=== PATIENT | female | born 1940 | race Caucasian/White ===

== ENCOUNTER → 2019-08-24 11:00 | Outpatient (BNVA) | payer MEDICARE, OTHER, SELFPAY | PROVIDERS: Family Provider Nurse Practitioner Family; PCP Nurse Practitioner Family; Visit Provider Nurse Practitioner Family | DX: J22 Unspecified acute lower respiratory infection (principal); J06.9 Acute upper respiratory infection, unspecified; H66.003 Acute suppurative otitis media without spontaneous rupture of ear drum, bilateral; E11.69 Type 2 diabetes mellitus with other specified complication; E78.5 Hyperlipidemia, unspecified; E55.9 Vitamin D deficiency, unspecified; I10 Essential (primary) hypertension; E11.9 Type 2 diabetes mellitus without complications; E03.9 Hypothyroidism, unspecified; Z79.899 Other long term (current) drug therapy | CPT/HCPCS: 80053; 80061; 81001; 81003; 82306; 82652; 83036; 84443; 85007; 85027; 87077; 87086; 87184; 87186 ==

== ENCOUNTER 2019-12-22 10:50 | Outpatient (CLI) | payer MEDICARE, OTHER, SELFPAY ==
--- NOTE | 2019-12-22 10:57 | FL_ITS ---
WS: [id number] Modified barium swallow, 12/22/2019 Clinical Data: Other dysphagia Comparison: None. Fluoroscopy time: 1.8 minutes. Findings: The patient had difficulty initiating swallowing. Frequently the bolus would pool at the vallecula a nd a second bolus of liquid as necessary to propel it distally. There was no aspiration or penetratio n. FL/FL barium swallow modifd [id number] Impression: 1. Poor initiation of swallowing. 2. Pooling of the bolus at the vallecula. 3. Negative for aspiration or penetration.
== END 2019-12-22 10:51 | disposition home or self-care (01) ==
LOC: RAD 10:54
PROVIDERS: Family Provider Nurse Practitioner Family; PCP Nurse Practitioner Family; Visit Provider Otolaryngology
DX: R13.19 Other dysphagia (principal)
CPT/HCPCS: 74230; 92611

== ENCOUNTER 2020-01-12 06:00 | Outpatient (RCR) | payer MEDICARE, OTHER, SELFPAY | END 2020-02-11 23:59 | disposition home or self-care (01) | LOC: WST 06:00 | PROVIDERS: PCP Nurse Practitioner Family; Referring Provider Nurse Practitioner Family; Visit Provider Nurse Practitioner Family | DX: D49.6 Neoplasm of unspecified behavior of brain (principal); J38.00 Paralysis of vocal cords and larynx, unspecified; R13.10 Dysphagia, unspecified | CPT/HCPCS: 92524; 92526; 92610 ==

== ENCOUNTER 2020-02-07 09:55 | Outpatient (CLI) | payer MEDICARE, OTHER, SELFPAY ==
--- NOTE | 2020-02-07 10:20 | ECG_ITS ---
[facility] Test Date: 2020-02-07 Pat Name: Kaur Garland Department: Room: Gender: Female Test Carrier: : 1940 Requested By: Robin Washington Order Number: [id number] Feli MD: Emeli Huggins M.D. Measurements Intervals [place] Rate: 79 P: 4 NM: 153 QRS: -3 QRSD: 94 T: 16 QT: 344 QTc: 395 Interpretive Statements SINUS RHYTHM WITH OCCASIONAL SUPRAVENTRICULAR PREMATURE COMPLEXES Compared to ECG 10/13/2018 15:53:08 No significant changes Electronically Signed On 02-07-2020 21:39:10 CDT by Emeli Huggins M.D. [id number]
[2020-02-07 10:42] LABS: Basophils # 0.1 10^3/uL (0.0-0.1); Basophils % 0.8 %; Eosinophils # 0.1 10^3/uL (0.0-0.8); Eosinophils % 1.9 %; Hematocrit 44.5 % (37.0-47.0); Hemoglobin 14.6 g/dL (11.5-15.3); Lymphocytes # 1.3 10^3/uL (0.8-4.8); Lymphocytes % 21.1 %; Mean Corpuscular HGB Conc 32.8 g/dL (30.0-36.0); Mean Corpuscular Hemoglobin 29.4 pg (28.0-34.0); Mean Corpuscular Volume 89.7 fL (81-99); Mean Platelet Volume 10.9 fL (7.4-10.4); Monocytes # 0.5 10^3/uL (0.2-0.9); Monocytes % 8.6 %; Neutrophils % 66.6 %; Nucleated Red Blood Cells % 0 %; Platelet Count 226 10^3/cmm (130-400); Red Blood Count 4.96 10^6/uL (4.1-5.3); Red Cell Distribution Width 13.2 % (12.1-15.1); White Blood Count 6.2 10^3/uL (4.0-10.0)
[2020-02-07 10:51] LABS: Blood Urea Nitrogen 19 mg/dL (8-23); Calcium 8.7 mg/dL (8.5-10.5); Carbon Dioxide 25 mmol/L (22-29); Chloride 97 mmol/L (98-107); Glucose 156 mg/dL (65-115); Osmolality Calculated 282 mOsm/kg (285-295); Sodium 136 mmol/L (136-145)
[2020-02-07 10:57] LABS: Anion Gap 18.2 (5-19); Potassium 4.2 mmol/L (3.5-5.1)
== END 2020-02-07 09:56 | disposition home or self-care (01) ==
LOC: RT 09:59
PROVIDERS: PCP Nurse Practitioner Family; Visit Provider Specialist
DX: Z01.810 Encounter for preprocedural cardiovascular examination (principal); I47.1 Supraventricular tachycardia
CPT/HCPCS: 12345; 36415; 80048; 80053; 85007; 85025; 85027; 93005; 96375; G0378; J2405; J3490; J7799

== ENCOUNTER 2020-02-12 06:00 | Outpatient (RCR) | payer MEDICARE, OTHER, SELFPAY | END 2020-03-13 23:59 | disposition home or self-care (01) | LOC: WST 06:00 | PROVIDERS: PCP Nurse Practitioner Family; Referring Provider Nurse Practitioner Family; Visit Provider Nurse Practitioner Family | DX: D49.6 Neoplasm of unspecified behavior of brain (principal); J38.00 Paralysis of vocal cords and larynx, unspecified; R13.10 Dysphagia, unspecified | CPT/HCPCS: 92507; 92526 ==

== ENCOUNTER 2020-02-15 06:41 | Day surgery (SDC) | payer MEDICARE, OTHER, SELFPAY ==
[2020-02-15] VITALS (15 sets, daily range): BP systolic 138–201; BP diastolic 59–117; PULSE 87–99; RESP 16–23; TEMP 36.1–36.5; O2SAT 95–100
[2020-02-15 07:24] LABS: Glucose Point of Care 109 mg/dL (70-110)
[2020-02-15] MEDS: sodium chloride 0.9% 1,000 ML 30 ML IV (07:38)
[2020-02-15] MEDS: hyDRALAzine 20 mg/mL INJ 1 mL 5 MG IVP (07:39)
[2020-02-15] MEDS: hyDRALAzine 20 mg/mL INJ 1 mL ×2 (07:46→08:01)
--- NOTE | 2020-02-15 08:15 | ANES.PREANE2 ---
Pre-Anesthetic Assessment Pre-Anesthetic Assessment: Height/Weight: Height 1.65 m Weight 65.771 kg Temp Pulse Resp BP Pulse Ox 97.3 F L 99 16 157/72 97 02/15/20 06:58 02/15/20 06:58 02/15/20 06:58 02/15/20 08:13 02/15/20 06:58 Proposed Procedure: Operation Date: 02/15/20 08:15 Proposed Procedures p Direct MICRO DIRECT Laryngoscopy(Bilateral) - Robin Griffin MD s True Vocal Cord Injection(Bilateral) - Robin Griffin MD Familial anesthetic complications: PONV Last intake: Intake Last Liquid Date 02/14/20 Last Liquid Time 22:00 Last Solid Date 02/14/20 Last Solid Time 22:00 Social: Social History: No alcohol and No tobacco Exam: Pre-Anes Outpt Exam: alert, oriented x 3, clear to auscultation bilaterally and regular rate & rhythm Airway: Cervical ROM: WNL MP: 2 Dentition: False Pulmonary: Pulmonary: None reported CV/HEM: CV/HEM: HTN : : None reported Hepatic: Hepatic: None reported GI: GI: GERD Metabolic: Metabolic: DM, Hyperlipidemia and Thyroid Musc/skel: Musc/skel: None reported Neuropsych: Neuropsych: None reported Anesthetic Plan: ASA status: 2 Anesthesia: General Risk of > 500 ml blood loss (7ml/kg in children): No Meds/Allergies Current Medications: Current Medications Generic Name Dose Route Start Last Admin Trade Name Freq PRN Reason Stop Dose Admin Hydralazine HCl 5 mg 02/15/20 07:27 02/15/20 07:39 Apresoline IVP 5 mg ONCE PRN Administration HTN Sodium Chloride 1,000 mls @ 30 ml s/hr 02/15/20 07:00 02/15/20 07:38 Sodium Chloride 0.9% IV 02/16/20 06:59 30 mls/hr .Q24H LOVE Administration PFSH Anesthesia PFSH: Medical History Brain tumor Cricopharyngeal achalasia Diabetes mellitus, type II Diabetic polyneuropathy Essential hypertension, benign GERD (gastroesophageal reflux disease) Hyperlipidemia associated with type 2 diabetes mellitus Patient is diabetic, and history of hyperlipidemia. Hypertension Patient has been controlled with oral blood pressure medications. Hypothyroid Smell, impaired Taste absent Vitamin D deficiency Patient has history of Vitamin D deficiency. Surgical History H/O brain surgery Brain Tumor removed 2011 History of bladder surgery S/P appendectomy S/P arthroscopy of left shoulder S/P cataract surgery S/P cholecystectomy S/P gastric bypass S/P vaginal hysterectomy Status post corneal transplant Social History Smoking and tobacco status: former smoker Second hand smoke exposure: No Smoking risk assessment/counseling performed?: No Alcohol intake: never Desire information about alcohol rehabilitation?: No Counseling given: No Desire information about substance/drug rehabilitation?: No Counseling given: No Data Anesthesia Other Labs: Laboratory Results - last 48 hr 02/15/20 07:21 POC Glucose 109 Cardiac Studies: No Data to Display
--- NOTE | 2020-02-15 08:28 | W.PM.OPSUD ---
Surgery/Procedure H&P Update DATE OF PROCEDURE: February 15, 2020 DATE H&P PERFORMED: 02/07/20 H&P UPDATE INFORMATION: I have reviewed H&P completed within last 30 days, I have examined patient prior to procedure and No changes to prior documentation PREOP DIAGNOSIS: Left true vocal cord paralysis; Hoarseness PRIMARY INDICATION FOR PROCEDURE: Chronic Hoarseness Left true vocal cord paralysis PLANNED PROCEDURE: Operation Date: 02/15/20 08:15 Proposed Procedures p Direct MICRO DIRECT Laryngoscopy(Bilateral) - Robin Griffin MD s True Vocal Cord Injection(Bilateral) - Robin Griffin MD
[2020-02-15] MEDS: clindamycin 600 MG/50 ML PREMIX 100 MG IV (08:35)
[2020-02-15] MEDS: EPINEPHrine 1 mg/mL INJ XX (08:53)
[2020-02-15] MEDS: fluorescein 1 mg Strip XX (08:54)
--- NOTE | 2020-02-15 09:10 | PM.OP ---
Operative Report Date of procedure: February 15, 2020 Pre-op Diagnosis: Left true vocal cord paralysis; Hoarseness Post-op diagnosis: same Post-op Findings: Left true vocal cord atrophy Otherwise normal laryngeal exam Implants: Prolaryn Hydroxyapatite/Gel Implant Pathology: none sent Surgeon: Robin Griffin Business Manager College Or University: [employer] Anesthesia: General Estimated blood loss (mL): 1 IV fluids (mL): 400 Complications: None Condition: stable Disposition: PACU Brief History: 80 yo wf with a h/o left true vocal cord paralysis and significant hoarseness who desires surgical therapy. Procedure: The patient was identified in the preoperative holding area and was taken to the operating room where she was placed on the operating table in the supine position. Anesthesia was obtained with general endotracheal anesthesia and the table was then turned 90 degrees to the patient's left. The patient was then prepped and draped in the usual sterile fashion. A moist Ray-Hilary was placed on the patient's maxillary gingiva and a surgical laryngoscope was advanced on the right oral cavity gutter under direct vision until the larynx came into view. An inspection was then carried to the patient's larynx with findings noted above. At this point the patient was placed on suspension and the operating microscope with a 300 lens was brought into the field was used to reinspect the larynx. The ProLaryn hydroxyapatite/gel implant was then injected in the left true vocal cord lateral to the vocal process of the arytenoid cartilage thus medializing the left true vocal cord towards the midline. Once the appropriate amount of medialization of been accomplished, attention was turned to the right true vocal cord. 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 Once this was accomplished, the procedure was terminated and control of the patient was returned to anesthesia where she underwent an uneventful reversal of anesthesia and extubation and the patient was taken to the recovery room in stable condition. There were no operative or anesthetic complications.
--- NOTE | 2020-02-15 09:11 | SUR.PHASEI ---
0925 PATIENT TO PACU FROM OR AT THIS TIME. NO DISTRESS. RR EVEN AND UNLABORED. SPO2 100% ON SIMPLE MASK AT 8L.
--- NOTE | 2020-02-15 09:33 | SUR.PHASEI ---
0928 PATIENT TO OPS, INSTRUCTED NOT TO TALK. VOICE HOARSE. PATIENT DENIES PAIN.
== END 2020-02-15 10:05 | disposition home or self-care (01) ==
PROVIDERS: PCP Nurse Practitioner Family; Visit Provider Specialist
PROC: 0CJS8ZZ Inspection of Larynx, Via Natural or Artificial Opening Endoscopic (ICD-10-PCS; CPT 31571; principal; 2020-02-15 08:15)
PROC: 3E0F3GC Introduction of Other Therapeutic Substance into Respiratory Tract, Percutaneous Approach (ICD-10-PCS; CPT 31571; 2020-02-15 08:15)
DX: J38.01 Paralysis of vocal cords and larynx, unilateral (principal); R49.0 Dysphonia; I10 Essential (primary) hypertension; K21.9 Gastro-esophageal reflux disease without esophagitis; E78.5 Hyperlipidemia, unspecified; E11.42 Type 2 diabetes mellitus with diabetic polyneuropathy; E03.9 Hypothyroidism, unspecified; Z87.891 Personal history of nicotine dependence
CPT/HCPCS: 31571; 12345; 36416; 82962; 96374; 96375; J0171; J0330; J0360; J2704; J3010; J3490; J7030

== ENCOUNTER → 2020-05-23 15:00 | Outpatient (BNVA) | payer MEDICARE, OTHER, SELFPAY | PROVIDERS: PCP Nurse Practitioner Family; Visit Provider Nurse Practitioner Family | DX: N39.0 Urinary tract infection, site not specified (principal) | CPT/HCPCS: 80053; 81003; 87077; 87086; 87184 ==

== ENCOUNTER 2020-06-09 11:42 | Inpatient (IN) | payer MEDICARE, OTHER, SELFPAY ==
[2020-06-09] VITALS (13 sets, daily range): BP systolic 101–146; BP diastolic 49–74; PULSE 87–109; RESP 16–22; TEMP 36.9–37.2; O2SAT 92–98; BMI 22.2
--- NOTE | 2020-06-09 11:56 | ECG_ITS ---
[facility] Test Date: 2020-06-09 Pat Name: Kaur Garland Department: Room: Gender: Female Certified Shorthand Reporter: : 1940 Requested By: Terrell Farmer Order Number: [id number] Reading MD: GUANACO FERNANDEZ Measurements Intervals [place] Rate: 94 P: 7 VT: 138 QRS: 7 QRSD: 106 T: -15 QT: 327 QTc: 410 Interpretive Statements SINUS RHYTHM PROBABLE INFERIOR MYOCARDIAL INFARCTION , OF INDETERMINATE AGE [35 ms Q WAVE IN II/aVF] Compared to ECG 02/07/2020 10:15:17 Myocardial infarct finding now present Electronically Signed On 06-09-2020 19:58:38 AGRICULTURE ENGINEER by GUANACO FERNANDEZ [id number] f
[2020-06-09 12:09] LABS: Basophils # 0.2 10^3/uL (0.0-0.1); Basophils % 0.8 %; Eosinophils # 0.1 10^3/uL (0.0-0.8); Eosinophils % 0.6 %; Hematocrit 44.5 % (37.0-47.0); Hemoglobin 14.2 g/dL (11.5-15.3); Lymphocytes # 0.6 10^3/uL (0.8-4.8); Lymphocytes % 2.7 %; Mean Corpuscular HGB Conc 31.9 g/dL (30.0-36.0); Mean Corpuscular Hemoglobin 28.6 pg (28.0-34.0); Mean Corpuscular Volume 89.5 fL (81-99); Monocytes # 1.5 10^3/uL (0.2-0.9); Monocytes % 6.5 %; Neutrophils # 20.56 10^3/uL (1.8-7.7); Neutrophils % 88.8 %; Nucleated Red Blood Cells % 0 %; Platelet Count 282 10^3/cmm (130-400); Red Blood Count 4.97 10^6/uL (4.1-5.3); Red Cell Distribution Width 12.8 % (12.1-15.1); White Blood Count 23.1 10^3/uL (4.0-10.0)
--- NOTE | 2020-06-09 12:35 | CT_ITS ---
WS: [id number] CT ABDOMEN AND PELVIS WITH CONTRAST HISTORY: abd pain, weakness and diarrhea. TECHNIQUE: Imaging performed of the abdomen and pelvis with IV contrast. Single phase imaging of the abdomen. Coronal and sagittal reformats are submitted. All CT scans at [facility] use at least one of these dose optimization techniques: automated exposure control; mA and/or kV adjustment per patient size (includes targeted exams where dose is matched to clinical indication); or iterativ e reconstruction. IV CONTRAST: Visipaque 320; 95 mL IV. Oral contrast: No DLP: 461.49 mGy.cm COMPARISON: None available. Lower thorax: Lung bases are clear. Heart is normal size. No hiatal hernia. Liver/biliary system: Normal size liver. Marked intrahepatic duct dilatation. Common bile duct at the pancreatic head measures 11 mm. Gallbladder: Status post cholecystectomy. Pancreas: Atrophy of the pancreas. No duct dilatation. Spleen: Normal. Adrenal glands: Normal. Right kidney: Mild atrophy. No obstruction. Left kidney: Mild atrophy and cortical thinning with scarring. Small extrarenal pelvis. There is no o bstruction. Aorta: Mild atherosclerosis with no aneurysm. Lymphadenopathy: None. Free fluid: None. GI tract: Moderate circumferential mucosal thickening and edema involving the antrum and proximal duo denum. No obstruction is apparent. The remaining GI tract is negative. No obstruction. Abdominal wall: Unremarkable abdominal wall. No hernia. Pelvis: Normally distended urinary bladder. Prior hysterectomy. Bones: Mild anterior wedging of L1. CT/CT abdomen pelvis w con* [id number] IMPRESSION: 1. Mild diffuse circumferential thickening of the antrum and proximal duodenum is probably due to gastritis and duodenitis. No obstruction. 2. Prior cholecystectomy. 3. Marked intrahepatic and extrahepatic duct dilatation. Common bile duct verena ures up to 11 mm at the pancreatic head. Duct dilatation may all be physiologic and related to the prior cholecystectomy. 4. Bilateral renal atrophy.
--- NOTE | 2020-06-09 12:35 | XR_ITS ---
WS: [id number] PORTABLE CHEST HISTORY: dyspnea/cough COMPARISON: 04/02/2019, 10/13/2018 Linear scarring at the lung bases. No pneumonia. No pleural effusion or pneumothorax. Cardiac size: Normal. Mediastinum/Aorta: Mild atherosclerosis aorta. Prior rotator cuff repair on the RIGHT. XR/XR chest 1V portable [id number] IMPRESSION: Mild atherosclerosis aorta. No pneumonia.
--- NOTE | 2020-06-09 12:38 | ED_ITS ---
HPI - Weakness General: Chief complaint: Weakness Stated complaint: GENERALIZED WEAKNESS/ DIARRHEA Time Seen by Provider: 06/09/20 11:48 History of Present Illness: HPI Narrative: 80-year-old female presents emergency room complaining of generalized weakness and discomfort. She has some abdominal discomfort she had diarrhea for the last week and he began progressively weaker. She has been taking Pepto-Bismol very regularly and has noted black stool she is not on any bright red stools. She denies any vomiting of any coffee-ground emesis or bloody emesis. She denies cough denies shortness of breath subjectively she reports having had a fever denies dysuria urgency no chest pain. She has not really noticed anything that makes it better or worse. MD Complaint: generalized weakness Onset (ago): week(s) Duration: intermittent and progressively worsening Location: generalized Migration: none Severity: moderate Quality: dull Relieving factors: none Exacerbating factors: none Associated symptoms: Reports melena; Denies chest pain, chills, confusion, decreased appetite, diaphoresis, dysuria, easy bruising, fever(s), headache(s), myalgias, nausea, rash, short of breath, syncope or vomiting Review of Systems Const: Denies: fever(s), chills or diaphoresis ENMT: Denies: throat pain, ear or mastoid pain, nasal discharge or nasal congestion Card: Denies: chest pain or syncope Resp: Denies: dyspnea, productive cough or non-productive cough GI: Reports: melena; Denies: nausea or vomiting : Denies: dysuria Skin/Breast: Denies: rash or pruritus Neuro: Denies: headache(s) or confusion Dm/Lymph: Denies: easy bruising PFS ED PFSH: Medical History (Updated 06/12/20 @ 07:46 by Terrell Casanova DO) Brain tumor Cricopharyngeal achalasia Diabetes mellitus, type II Diabetic polyneuropathy Essential hypertension, benign GERD (gastroesophageal reflux disease) Hyperlipidemia associated with type 2 diabetes mellitus Patient is diabetic, and history of hyperlipidemia. Hypertension Patient has been controlled with oral blood pressure medications. Hypothyroid Smell, impaired Taste absent Vitamin D deficiency Patient has history of Vitamin D deficiency. Surgical History H/O brain surgery Brain Tumor removed 2012 History of bladder surgery S/P appendectomy S/P arthroscopy of left shoulder S/P cataract surgery S/P cholecystectomy S/P gastric bypass S/P vaginal hysterectomy Status post corneal transplant Social History Smoking and tobacco status: former smoker Second hand smoke exposure: No Smoking risk assessment/counseling performed?: No Alcohol intake: never Desire information about alcohol rehabilitation?: No Counseling given: No Desire information about substance/drug rehabilitation?: No Counseling given: No Physical Exam Const: COMMON NORMALS: no acute distress GENERAL APPEARANCE: cooperative and comfortable ORIENTATION/CONSCIOUSNESS: Yes awake, Yes oriented to person, Yes oriented to place and Yes oriented to time HENMT: COMMON NORMALS: normocephalic, atraumatic, hearing grossly normal bilaterally, external ears normal, moist oral mucous membranes and oropharynx normal HEAD & SCALP: normocephalic and atraumatic EXTERNAL EAR: Yes external ears normal Eye: COMMON NORMALS: Equal, round and reactive pupils present, EOMs intact bilaterally, conjunctivae normal and no scleral icterus CONJUNCTIVA: Yes conjunctivae normal PUPIL: Yes Equal, round and reactive pupils present Neck/C-Spine: COMMON NORMALS: no JVD Lymph: LYMPHATIC: no lymphadenopathy noted and no lymphedema noted Resp: COMMON NORMALS: normal respiratory effort, No retractions, No use of accessory muscles and clear to auscultation bilaterally AUSCULTATION: clear to auscultation bilaterally Cardio: COMMON NORMALS: no JVD, regular rate, regular rhythm and No murmurs present (Cardio) RATE: regular rate RHYTHM: regular rhythm GI: COMMON NORMALS: Soft to palpation and No hepatosplenomegaly present AUSCULTATION: Yes normoactive bowel sounds PALPATION: Yes Soft to palpation, No Tenderness to palpation present (GI), No Guarding due to palpation present (GI) and Yes No hepatosplenomegaly present Extremity: COMMON NORMALS: normal to inspection, capillary refill normal, no clubbing, cyanosis or edema, no calf tenderness and no pedal edema Neuro: SENSORIUM/ORIENTATION: Yes oriented to person, Yes oriented to place and Yes oriented to time Skin: COMMON NORMALS: no rashes or lesions noted GENERAL SKIN EXAM: no rashes or lesions noted Course Vital Signs: Vital signs: Vital Signs Temperature 99.0 F 06/11/20 00:29 Pulse Rate 96 06/11/20 00:29 Respiratory Rate 25 H 06/11/20 00:29 Blood Pressure 104/53 06/11/20 00:29 Pulse Oximetry 97 06/11/20 00:29 MDM - Weakness MDM Narrative: Medical decision making narrative: MRCP was less than ideal study discussed Dr. Elliott organ to go admitted we will repeat the MRCP start on antibiotics cultures have been done Dr. Elliott seeing her in the ER department. Lab Data: Labs: Lab Results 06/09/20 06/09/20 06/09/20 Range/Units 11:00 11:00 11:00 WBC 23.1 H (4.0-10.0) 10^3/ uL RBC 4.97 (4.1-5.3) 10^6/u L Hgb 14.2 (11.5-15.3) g/dL Hct 44.5 (37.0-47.0) % MCV 89.5 (81-99) fL MCH 28.6 (28.0-34.0) pg MCHC 31.9 (30.0-36.0) g/dL RDW 12.8 (12.1-15.1) % Plt Count 282 (130-400) 10^3/c mm MPV 12.0 H (7.4-10.4) fL Neut % (Auto) 88.8 % Lymph % (Auto) 2.7 % [place] % (Auto) 6.5 % Eos % (Auto) 0.6 % Baso % (Auto) 0.8 % Neut # (Auto) 20.56 H (1.8-7.7) 10^3/u L Lymph # (Auto) 0.6 L (0.8-4.8) 10^3/u L [place] # (Auto) 1.5 H (0.2-0.9) 10^3/u L Eos # (Auto) 0.1 (0.0-0.8) 10^3/u L Baso # (Auto) 0.2 H (0.0-0.1) 10^3/u L Nucleated RBC % (a uto) 0 % Nucleated RBCs # 0.0 /100WBC PT 13.10 (12.1-14.9) SECO NDS INR 0.96 (0.8-1.2) APTT 24.1 (23.9-36.7) SECO NDS Sodium 134 L (136-145) mmol/L Potassium 3.6 (3.5-5.1) mmol/L Chloride 93 L (98-107) mmol/L Carbon Dioxide 22 (22-29) mmol/L Anion Gap 22.6 H (5-19) BUN 33 H (8-23) mg/dL Creatinine 1.3 H (0.5-0.9) mg/dL GFR Calculation Not Reportable Glucose 232 H (65-115) mg/dL Calculated Osmolal ity 293 (285-295) mOsm/k g Calcium 8.8 (8.5-10.5) mg/dL Total Bilirubin 1.1 (0.15-1.2) mg/dL AST 104 H (0-32) U/L ALT 177 H (0-33) U/L Alkaline Phosphata se 512 H (35-105) IU/L Troponin T Baselin e (0-10) ng/L Troponin T 120 Min [place] (0-10) ng/L Delta Troponin T (0-10) ABS# Total Protein 5.6 L (6.6-8.7) g/dL Albumin 3.5 (3.5-5.2) g/dL Globulin 2.1 (1.3-4.6) g/dL Lipase (13-60) U/L Urine Color (Yellow) Urine Appearance (CLEAR) Urine pH (5-7) Ur Specific Gravit y (1.005-1.030) Urine Protein (Negative) Urine Glucose (UA) (Normal) Urine Ketones (Negative) Urine Blood (Negative) Urine Nitrate (Negative) Urine Bilirubin (Negative) Urine Urobilinogen (Negative) mg/dL Ur Leukocyte Aisha ase (Negative) Hepatitis A IgM Ab (Nonreactive) Hep Bs Antigen (Nonreactive) Hep B Core IgM Ab (Nonreactive) Hepatitis C Antibo dy (Nonreactive) SARS-CoV-2 Ag (Rap id) (Negative) 06/09/20 06/09/20 06/09/20 Range/Units 11:00 11:00 13:10 WBC (4.0-10.0) 10^3/ uL RBC (4.1-5.3) 10^6/u L Hgb (11.5-15.3) g/dL Hct (37.0-47.0) % MCV (81-99) fL MCH (28.0-34.0) pg MCHC (30.0-36.0) g/dL RDW (12.1-15.1) % Plt Count (130-400) 10^3/c mm MPV (7.4-10.4) fL Neut % (Auto) % Lymph % (Auto) % [place] % (Auto) % Eos % (Auto) % Baso % (Auto) % Neut # (Auto) (1.8-7.7) 10^3/u L Lymph # (Auto) (0.8-4.8) 10^3/u L [place] # (Auto) (0.2-0.9) 10^3/u L Eos # (Auto) (0.0-0.8) 10^3/u L Baso # (Auto) (0.0-0.1) 10^3/u L Nucleated RBC % (a uto) % Nucleated RBCs # /100WBC PT (12.1-14.9) SECO NDS INR (0.8-1.2) APTT (23.9-36.7) SECO NDS Sodium (136-145) mmol/L Potassium (3.5-5.1) mmol/L Chloride (98-107) mmol/L Carbon Dioxide (22-29) mmol/L Anion Gap (5-19) BUN (8-23) mg/dL Creatinine (0.5-0.9) mg/dL GFR Calculation Glucose (65-115) mg/dL Calculated Osmolal ity (285-295) mOsm/k g Calcium (8.5-10.5) mg/dL Total Bilirubin (0.15-1.2) mg/dL AST (0-32) U/L ALT (0-33) U/L Alkaline Phosphata se (35-105) IU/L Troponin T Baselin e (0-10) ng/L Troponin T 120 Min [place] (0-10) ng/L Delta Troponin T (0-10) ABS# Total Protein (6.6-8.7) g/dL Albumin (3.5-5.2) g/dL Globulin (1.3-4.6) g/dL Lipase 6 L (13-60) U/L Urine Color (Yellow) Urine Appearance (CLEAR) Urine pH (5-7) Ur Specific Gravit y (1.005-1.030) Urine Protein (Negative) Urine Glucose (UA) (Normal) Urine Ketones (Negative) Urine Blood (Negative) Urine Nitrate (Negative) Urine Bilirubin (Negative) Urine Urobilinogen (Negative) mg/dL Ur Leukocyte Aisha ase (Negative) Hepatitis A IgM Ab Non-reactive (Nonreactive) Hep Bs Antigen Non-reactive (Nonreactive) Hep B Core IgM Ab Non-reactive (Nonreactive) Hepatitis C Antibo dy Non-reactive (Nonreactive) SARS-CoV-2 Ag (Rap id) Negative (Negative) 06/09/20 06/09/20 06/09/20 Range/Units 13:16 15:17 17:05 WBC (4.0-10.0) 10^3/ uL RBC (4.1-5.3) 10^6/u L Hgb (11.5-15.3) g/dL Hct (37.0-47.0) % MCV (81-99) fL MCH (28.0-34.0) pg MCHC (30.0-36.0) g/dL RDW (12.1-15.1) % Plt Count (130-400) 10^3/c mm MPV (7.4-10.4) fL Neut % (Auto) % Lymph % (Auto) % [place] % (Auto) % Eos % (Auto) % Baso % (Auto) % Neut # (Auto) (1.8-7.7) 10^3/u L Lymph # (Auto) (0.8-4.8) 10^3/u L [place] # (Auto) (0.2-0.9) 10^3/u L Eos # (Auto) (0.0-0.8) 10^3/u L Baso # (Auto) (0.0-0.1) 10^3/u L Nucleated RBC % (a uto) % Nucleated RBCs # /100WBC PT (12.1-14.9) SECO NDS INR (0.8-1.2) APTT (23.9-36.7) SECO NDS Sodium (136-145) mmol/L Potassium (3.5-5.1) mmol/L Chloride (98-107) mmol/L Carbon Dioxide (22-29) mmol/L Anion Gap (5-19) BUN (8-23) mg/dL Creatinine (0.5-0.9) mg/dL GFR Calculation Glucose (65-115) mg/dL Calculated Osmolal ity (285-295) mOsm/k g Calcium (8.5-10.5) mg/dL Total Bilirubin (0.15-1.2) mg/dL AST (0-32) U/L ALT (0-33) U/L Alkaline Phosphata se (35-105) IU/L Troponin T Baselin e 25 H (0-10) ng/L Troponin T 120 Min [place] 23.50 H (0-10) ng/L Delta Troponin T -1.50 L (0-10) ABS# Total Protein (6.6-8.7) g/dL Albumin (3.5-5.2) g/dL Globulin (1.3-4.6) g/dL Lipase (13-60) U/L Urine Color Yellow (Yellow) Urine Appearance Clear (CLEAR) Urine pH 5.0 (5-7) Ur Specific Gravit y 1.020 (1.005-1.030) Urine Protein Neg (Negative) Urine Glucose (UA) Norm (Normal) Urine Ketones 1+ H (Negative) Urine Blood Neg (Negative) Urine Nitrate Negative (Negative) Urine Bilirubin 1+ H (Negative) Urine Urobilinogen 1 H (Negative) mg/dL Ur Leukocyte Aisha ase Negative (Negative) Hepatitis A IgM Ab (Nonreactive) Hep Bs Antigen (Nonreactive) Hep B Core IgM Ab (Nonreactive) Hepatitis C Antibo dy (Nonreactive) SARS-CoV-2 Ag (Rap id) (Negative) Discharge Plan Discharge Patient Disposition: Admitted As Inpatient Admit Provider: Miguel Elliott Clinical Impression: Abdominal pain, EVGENY (acute kidney injury), Hypertension, Diabetes mellitus, type II Coding Level of Care Code ED Community Services Officer for g Fwd Exam Comprehensive
[2020-06-09 12:39] LABS: INR 0.96 (0.8-1.2)
[2020-06-09 12:40] LABS: Partial Thromboplastin Time 24.1 SECONDS (23.9-36.7)
[2020-06-09 12:42] LABS: Alanine Aminotransferase 177 U/L (0-33); Albumin Level 3.5 g/dL (3.5-5.2); Alkaline Phosphatase 512 IU/L (35-105); Anion Gap 22.6 (5-19); Aspartate Amino Transferase 104 U/L (0-32); Blood Urea Nitrogen 33 mg/dL (8-23); Calcium 8.8 mg/dL (8.5-10.5); Carbon Dioxide 22 mmol/L (22-29); Chloride 93 mmol/L (98-107); Globulin 2.1 g/dL (1.3-4.6); Glucose 232 mg/dL (65-115); Osmolality Calculated 293 mOsm/kg (285-295); Potassium 3.6 mmol/L (3.5-5.1); Sodium 134 mmol/L (136-145); Total Bilirubin 1.1 mg/dL (0.15-1.2); Total Protein 5.6 g/dL (6.6-8.7)
[2020-06-09] MEDS: cefTRIAXone 1,000 MG in sodium chloride 0.9% (plus) 50 ML 100 MG IV (13:19)
[2020-06-09 13:21] LABS: Add Urine Microscopic? NO
[2020-06-09 13:26] LABS: Bilirubin Urine 1+ (Negative); Blood Urine Neg (Negative); Glucose Urine UA Norm (Normal); Ketones Urine 1+ (Negative); Leukocyte Esterase Urine Negative (Negative); Nitrate Urine Negative (Negative); Protein Urine Neg (Negative); Urine Appearance Clear (CLEAR); Urine Color Yellow (Yellow); Urobilinogen Urine 1 mg/dL (Negative)
[2020-06-09 13:44] LABS: SARS Covid-2 Antigen Negative (Negative)
[2020-06-09] MEDS: iodixanol 320 mg/mL 100mL Btl IV (13:55)
--- NOTE | 2020-06-09 14:03 | US_ITS ---
WS: [id number] Complete ABDOMINAL ULTRASOUND HISTORY: elevated LFTs COMPARISON: None available. Liver: 16.4 cm in length. Normal size liver with intrahepatic and extrahepatic duct dilatation. No ma ss identified. Prior cholecystectomy. Pancreas: Not well visualized. CBD: 1.1 cm. Right kidney: 10.7 cm x 5.2 cm x 5.2 cm. No mass, cortical thickening or hydronephrosis. Left kidney: 10.1 cm x 4.2 cm x 4.2 cm. No mass, cortical thickening or hydronephrosis. Spleen: Normal size and echogenicity. Abdominal aorta and IVC are within normal limits. No ascites. US/US abdomen complete* [id number] IMPRESSION: 1. Moderate intrahepatic and extrahepatic common bile duct dilatation. May be physiologic on the basis of cholecystectomy and aging. 2. Prior cholecystectomy. 3. Pancreas not well visualized.
[2020-06-09] MEDS: sodium chloride 0.9% 1,000 ML 999 ML IV (14:34)
[2020-06-09 14:42] LABS: Hepatitis B Core IgM Non-Reactive (Nonreactive); Hepatitis B Surface Antigen Non-Reactive (Nonreactive); Hepatitis C Virus Antibody Non-Reactive (Nonreactive)
--- NOTE | 2020-06-09 14:42 | MRR_ITS ---
PROCEDURE INFORMATION: Exam: MR Abdomen Without Contrast Exam date and time: 06/09/2020 2:44 PM Age: 80 years old Clinical indication: Patient HX: Diarrhea x 1 week , black stool, ; additional info: Dialated cbd with elevated lfts TECHNIQUE: Imaging protocol: MR of the abdomen without contrast. COMPARISON: CT abdomen pelvis w con* [id number] 06/09/2020 1:43 PM FINDINGS: Limitations: This is primarily an MRCP study with limited MRI noncontrast images. The main MRI series 4 fails to completely include the common bile duct. Liver: The liver is normal within the limits of noncontrast scan. Gallbladder and bile ducts: Status post cholecystectomy. There is moderate dilation of intrahepatic and extrahepatic bile ducts. MRCP demonstrates the common bile duct to measure up to 17 mm in diameter. No filling defect is identified to indicate choledochal calculus. No obstructive lesion is identified within the limits of a noncontrast scan. Pancreas: The pancreas is normal within the limits of a noncontrast scan. Pancreatic duct in the head of the pancreas is mildly dilated, 4 mm. It is normal in caliber throughout the remainder of the pancreas. Spleen: The spleen is normal within the limits of a noncontrast scan. Adrenals: The adrenals are normal. Kidneys and ureters: There is a partly visible left renal cyst. This is probably a simple cyst within the limits of incomplete visualization and a noncontrast scan. No hydronephrosis. Stomach and bowel: Visualized stomach and intestines are unremarkable. Intraperitoneal space: No free fluid. Arteries: No abdominal aortic aneurysm. Bones/joints: Unremarkable. Soft tissues: Unremarkable. MR/MR MRCP [id number] IMPRESSION: 1. Status post cholecystectomy with dilated intrahepatic and extrahepatic bile ducts. The common bile duct measures up to 17 mm in diameter. There is no evidence of obstructive calculus or lesion. 2. Limited scan: The main MRCP sequence fails to completely included the common bile duct. COMMENTS: Consistent with the [employer]'s Incidental Findings Committee white paper (J Am Shree Radiol 2018): Any incidental renal lesion less than 1 cm or classified as too small to characterize, or any incidental cystic renal lesion characterized as simple-appearing, is likely benign. No follow-up imaging is recommended for these lesions per consensus recommendations based on imaging criteria.
--- NOTE | 2020-06-09 14:48 | ECG_ITS ---
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
[2020-06-09] MEDS: ondansetron 2 mg/ML SDV 2 mL 4 MG IVP (14:52)
[2020-06-09 15:03] LABS: Lipase 6 U/L (13-60)
--- NOTE | 2020-06-09 15:07 | PC.NURSE ---
US was performed at bedside. Blood cultures were drawn, 1st set from IV prior to fluid start, and 2nd set as venipuncture on right forearm.
[2020-06-09 15:49] LABS: Troponin(5th) Baseline 25 ng/L (0-10)
[2020-06-09] MEDS: morphine 4 mg/mL SDV 1 mL 2 MG IVP (16:37)
--- NOTE | 2020-06-09 16:48 | ECG_ITS ---
[facility] Test Date: 2020-06-09 Pat Name: Kaur Garland Department: Room: Gender: Female Pharmacy Retail Support Specialist: : 1940 Requested By: Terrell Farmer Order Number: [id number] Reading MD: GUANACO FERNANDEZ Measurements Intervals [place] Rate: 90 P: 90 AL: 148 QRS: 12 QRSD: 89 T: -1 QT: 327 QTc: 401 Interpretive Statements SINUS RHYTHM WITH FREQUENT SUPRAVENTRICULAR PREMATURE COMPLEXES MINIMAL ST DEPRESSION [0.025+ mV ST DEPRESSION] ABNORMAL RHYTHM ECG Compared to ECG 06/09/2020 15:12:33 ST (T wave) deviation now present Electronically Signed On 06-09-2020 20:06:22 DRY COLOR MIXER by GUANACO FERNANDEZ [id number]
--- NOTE | 2020-06-09 18:05 | P.HP_ITS ---
Providers/Chief Complaint Primary Care Provider: AMY Cordova Chief Complaint: GENERALIZED WEAKNESS/ DIARRHEA History of Present Illness Kaur Garland is a 80 year old female with a past medical history of insulin- dependent type 2 diabetes mellitus, history of brain tumor status post surgical resection, cricopharyngeal achalasia, vocal cord paralysis, diabetic peripheral neuropathy, hypertension, GERD, hyperlipidemia, hypertension, hypothyroidism, status post appendectomy, status post cholecystectomy, status post gastric bypass who presents to [facility] due to complaints of diarrhea and diffuse abdominal pain. Patient tells me that she has had abdominal pain for roughly a month, nonspecific, generalized abdominal pain, occurs intermittently throughout the day, patient is usually able to tolerate the pain. But here in the last week, the pain has become much more severe, more persistent, associate with diarrhea. Patient tells me that for the last week she has had persistent diarrhea, multiple bowel movements a day, the diarrhea to her looks dark in color not black, nonbloody but dark as she has been using Pepto-Bismol [id number], last night she had profuse diarrhea throughout the night. Denies a history of food poisoning, she did recently use antibiotics in the last month for a urinary tract infection. No fevers, no chills, no nausea, no vomiting, no exposure to COVID-19. She does have a poor appetite, tells me that whenever she eats anything it runs right through her. Her last meal was over 24 hours ago. Does feel a bit lightheaded and dizzy more than usual. Denies chest pain. Denies shortness of breath. She does report roughly 8 pound weight loss recently. Review of Systems Const: Denies: fever(s), chills, fatigue or malaise Eyes: Denies: change in vision or blurry vision ENMT: Denies: nasal congestion Resp: Denies: dyspnea, productive cough, non-productive cough or wheezing GI: Reports: abdominal pain, nausea and diarrhea; Denies: vomiting, hematemesis, constipation, hematochezia or melena : Denies: flank pain, dysuria or urinary frequency Musc: Denies: neck pain or back pain Skin/Breast: Denies: rash Neuro: Denies: headache(s), dizziness or vertigo Psych: Denies: anxiety or depression Endo: Denies: polyuria or polydipsia Medications/Allergies Home Medications Medication Instructions Recorded Confirmed Last Taken Type insulin aspart U-100 100 unit/mL 6 unit SUBCUT BID 08/02/19 06/09/20 06/08/20 History (3 mL) subcutaneous pen potassium chloride 10 mEq 10 meq PO DAILY tab 08/02/19 06/09/20 06/08/20 Hist ory tablet,extended release(part/cryst) chlorthalidone 25 mg tablet 25 mg PO DAILY 90 Days #90 tab 11/17/19 06/09/20 06/08/20 Rx ergocalciferol (vitamin D2) 1,250 50,000 unit PO .weekly #12 cap 11/17/19 06/09/20 06/05/20 Rx mcg (50,000 unit) capsule lisinopril 40 mg tablet 40 mg PO DAILY 90 Days #90 tab 11/17/19 06/09/20 06/08/20 Rx meloxicam 15 mg tablet 15 mg PO DAILY #90 tab 11/17/19 06/09/20 06/08/20 Rx metoprolol tartrate 25 mg tablet 25 mg PO BID 90 Days #180 tab 11/17/19 06/09/20 06/08/20 Rx omeprazole 40 mg capsule,delayed 40 mg PO DAILY #90 cap 11/17/19 06/09/20 06/08/20 Rx release prednisolone acetate 1 % eye 1 drop OPHTHALMIC (EYE) BID #10 ml 11/17/19 06/09/20 06/08/20 Rx drops,suspension ondansetron 8 mg disintegrating 8 mg PO TID 90 Days #270 tab 02/10/20 06/09/20 06/08/20 Rx tablet albuterol sulfate 2 puff INHALATION PRN 02/14/20 06/09/20 06/08/20 History fluticasone propionate 50 1 spray INTRANASAL DAILY PRN #15.8 05/02/20 06/09/20 06/08/20 Rx mcg/actuation nasal ml spray,suspension ciprofloxacin HCl 250 mg tablet See Rx Instructions .ROUTE 06/07/20 06/09/20 06/08/20 Rx .COMPLEX #6 tab Synthroid 100 mcg PO DAILY 06/09/20 06/09/20 06/08/20 History insulin glargine [Basaglar KwikPen 10 unit SUBCUT DAILY 06/09/20 06/09/20 06/08/20 History U-100 Insulin] Allergies Allergy/AdvReac Type Severity Reaction Status Date / Time amoxicillin [From Augmentin] Allergy Mild ADR-Diarrhe Verified 02/15/20 07:02 a ampicillin Allergy Mild ADR-Diarrhe Verified 02/15/20 07:02 a clavulanic acid Allergy Mild ADR-Diarrhe Verified 02/15/20 07:02 [From Augmentin] a doxycycline Allergy Mild ADR-Diarrhe Verified 02/15/20 07:02 a hydrocodone Allergy Mild ADR-Diarrhe Verified 02/15/20 07:02 a magnesium Allergy Mild ADR-Diarrhe Verified 02/15/20 07:02 a metformin Allergy Mild ADR-Diarrhe Verified 02/15/20 07:02 a penicillin V Allergy Mild ADR-Diarrhe Verified 02/15/20 07:02 a acyclovir AdvReac Mild ADR-Diarrhe Verified 02/15/20 07:02 a codeine AdvReac Mild ADR-Faintin Verified 02/15/20 07:02 g sulfamethoxazole AdvReac Mild ADR-Diarrhe Verified 02/15/20 07:02 [From Bactrim] a trimethoprim [From Bactrim] AdvReac Mild ADR-Diarrhe Verified 02/15/20 07:02 a PFSH Acute PFSH: Medical History (Updated 06/09/20 @ 18:11 by Miguel Elliott MD) Brain tumor Cricopharyngeal achalasia Diabetes mellitus, type II Diabetic polyneuropathy Essential hypertension, benign GERD (gastroesophageal reflux disease) Hyperlipidemia associated with type 2 diabetes mellitus Patient is diabetic, and history of hyperlipidemia. Hypertension Patient has been controlled with oral blood pressure medications. Hypothyroid Smell, impaired Taste absent Vitamin D deficiency Patient has history of Vitamin D deficiency. Surgical History H/O brain surgery Brain Tumor removed 2011 History of bladder surgery S/P appendectomy S/P arthroscopy of left shoulder S/P cataract surgery S/P cholecystectomy S/P gastric bypass S/P vaginal hysterectomy Status post corneal transplant Social History Smoking and tobacco status: former smoker Second hand smoke exposure: No Smoking risk assessment/counseling performed?: No Alcohol intake: never Desire information about alcohol rehabilitation?: No Counseling given: No Desire information about substance/drug rehabilitation?: No Counseling given: No Vitals/I&O/Wt Last Vital Signs Temp 98.5 F 06/09/20 11:43 Pulse 92 06/09/20 16:55 Resp 18 06/09/20 16:55 BP 130/59 06/09/20 16:55 Pulse Ox 92 06/09/20 16:55 06/09/20 06/09/20 06/09/20 06:59 14:59 22:59 Intake Total 50 / 50 Balance 50 / 50 Weight last 48 hrs Weight 62.596 kg Physical Exam Const: COMMON NORMALS: no acute distress and patient oriented x3 GENERAL APPEARANCE: cooperative and comfortable HENMT: COMMON NORMALS: normocephalic HEAD & SCALP: normocephalic Eye: COMMON NORMALS: Equal, round and reactive pupils present and EOMs intact bilaterally GENERAL EYE: appearance normal, both eyes and all related structures PUPIL: Yes Equal, round and reactive pupils present Neck/C-Spine: COMMON NORMALS: full ROM, no lymphadenopathy, no JVD and Thyroid normal THYROID: Thyroid normal Lymph: LYMPHATIC: no lymphadenopathy noted Resp: COMMON NORMALS: normal respiratory effort, No retractions, No use of accessory muscles and clear to auscultation bilaterally AUSCULTATION: clear to auscultation bilaterally Cardio: COMMON NORMALS: no JVD, regular rate, regular rhythm, S1 normal heart sound present, S2 normal heart sound present, No gallops present (Cardio), No clicks present (Cardio) and No murmurs present (Cardio) RATE: regular rate RHYTHM: regular rhythm HEART SOUNDS: S1 normal heart sound present and S2 normal heart sound present GI: COMMON NORMALS: Normal to inspection, nondistended, normoactive bowel sounds present, Soft to palpation, non-tender and No hepatosplenomegaly present PALPATION: Yes Soft to palpation and Yes Tenderness to palpation present (GI) Details: LLQ, RLQ, LUQ and RUQ PERCUSSION: normal to percussion Extremity: COMMON NORMALS: normal to inspection, full ROM and no pedal edema Neuro: COMMON NORMALS: patient oriented x3, CN's II-XII intact bilaterally, moves all extremities and no focal motor deficits Psych: COMMON NORMALS: mental status grossly normal, Normal thought process present and cooperative THOUGHT PROCESS: Normal thought process present Data : 06/09/20 11:00 06/09/20 11:00 Micro: Microbiology 06/09/20 15:02 Blood Culture - Preliminary Blood SPECIMEN COLLECTED 06/09/20 14:53 Blood Culture - Preliminary Blood SPECIMEN COLLECTED A&P Assessment and plan (1) Abdominal pain: -Diffuse abdominal pain, with diarrhea -White blood cell count 23.1, neutrophilic 20.56 -Creatinine 1.3, BUN 33 -AST, 104, ALT 177, alk phos of 512, T bili 1.1, lipase 6 -Lactic acid ordered, pending -Ct scan of the abdomen and pelvis showed: Mild diffuse circumferential thickening of the antrum and proximal duodenum is probably due to gastritis and duodenitis. No obstruction. - Marked intrahepatic and extrahepatic duct dilatation. Common bile duct measures up to 11 mm at the pancreatic head. Duct dilatation may all be physiologic and related to the prior cholecystectomy. -us abdomen showed: Moderate intrahepatic and extrahepatic common bile duct dilatation. May be physiologic on the basis of cholecystectomy and aging. -MRCP showed: Limitations: This is primarily an MRCP study with limited MRI noncontrast images. The main MRI series 4 fails to completely include the common bile duct. Liver: The liver is normal within the limits of noncontrast scan. Gallbladder and bile ducts: Status post cholecystectomy. There is moderate dilation of intrahepatic and extrahepatic bile ducts. MRCP demonstrates the common bile duct to measure up to 17 mm in diameter. No filling defect is identified to indicate choledochal calculus. No obstructive lesion is identified within the limits of a noncontrast scan. Pancreas: The pancreas is normal within the limits of a noncontrast scan. Pancreatic duct in the head of the pancreas is mildly dilated, 4 mm. It is normal in caliber throughout the remainder of the pancreas. -Blood pressure 130/59, pulse 92, respiratory 18, temperature 98.5, 95% room air, patient's nontoxic-appearing, abdomen soft diffusely tender, no guarding, no rebound, rigidity PLAN: -Unfortunately MRCP did not completely include the common bile duct, given significant transaminitis, significant alk phos elevation, diffuse abdominal pain we need to completely evaluate common bile duct to evaluate for possible stones, strictures,as an etiology -She might possibly require an ERCP and transfer -I did briefly spoke to Dr. Arzate, general surgery, who recommends to repeat MRCP to completely include common bile duct, in addition given gastritis and duodenitis, intra pancreatic lesions such as malignancy can be associate with these findings, recommended CEA 19 -Await inflammatory markers, lactic acid -Will reorder MRCP, spoke to clock repair technician about including entire CBD, apparently there was issues of patient not holding the breath for 20 seconds, that might admitted a poor quality study, I spoke to the patient about this, she will try her best -LR at 100 cc an hour -Broad-spectrum antibiotics ciprofloxacin and Flagyl -Serial abdominal exams -Monitor for fevers -Keep patient n.p.o. -Stool studies, blood cultures, C. difficile -Full code -Lovenox for DVT prophylaxis Status: Acute (2) Hypothyroid: Status: Acute (3) Essential hypertension, benign: Continue metoprolol, hold lisinopril, hold chlorthalidone Status: Acute (4) Diabetes mellitus, type II: N.p.o., low-dose sliding scale Status: Acute (5) Vitamin D deficiency: Status: Acute (6) Hyperlipidemia associated with type 2 diabetes mellitus: Status: Acute (7) Hypertension: Status: Chronic Qualifiers: Hypertension type: essential hypertension Qualified Code(s): I10 - Essential (primary) hypertension (8) EVGENY (acute kidney injury): Creatinine 1.3, baseline 1-1.1, continue IV hydration with LR Status: Acute Attestations Medical Necessity Statement*: Patient requires hospitalization, inpatient, greater than 2 midnights, for abdominal pain concerning for biliary stricture or stone Coding Level of Care Code Acute Screwmaker Automatic for Chg Fwd Diagnoses Abdominal pain R10.9 Hypothyroid E03.9 Essential hypertension, benign I10 Diabetes mellitus, type II E11.9 Vitamin D deficiency E55.9 Hyperlipidemia associated with type 2 diabetes mellitus E11.69; E78.5 Hypertension I10 Hypertension type: essential hypertension EGVENY (acute kidney injury) N17.9
[2020-06-09] MEDS: HYDROmorphone 1 mg/mL INJ 1 mL IVP (18:07)
--- NOTE | 2020-06-09 18:07 | MRR_ITS ---
PROCEDURE INFORMATION: Exam: MR Abdomen Without Contrast, MRCP Exam date and time: 06/09/2020 6:07 PM Age: 80 years old Clinical indication: Other: Diarrhea; Additional info: Incompleted prior study, include all cbd TECHNIQUE: Imaging protocol: MR of the abdomen without contrast. Exam focused on the bile ducts and pancreatic ducts. 3D MRCP images were acquired and processed without radiologist supervision. COMPARISON: MR MRCP [id number] 06/09/2020 3:45 PM FINDINGS: Liver: No mass. Gallbladder and bile ducts: This MRCP study includes the entire distal common bile duct on the thin slice coronal images. The prior study did not include the entire common bile duct on these images. As previously stated the intrahepatic bile ducts are moderately dilated. The common bile duct is dilated measuring up to 17 mm. On series 5 images 52-55 there is a filling defect in the distal common bile duct measuring 6 mm. This is the series which did not completely include the common bile duct on the prior scan. This same filling defect is seen on series 10, image 10. This is consistent with a choledochal calculus in the most distal common bile duct. Is Status post cholecystectomy. Pancreas: Unremarkable. Mildly dilated, 4 mm, pancreatic duct in the head of the pancreas. The remainder of the duct is not dilated. Intraperitoneal space: No fluid collection. MR/MR MRCP [id number] IMPRESSION: Status post cholecystectomy. Dilated bile ducts with 6 mm filling defect in the most distal common bile duct consistent with a choledochal calculus. This portion of the duct was not included on the prior images.
--- NOTE | 2020-06-09 18:08 | PC.NURSE ---
Per Dr Elliott, pt is to go back to MRI prior to admit to the floor.
[2020-06-09 19:55] LABS: Hepatitis A Antibody IgM Non-Reactive (Nonreactive)
[2020-06-09 20:21] LABS: Glucose Point of Care 158 mg/dL (70-110)
[2020-06-09] MEDS: lactated ringers 1,000 ML 100 ML IV (22:07)
[2020-06-09] MEDS: ciprofloxacin 400 MG/200 ML PREMIX 200 MG IV (22:07)
[2020-06-09] MEDS: pantoprazole 40 mg SDV IVP (22:09)
[2020-06-09] MEDS: enoxaparin 40 mg/0.4 mL Syringe SUBCUT (22:12)
[2020-06-09] MEDS: metoprolol tartrate 25 mg Tablet PO (22:26)
[2020-06-09 22:29] LABS: Troponin 5 6HR 24.32 ng/L (0-10)
[2020-06-09 22:30] LABS: Troponin 5 6HR Delta -0.68 ng/L (0-12)
[2020-06-10] VITALS (14 sets, daily range): BP systolic 82–122; BP diastolic 36–78; PULSE 68–151; RESP 16–25; TEMP 35.9–37.5; O2SAT 92–98
[2020-06-10] MEDS: metroNIDAZOLE IV 500 MG/100 ML PREMIX 100 MG IV ×3 (00:13→16:37)
[2020-06-10 04:27] LABS: Basophils # 0.1 10^3/uL (0.0-0.1); Basophils % 0.7 %; Eosinophils % 0.1 %; Hematocrit 37.8 % (37.0-47.0); Hemoglobin 12.2 g/dL (11.5-15.3); Lymphocytes # 0.4 10^3/uL (0.8-4.8); Lymphocytes % 2.2 %; Mean Corpuscular HGB Conc 32.3 g/dL (30.0-36.0); Mean Corpuscular Hemoglobin 28.8 pg (28.0-34.0); Mean Corpuscular Volume 89.2 fL (81-99); Mean Platelet Volume 10.4 fL (7.4-10.4); Monocytes # 0.6 10^3/uL (0.2-0.9); Monocytes % 3.6 %; Neutrophils # 15.84 10^3/uL (1.8-7.7); Nucleated Red Blood Cells % 0 %; Platelet Count 224 10^3/cmm (130-400); Red Blood Count 4.24 10^6/uL (4.1-5.3); Red Cell Distribution Width 12.8 % (12.1-15.1)
[2020-06-10 04:41] LABS: INR 1.08 (0.8-1.2)
[2020-06-10 04:48] LABS: Lactic Sepsis W/Reflex 1.6 mmol/L (0.5-2.2)
[2020-06-10 04:57] LABS: Alanine Aminotransferase 98 U/L (0-33); Albumin Level 2.8 g/dL (3.5-5.2); Alkaline Phosphatase 339 IU/L (35-105); Amylase 8 U/L (28-100); Anion Gap 14.8 (5-19); Aspartate Amino Transferase 36 U/L (0-32); Blood Urea Nitrogen 36 mg/dL (8-23); C Reactive Protein 164.8 mg/L (0.0-4.9); Calcium 8.1 mg/dL (8.5-10.5); Carbon Dioxide 24 mmol/L (22-29); Chloride 101 mmol/L (98-107); Creatinine Clr Calc Pharmacy 39.0346; Globulin 1.7 g/dL (1.3-4.6); Glucose 159 mg/dL (65-115); Lipase 5 U/L (13-60); Magnesium 1.5 mg/dL (1.7-2.3); Osmolality Calculated 294 mOsm/kg (285-295); Phosphorus 3.9 mg/dL (2.5-4.5); Potassium 3.8 mmol/L (3.5-5.1); Sodium 136 mmol/L (136-145); Thyroid Stimulating Hormone 0.78 uIU/mL (0.27-4.20); Total Bilirubin 0.5 mg/dL (0.15-1.2); Total Protein 4.5 g/dL (6.6-8.7)
[2020-06-10 05:20] LABS: Procalcitonin 0.28 ng/mL (0-0.5)
[2020-06-10 05:30] LABS: Gamma Glutamyl Transferase 156 U/L (5-36)
[2020-06-10 06:28] LABS: Glucose Point of Care 117 mg/dL (70-110)
[2020-06-10] MEDS: ciprofloxacin 400 MG/200 ML PREMIX 200 MG IV ×2 (08:27→21:52)
[2020-06-10] MEDS: levothyroxine 100 mcg Tablet PO (08:28)
[2020-06-10] MEDS: pantoprazole 40 mg SDV IVP ×2 (08:28→21:52)
[2020-06-10] MEDS: lactated ringers 1,000 ML 100 ML IV ×3 (08:32→23:25)
[2020-06-10 09:17] LABS: Carcinoembryonic Antigen 2.3 ng/mL (0.0-4.7)
[2020-06-10 10:55] LABS: Glucose Point of Care 177 mg/dL (70-110)
--- NOTE | 2020-06-10 11:03 | ECG_ITS ---
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: : 1940 Requested By: Miguel Elliott Order Number: [id number] Reading MD: GUANACO FERNANDEZ Measurements Intervals [place] Rate: 115 P: [place]: QRS: -19 QRSD: 93 T: 2 QT: 302 QTc: 419 Interpretive Statements ATRIAL FIBRILLATION WITH RAPID VENTRICULAR RESPONSE INFERIOR MYOCARDIAL INFARCTION [40+ ms Q WAVE AND/OR ST/T ABNORMALITY IN II/aVF], PROBABLY OLD Compared to ECG 06/09/2020 16:31:14 Myocardial infarct finding now present Sinus rhythm no longer present ST (T wave) deviation no longer present Electronically Signed On 06-10-2020 18:02:40 SENIOR BEHAVIORAL SCIENTIST by GUANACO FERNANDEZ [id number]
[2020-06-10] MEDS: enoxaparin 60 mg/0.6 mL Syringe SUBCUT (12:15)
[2020-06-10] MEDS: dilTIAZem 60 mg Tablet PO ×3 (12:15→23:24)
--- NOTE | 2020-06-10 13:30 | PM.PN ---
Subjective Subjective: Interval history: This morning patient was examined, she had 3 episodes of watery bowel movements overnight, she tested positive for C. difficile, her abdominal pain has improved, she has a distal common bile duct choledochal colliculi, no fevers overnight, no nausea, vomiting, but she does have complaints of shortness of breath and chest palpitations this morning, she was found to be in A. fib with RVR, she was given 20 mg of IV push Cardizem, heart rate came down to the low 120s, given 60 mg of p.o. Cardizem, but continues to have heart rates in the sustained 140s to 150s, transfer down to cardiac stepdown unit for Cardizem drip Vitals/I&O/Wt Last Vital Signs Temp 99.5 F 06/10/20 13:06 Pulse 144 H 06/10/20 13:06 Resp 18 06/10/20 13:06 BP 96/50 06/10/20 13:06 Pulse Ox 92 06/10/20 13:06 06/09/20 06/10/20 06/10/20 22:59 06:59 14:59 Intake Total 300 / 350 1750 / 1750 Output Total 50 / 50 Balance 250 / 300 1750 / 1750 Weight last 48 hrs Weight 62.596 kg Physical Exam Const: COMMON NORMALS: no acute distress and patient oriented x3 HENMT: COMMON NORMALS: normocephalic HEAD & SCALP: normocephalic Neck/C-Spine: COMMON NORMALS: no JVD Resp: COMMON NORMALS: normal respiratory effort, No retractions, No use of accessory muscles and clear to auscultation bilaterally AUSCULTATION: clear to auscultation bilaterally Cardio: COMMON NORMALS: no JVD, S1 normal heart sound present and S2 normal heart sound present RATE: tachycardic RHYTHM: abnormal rhythm irregularly irregular HEART SOUNDS: S1 normal heart sound present and S2 normal heart sound present GI: COMMON NORMALS: Normal to inspection, nondistended, normoactive bowel sounds present, no masses and no bruits PALPATION: Yes Tenderness to palpation present (GI) Details: LLQ, RLQ, LUQ and RUQ Extremity: COMMON NORMALS: capillary refill normal, no clubbing, cyanosis or edema, no calf tenderness and no pedal edema Neuro: COMMON NORMALS: patient oriented x3 Psych: COMMON NORMALS: mental status grossly normal Data : 06/10/20 04:15 06/10/20 04:15 Micro: Microbiology 06/10/20 03:20 Stool Lactoferrin - Final Stool Enteric Pathogens (PCR) - Final Parasite Antigen Panel - Final Occult Blood (FIT) - Final 06/10/20 03:20 C.difficile Toxin B Gene (PCR) - Final Stool Routine Collection 06/09/20 15:02 Blood Culture - Preliminary Blood SPECIMEN COLLECTED 06/09/20 14:53 Blood Culture - Preliminary Blood SPECIMEN COLLECTED A&P Assessment and plan (1) Abdominal pain: -Diffuse abdominal pain, with diarrhea -Multifactorial likely secondary to C. difficile colitis ascending cholangitis -White blood cell count 17, neutrophilic 15.84 -Creatinine 1.1 -AST 36, ALT 98, GGT 156, alk phos 339, CRP 164, amylase 8, lipase 5, pro-Gentry 0.28 -CA 79.7 -Lactic acid 1.6 -Ct scan of the abdomen and pelvis showed: Mild diffuse circumferential thickening of the antrum and proximal duodenum is probably due to gastritis and duodenitis. No obstruction. - Marked intrahepatic and extrahepatic duct dilatation. Common bile duct measures up to 11 mm at the pancreatic head. Duct dilatation may all be physiologic and related to the prior cholecystectomy. -us abdomen showed: Moderate intrahepatic and extrahepatic common bile duct dilatation. May be physiologic on the basis of cholecystectomy and aging. -MRCP showed: Limitations: This is primarily an MRCP study with limited MRI noncontrast images. The main MRI series 4 fails to completely include the common bile duct. Liver: The liver is normal within the limits of noncontrast scan. Gallbladder and bile ducts: Status post cholecystectomy. There is moderate dilation of intrahepatic and extrahepatic bile ducts. MRCP demonstrates the common bile duct to measure up to 17 mm in diameter. No filling defect is identified to indicate choledochal calculus. No obstructive lesion is identified within the limits of a noncontrast scan. Pancreas: The pancreas is normal within the limits of a noncontrast scan. Pancreatic duct in the head of the pancreas is mildly dilated, 4 mm. It is normal in caliber throughout the remainder of the pancreas. -MRCP repeated showed:Status post cholecystectomy. Dilated bile ducts with 6 mm filling defect in the most distal common bile duct consistent with a choledochal calculus. This portion of the duct was not included on the prior images. -Patient's alk phos, AST ALT, inflammatory markers improving, she is clinically improving -At this point she might of passed the stone, as inflammatory markers are improving PLAN: -LR at 100 cc an hour -Broad-spectrum antibiotics ciprofloxacin and Flagyl -Serial abdominal exams -Monitor for fevers -Clear liquids for now -P.o. vancomycin for C. difficile colitis -I have called [facility] for transfer, awaiting for callback -Full code -Lovenox for DVT prophylaxis Status: Acute (2) Hypothyroid: Status: Acute (3) Essential hypertension, benign: Continue metoprolol, hold lisinopril, hold chlorthalidone Status: Acute (4) Diabetes mellitus, type II: N.p.o., low-dose sliding scale Status: Acute (5) Vitamin D deficiency: Status: Acute (6) Hyperlipidemia associated with type 2 diabetes mellitus: Status: Acute (7) Hypertension: Status: Chronic Qualifiers: Hypertension type: essential hypertension Qualified Code(s): I10 - Essential (primary) hypertension (8) EVGENY (acute kidney injury): Creatinine 1.3, baseline 1-1.1, continue IV hydration with LR Status: Acute (9) Atrial fibrillation with RVR: -Not improving with IV or p.o. Cardizem -Started on Cardizem drip -Therapeutic Lovenox -Cardiac echocardiogram ordered Status: Acute (10) C. difficile colitis: Status: Acute (11) Common bile duct stone: Status: Acute (12) Ascending cholangitis: Status: Acute Attestations Medical Necessity Statement*: Patient cards hospitalization for abdominal pain secondary to distal common bile duct colliculi, C. difficile colitis, A. fib Coding Level of Care Code Acute Poker In for Chg Fwd Diagnoses Abdominal pain R10.9 Hypothyroid E03.9 Essential hypertension, benign I10 Diabetes mellitus, type II E11.9 Vitamin D deficiency E55.9 Hyperlipidemia associated with type 2 diabetes mellitus E11.69; E78.5 Hypertension I10 Hypertension type: essential hypertension EVGENY (acute kidney injury) N17.9 Atrial fibrillation with RVR I48.91 C. difficile colitis A04.72 Common bile duct stone K80.50 Ascending cholangitis K83.09
[2020-06-10] MEDS: magnesium sulfate premix 2 GM/50 ML PIGGYBACK IV (14:18)
[2020-06-10] MEDS: sodium chloride 0.9% 1,000 ML 999 ML IV (14:35)
[2020-06-10] MEDS: potassium chloride oral liq 20 mEq/15 mL UDC 40 MEQ PO (15:24)
[2020-06-10 16:41] LABS: Lactate (Lactic Acid level) 3.1 mmol/L (0.5-2.2)
[2020-06-10 16:42] LABS: Alanine Aminotransferase 75 U/L (0-33); Albumin Level 2.7 g/dL (3.5-5.2); Alkaline Phosphatase 290 IU/L (35-105); Aspartate Amino Transferase 23 U/L (0-32); Blood Urea Nitrogen 40 mg/dL (8-23); Calcium 8.2 mg/dL (8.5-10.5); Carbon Dioxide 20 mmol/L (22-29); Chloride 99 mmol/L (98-107); Creatinine Clr Calc Pharmacy 39.0346; Globulin 1.7 g/dL (1.3-4.6); Glucose 220 mg/dL (65-115); Lipase 5 U/L (13-60); Osmolality Calculated 291 mOsm/kg (285-295); Sodium 132 mmol/L (136-145); Total Bilirubin 0.5 mg/dL (0.15-1.2); Total Protein 4.4 g/dL (6.6-8.7)
[2020-06-10 17:36] LABS: Glucose Point of Care 191 mg/dL (70-110)
--- NOTE | 2020-06-10 19:38 | PC.NURSE ---
MED/SURG TRANSFER Received pt from [facility] via wheelchair. Pt looked weak, pale. Pt is alert and oriented. Noted strong foul diarrhea. Noted bleeding and small skin tears and swelling bruise on her right toes. Pt stated her foot got bump in the door. 3 person assist transfer from wheelchair to bed. Sasha-cares provided for loose stools. Decrease BP noted in 86/52, hr-156. Trendelenburg position the bed. Instructed pt on vagal maneuvers-instructed pt to push down like having a hard BM. HR-decrease to 90s-110s, BP is still low in 87/59. Dr. Elliott called and discuss the condition. Received verbal orders to give 1 L NS bolus now, held the ordered Cardizem drip. Will keep monitoring.
--- NOTE | 2020-06-10 20:12 | PC.NURSE ---
Received report from JOSE Shore. Patient resting in bed. Discussed planned transfer to [facility]. Patient verbalized complete understanding. Patient c/o of really bad acid reflux. Informed patient will check med orders and will inform the doctor if nothing is ordered. Denies other needs. No other distress observed.
[2020-06-10 20:37] LABS: Glucose Point of Care 130 mg/dL (70-110)
[2020-06-10] MEDS: ondansetron 2 mg/ML SDV 2 mL 4 MG IVP (23:29)
--- NOTE | 2020-06-11 00:26 | PC.NURSE ---
Patient taken to [facility] via ground ambulance. Patient reports feeling some better after receiving dose of Zofran for upset stomach. Belongings sent with patient.
[2020-06-11 00:29] VITALS: BP 104/53; PULSE 96; RESP 25; TEMP 37.2; O2SAT 97
--- NOTE | 2020-06-11 14:22 | PM.TDS ---
Transfer Summary Providers Date of Admission: 06/09/20 17:27 Date of Discharge: 06/11/20 Attending Provider at Admission: Miguel Elliott MD Attending Provider at Transfer: Miguel Elliott MD Primary Care Provider: AMY Cordova Anticipated Date of Transfer: Anticipated date of transfer: 06/11/20 Receiving Facility & Provider: Receiving Provider: [] Receiving facility: [] Diagnoses at Discharge Discharge Diagnosis (1) Abdominal pain: Status: Acute (2) Hypothyroid: Status: Acute (3) Essential hypertension, benign: Status: Acute (4) Diabetes mellitus, type II: Status: Acute (5) Vitamin D deficiency: Status: Acute Permanent problem details: Patient has history of Vitamin D deficiency. (6) Hyperlipidemia associated with type 2 diabetes mellitus: Status: Acute Permanent problem details: Patient is diabetic, and history of hyperlipidemia. (7) Hypertension: Status: Chronic Permanent problem details: Patient has been controlled with oral blood pressure medications. Qualifiers: Hypertension type: essential hypertension Qualified Code(s): I10 - Essential (primary) hypertension (8) EVGENY (acute kidney injury): Status: Acute (9) Atrial fibrillation with RVR: Status: Acute (10) C. difficile colitis: Status: Acute (11) Common bile duct stone: Status: Acute (12) Ascending cholangitis: Status: Acute Reason for Visit Reason for Visit: GENERALIZED WEAKNESS/ DIARRHEA Hospital Course Hospital Course Kaur Garland is a 80 year old female with a past medical history of insulin-dependent type 2 diabetes mellitus, history of brain tumor status post surgical resection, cricopharyngeal achalasia, vocal cord paralysis, diabetic peripheral neuropathy, hypertension, GERD, hyperlipidemia, hypertension, hypothyroidism, status post appendectomy, status post cholecystectomy, status post gastric bypass who presents to [facility] due to complaints of diarrhea and diffuse abdominal pain. Patient was admitted to [facility] for diffuse abdominal pain and diarrhea multifactorial secondary to C. difficile colitis and concerns for acute ascending cholangitis For C. difficile colitis, C. difficile was positive, started on p.o. vancomycin For acute ascending cholangitis, had transaminitis, elevated alk phos, elevated inflammatory markers, white blood cell count was 24,000, MRCP showed 6 mm filling defect in the most distal common bile duct consistent with choledochal calculi. She received broad-spectrum antibiotic therapy, fluid therapy, pain control. Patient's leukocytosis, transaminitis and alk phos and inflammatory markers improved, but continued to have generalized abdominal pain, after discussion with physicians at [facility], patient was transferred to [facility] for ERCP procedure. Patient also developed episodes of A. fib with RVR during hospitalization, improved with Cardizem drip, transition to p.o. Cardizem and Lovenox therapy. Abdominal pain: -Diffuse abdominal pain, with diarrhea -Multifactorial likely secondary to C. difficile colitis ascending cholangitis -White blood cell count 17, neutrophilic 15.84 -Creatinine 1.1 -AST 36, ALT 98, GGT 156, alk phos 339, CRP 164, amylase 8, lipase 5, pro-Gentry 0.28 -CA 79.7 -Lactic acid 1.6 -Ct scan of the abdomen and pelvis showed: Mild diffuse circumferential thickening of the antrum and proximal duodenum is probably due to gastritis and duodenitis. No obstruction. - Marked intrahepatic and extrahepatic duct dilatation. Common bile duct measures up to 11 mm at the pancreatic head. Duct dilatation may all be physiologic and related to the prior cholecystectomy. -us abdomen showed: Moderate intrahepatic and extrahepatic common bile duct dilatation. May be physiologic on the basis of cholecystectomy and aging. -MRCP showed: Limitations: This is primarily an MRCP study with limited MRI noncontrast images. The main MRI series 4 fails to completely include the common bile duct. Liver: The liver is normal within the limits of noncontrast scan. Gallbladder and bile ducts: Status post cholecystectomy. There is moderate dilation of intrahepatic and extrahepatic bile ducts. MRCP demonstrates the common bile duct to measure up to 17 mm in diameter. No filling defect is identified to indicate choledochal calculus. No obstructive lesion is identified within the limits of a noncontrast scan. Pancreas: The pancreas is normal within the limits of a noncontrast scan. Pancreatic duct in the head of the pancreas is mildly dilated, 4 mm. It is normal in caliber throughout the remainder of the pancreas. -MRCP repeated showed:Status post cholecystectomy. Dilated bile ducts with 6 mm filling defect in the most distal common bile duct consistent with a choledochal calculus. This portion of the duct was not included on the prior images. -Patient's alk phos, AST ALT, inflammatory markers improving, she is clinically improving -At this point she might of passed the stone, as inflammatory markers are improving PLAN: -LR at 100 cc an hour -Broad-spectrum antibiotics ciprofloxacin and Flagyl -Serial abdominal exams -Monitor for fevers -Clear liquids for now -P.o. vancomycin for C. difficile colitis -I have called [facility] for transfer, awaiting for callback -Full code -Lovenox for DVT prophylaxis Status: Acute (2) Hypothyroid: Status: Acute (3) Essential hypertension, benign: Continue metoprolol, hold lisinopril, hold chlorthalidone Status: Acute (4) Diabetes mellitus, type II: N.p.o., low-dose sliding scale Status: Acute (5) Vitamin D deficiency: Status: Acute (6) Hyperlipidemia associated with type 2 diabetes mellitus: Status: Acute (7) Hypertension: Status: Chronic Qualifiers: Hypertension type: essential hypertension Qualified Code(s): I10 - Essential (primary) hypertension (8) EVGENY (acute kidney injury): Creatinine 1.3, baseline 1-1.1, continue IV hydration with LR Status: Acute (9) Atrial fibrillation with RVR: -Not improving with IV or p.o. Cardizem -Started on Cardizem drip -Therapeutic Lovenox -Cardiac echocardiogram ordered Status: Acute (10) C. difficile colitis: Status: Acute (11) Common bile duct stone: Status: Acute (12) Ascending cholangitis: Status: Acute Physical Exam Const: COMMON NORMALS: no acute distress and patient oriented x3 HENMT: COMMON NORMALS: normocephalic HEAD & SCALP: normocephalic Neck/C-Spine: COMMON NORMALS: no JVD Resp: COMMON NORMALS: normal respiratory effort, No retractions, No use of accessory muscles and clear to auscultation bilaterally AUSCULTATION: clear to auscultation bilaterally Cardio: COMMON NORMALS: no JVD, regular rate, S1 normal heart sound present and S2 normal heart sound present RATE: regular rate RHYTHM: abnormal rhythm HEART SOUNDS: S1 normal heart sound present and S2 normal heart sound present GI: COMMON NORMALS: Normal to inspection, nondistended, normoactive bowel sounds present, Soft to palpation, No hepatosplenomegaly present, no masses and no bruits PALPATION: Yes Soft to palpation, Yes Tenderness to palpation present (GI) Details: LLQ, RLQ, LUQ and RUQ and Yes No hepatosplenomegaly present Extremity: COMMON NORMALS: capillary refill normal, no clubbing, cyanosis or edema, no calf tenderness and no pedal edema Neuro: COMMON NORMALS: patient oriented x3 Psych: COMMON NORMALS: mental status grossly normal TS Data Data Completed and Pending: Completed Studies During Hospitalization Category Date Time Status CT abdomen pelvis w con* [id number] Stat Cat Scan 06/09/20 12:35 Completed XR chest 1V yenifer ble [id number] Stat Exams 06/09/20 12:35 Completed MR MRCP [id number] Sta t MRI 06/09/20 14:42 Completed MR MRCP [id number] Urg ent MRI 06/09/20 18:07 Completed US abdomen comple te* [id number] Stat Ultrasound 06/09/20 14:03 Completed Pending at discharge Category Date Time Status Blood Culture Sta t Lab 06/09/20 15:02 Results Labs from last 24 hours 06/10/20 06/10/20 06/10/20 20:23 17:23 16:02 Sodium Potassium Chloride Carbon Dioxide Anion Gap BUN Creatinine GFR Calculation Glucose POC Glucose 130 191 Calculated Osmolal ity Lactate 3.1 H Calcium Total Bilirubin Direct Bilirubin Indirect Bilirubin AST ALT Alkaline Phosphata se Total Protein Albumin Globulin Lipase 06/10/20 16:02 Sodium 132 L Potassium 4.0 Chloride 99 Carbon Dioxide 20 L Anion Gap 17.0 BUN 40 H Creatinine 1.1 H GFR Calculation Not Reportable Glucose 220 H POC Glucose Calculated Osmolal ity 291 Lactate Calcium 8.2 L Total Bilirubin 0.5 Direct Bilirubin 0.30 Indirect Bilirubin 0.20 AST 23 ALT 75 H Alkaline Phosphata se 290 H Total Protein 4.4 L Albumin 2.7 L Globulin 1.7 Lipase 5 L Vitals: Last Vital Signs Temp 99.0 F 06/11/20 00:29 Pulse 96 06/11/20 00:29 Resp 25 H 06/11/20 00:29 BP 104/53 06/11/20 00:29 Pulse Ox 97 06/11/20 00:29 TS Medications Medications Home Medications insulin aspart U-100 100 unit/mL (3 mL) subcutaneous pen 6 unit SUBCUT BID 08/02/19 [History Confirmed 06/09/20] potassium chloride 10 mEq tablet,extended release(part/cryst) 10 meq PO DAILY tab 08/02/19 [History Confirmed 06/09/20] chlorthalidone 25 mg tablet 25 mg PO DAILY 90 Days #90 tab 11/17/19 [Rx Confirmed 06/09/20] ergocalciferol (vitamin D2) 1,250 mcg (50,000 unit) capsule 50,000 unit PO .weekly #12 cap 11/17/19 [Rx Confirmed 06/09/20] lisinopril 40 mg tablet 40 mg PO DAILY 90 Days #90 tab 11/17/19 [Rx Confirmed 06/09/20] meloxicam 15 mg tablet 15 mg PO DAILY #90 tab 11/17/19 [Rx Confirmed 06/09/20] metoprolol tartrate 25 mg tablet 25 mg PO BID 90 Days #180 tab 11/17/19 [Rx Confirmed 06/09/20] omeprazole 40 mg capsule,delayed release 40 mg PO DAILY #90 cap 11/17/19 [Rx Confirmed 06/09/20] prednisolone acetate 1 % eye drops,suspension 1 drop OPHTHALMIC (EYE) BID #10 ml 11/17/19 [Rx Confirmed 06/09/20] ondansetron 8 mg disintegrating tablet 8 mg PO TID 90 Days #270 tab 02/10/20 [Rx Confirmed 06/09/20] albuterol sulfate 2 puff INHALATION PRN 02/14/20 [History Confirmed 06/09/20] fluticasone propionate 50 mcg/actuation nasal spray,suspension 1 spray INTRANASAL DAILY PRN #15.8 ml 05/02/20 [Rx Confirmed 06/09/20] ciprofloxacin HCl 250 mg tablet See Rx Instructions .ROUTE .COMPLEX #6 tab 06/07/20 [Rx Confirmed 06/09/20] Synthroid 100 mcg PO DAILY 06/09/20 [History Confirmed 06/09/20] insulin glargine [Basaglar KwikPen U-100 Insulin] 10 unit SUBCUT DAILY 06/09/20 [History Confirmed 06/09/20] Discharge Plan Discharge Patient Disposition: Xfer Short-Term Hosp Prescriptions: No Action potassium chloride 10 mEq tablet,ER particles/crystals 10 meq PO DAILY RF: 0 insulin aspart U-100 [Novolog Flexpen U-100 Insulin] 100 unit/mL (3 mL) insulin pen 6 unit SUBCUT BID RF: 0 chlorthalidone 25 mg tablet 25 mg PO DAILY 90 Days Qty: 90 RF: 3 ergocalciferol (vitamin D2) 1,250 mcg (50,000 unit) capsule 50,000 unit PO .weekly Qty: 12 RF: 1 lisinopril 40 mg tablet 40 mg PO DAILY 90 Days Qty: 90 RF: 1 meloxicam 15 mg tablet 15 mg PO DAILY Qty: 90 RF: 1 metoprolol tartrate 25 mg tablet 25 mg PO BID 90 Days Qty: 180 RF: 1 omeprazole 40 mg capsule,delayed release(DR/EC) 40 mg PO DAILY Qty: 90 RF: 1 prednisolone acetate 1 % drops,suspension 1 drop ophthalmic (eye) BID Qty: 10 RF: 1 ondansetron 8 mg tablet,disintegrating 8 mg PO TID 90 Days Qty: 270 RF: 0 fluticasone propionate 50 mcg/actuation spray,suspension 1 spray INTRANASAL DAILY PRN (Reason: Allergy Symptoms) Qty: 15.8 RF: 3 ciprofloxacin HCl 250 mg tablet See Rx Instructions .ROUTE .COMPLEX Qty: 6 RF: 0 albuterol sulfate 90 mcg/actuation HFA aerosol inhaler 2 puff INHALATION PRN RF: 0 Basaglar KwikPen U-100 Insulin 100 unit/mL (3 mL) insulin pen 10 unit SUBCUT DAILY RF: 0 Synthroid 100 mcg tablet 100 mcg PO DAILY RF: 0 Discharge Orders: Discharge Order (Routine); Ordered 06/11/20 Ordered By: Miguel Elliott Referrals: GERALDO Johnson, ELECTROMAGNET CRANE OPERATOR [Primary Care Provider] - Transfer Attestations Time Spent in Transfer Care*: greater than 30 min Quality Metrics Clinical Quality Measures: During this hospital stay, did patient experience: None Coding Level of Care Code Acute Park Maintainer for g Fwd Diagnoses Abdominal pain R10.9 Hypothyroid E03.9 Essential hypertension, benign I10 Diabetes mellitus, type II E11.9 Vitamin D deficiency E55.9 Hyperlipidemia associated with type 2 diabetes mellitus E11.69; E78.5 Hypertension I10 Hypertension type: essential hypertension EVGENY (acute kidney injury) N17.9 Atrial fibrillation with RVR I48.91 C. difficile colitis A04.72 Common bile duct stone K80.50 Ascending cholangitis K83.09
== END 2020-06-11 00:05 | disposition short-term general hospital (02) | DRG 445 ==
LOC: ER 12:20 → MEDSURG 18:24 → CSU 06-10 13:36
PROVIDERS: Admitting Provider Family Medicine; Emergency Provider Family Medicine; PCP Nurse Practitioner Family; Visit Provider Family Medicine
DX: K80.50 Calculus of bile duct without cholangitis or cholecystitis without obstruction (principal); A04.72 Enterocolitis due to Clostridium difficile, not specified as recurrent; K83.09 Other cholangitis; N17.9 Acute kidney failure, unspecified; I48.91 Unspecified atrial fibrillation; E03.9 Hypothyroidism, unspecified; E55.9 Vitamin D deficiency, unspecified; E78.5 Hyperlipidemia, unspecified; I10 Essential (primary) hypertension; K21.9 Gastro-esophageal reflux disease without esophagitis; E11.42 Type 2 diabetes mellitus with diabetic polyneuropathy; Z98.84 Bariatric surgery status; Z79.4 Long term (current) use of insulin; Z87.891 Personal history of nicotine dependence
CPT/HCPCS: 12345; 36415; 36416; 71045; 74177; 74181; 76700; 80053; 80074; 81003; 82150; 82247; 82248; 82274; 82378; 82962; 82977; 83605; 83630; 83690; 83735; 84100; 84145; 84443; 84484; 85025; 85610; 85730; 86140; 86301; 87040; 87426; 87493; 87506; 93005; 94664; 96372; 96375; 99282; C9113; J0696; J0744; J1170; J1650; J1815; J2270; J2405; J3370; J3475; J3490; J7030; Q9967; S0030

== ENCOUNTER 2020-07-03 08:34 | Inpatient (IN) | payer MEDICARE, OTHER, SELFPAY ==
[2020-07-03] VITALS (11 sets, daily range): BP systolic 103–171; BP diastolic 67–115; PULSE 82–119; RESP 16–20; TEMP 36.4–37; O2SAT 87–99
--- NOTE | 2020-07-03 09:09 | XR_ITS ---
WS: [id number] PORTABLE CHEST HISTORY: dyspnea/cough COMPARISON: 06/09/2020 Subsegmental atelectasis at the LEFT lung base. Minimal blunting of the costophrenic angles. No pulmo nary venous congestion. Cardiac size: Normal. Mediastinum/Aorta: Mild atherosclerosis aorta. Prior rotator cuff repair on the RIGHT. Numerous clips are noted bilaterally the upper abdomen. Prior gastric bypass history. XR/XR chest 1V portable [id number] IMPRESSION: 1. Very small bilateral pleural effusions versus pleural thickening. 2. LEFT basilar subsegmental atelectasis.
--- NOTE | 2020-07-03 09:09 | CT_ITS ---
WS: [id number] CT HEAD NONCONTRAST HISTORY: AMS/hx brain tumor TECHNIQUE: Contiguous axial imaging performed through the brain in 2.5 mm imaging. Bone and soft tiss ue windows. Sagittal and coronal reformats reviewed. All CT scans at [facility] use at le ast one of these dose optimization techniques: automated exposure control; mA and/or kV adjustment pe r patient size (includes targeted exams where dose is matched to clinical indication); or iterative r econstruction. DLP: 859.07 mGy.cm COMPARISON: 10/13/2018 No acute intracranial hemorrhage, midline shift or mass effect. Postoperative resection cavity involving the inferior LEFT temporoparietal region. Evidence for crani ectomy volume loss and grafting at the craniectomy site. Adjacent to the posterior resection site is a 13 x 17 mm nodule of increased density. This area is partially obscured by motion and artifact on t he prior study. Recurrent tumor is not excluded. Ventricles: Normal size with no hydrocephalus. Paranasal sinuses: As visualized are clear. Mastoid air cells: Resection of coalescence of the LEFT mastoid air cells. There are lytic changes ex tending into the skull base and foramen magnum. These findings were described on the prior study and thought to be related to the prior surgery. Calvarium and scalp: Lytic changes in the region of the LEFT mastoid air cells similar to the prior s tudy. May be related to the prior surgery. Very similar in appearance to the prior study from 9. CT/CT head wo con* [id number] IMPRESSION: 1. No acute intracranial hemorrhage or edema. 2. Large resection cavity in the LEFT temporoparietal region is again evident. 3. Prominent soft tissue at the resection site of increased density measures 1 3 x 17 mm. Cannot exclude recurrent tumor. May have been present on the prior s tudy but this area was not as well seen as today because of artifact from the s urgical site. Notified Terrell Casanova DO at 07/03/2020 9:39 AM.
--- NOTE | 2020-07-03 09:09 | ECG_ITS ---
[facility] Test Date: 2020-07-03 Pat Name: Kaur Garland Department: Room: Gender: Female Straddle Bug Operator: : 1940 Requested By: Terrell Farmer Order Number: [id number] Feli MD: Emeli Huggins M.D. Measurements Intervals [place] Rate: 106 P: 47 CO: 146 QRS: -42 QRSD: 89 T: 67 QT: 312 QTc: 416 Interpretive Statements SINUS TACHYCARDIA WITH OCCASIONAL SUPRAVENTRICULAR PREMATURE COMPLEXES LEFT AXIS DEVIATION [QRS AXIS < -30] Compared to ECG 06/10/2020 11:22:04 Left-axis deviation now present Atrial fibrillation no longer present Myocardial infarct finding no longer present Electronically Signed On 07-03-2020 20:28:27 COMPUTER SYSTEMS SECURITY ANALYST by Emeli Huggnis M.D. [id number]
--- NOTE | 2020-07-03 09:10 | W.ED.AMS ---
Documented by User: Terrell Casanova 07/03/20 13:05 HPI - Altered Mental Status History of Present Illness: HPI narrative: 80-year-old female presents emergency room with complaint of altered mental status not breathing well. Daughter is at the bedside states she was her normal self 4 days ago at the alf. She has a PEG tube and she not been swallowing well also she had only been feet being fed by the PEG tube they try to give her some p.o. at the alf evidently and she deteriorated the daughter is worried she has had a stroke she is mildly hypoxic requiring oxygen support she is no longer vocalizing. She had been 4 days ago when she seemed to be at her normal baseline according to the daughter. She has a history of brain CA which is previously resected and then followed up with radiation therapy. Recently the patient in the emergency room here there is concern about an obstructed common bile duct she was transferred to [facility] because of a previous bariatric surgery they did not do an ERCP in light of the stone to pass on its own which eventually did. They found that she was not eating and drinking well and were concerned about aspiration in the when the PEG tube was placed. Patient is a DNI which is confirmed with the family on arrival here in the emergency room. She is requiring a nonrebreather at 15 L/min to maintain sats in the low 90s. They confirm the do not want her intubated on a ventilator. She has been tested both in [place] and at the alf for Covid and was negative. MD complaint: altered mental status Onset (ago): day(s) (4) Timing confirmed by: spouse Severity: severe Consistency of symptoms: Getting Worse Context: other (History of brain tumor with previous resection, aspiration) Treatments prior to arrival: oxygen Review of Systems Const: Denies: fever(s), chills, body aches, change in appetite, fatigue or malaise ENMT: Denies: throat pain, ear or mastoid pain, nasal discharge or nasal congestion Card: Denies: chest pain, edema, dyspnea on exertion or orthopnea Resp: Denies: dyspnea, productive cough or non-productive cough GI: Denies: abdominal pain, nausea, vomiting, hematemesis, coffee ground emesis, diarrhea, constipation, bloating, hematochezia or melena : Denies: flank pain, difficulty voiding, dysuria, urinary frequency or urinary urgency Skin/Breast: Denies: rash or pruritus PFSH ED PFSH: Medical History (Updated 07/03/20 @ 22:12 by Ricco Young MD) Brain tumor Cricopharyngeal achalasia Diabetes mellitus, type II Diabetic polyneuropathy Essential hypertension, benign GERD (gastroesophageal reflux disease) Hyperlipidemia associated with type 2 diabetes mellitus Hypertension Patient has been controlled with oral blood pressure medications. Hypothyroid Smell, impaired Taste absent Vitamin D deficiency Patient has history of Vitamin D deficiency. Surgical History (Updated 07/03/20 @ 22:11 by Ricco Young MD) H/O brain surgery Brain Tumor removed 2011 History of bladder surgery S/P appendectomy S/P arthroscopy of left shoulder S/P cataract surgery S/P cholecystectomy S/P gastric bypass S/P vaginal hysterectomy Status post corneal transplant Social History Smoking and tobacco status: former smoker Second hand smoke exposure: No Smoking risk assessment/counseling performed?: No Alcohol intake: never Desire information about alcohol rehabilitation?: No Counseling given: No Desire information about substance/drug rehabilitation?: No Counseling given: No Physical Exam Const: COMMON NORMALS: no acute distress GENERAL APPEARANCE: cooperative and comfortable HENMT: COMMON NORMALS: normocephalic, atraumatic and hearing grossly normal bilaterally HEAD & SCALP: normocephalic and atraumatic Resp: AUSCULTATION: rales, rhonchi, wheezes and diminished lung sounds Cardio: COMMON NORMALS: regular rhythm and No murmurs present (Cardio) RATE: tachycardic RHYTHM: regular rhythm GI: COMMON NORMALS: Soft to palpation and No hepatosplenomegaly present AUSCULTATION: Yes normoactive bowel sounds PALPATION: Yes Soft to palpation, No Tenderness to palpation present (GI), No Guarding due to palpation present (GI) and Yes No hepatosplenomegaly present Extremity: COMMON NORMALS: normal to inspection, capillary refill normal, no clubbing, cyanosis or edema, no calf tenderness and no pedal edema Skin: COMMON NORMALS: no rashes or lesions noted GENERAL SKIN EXAM: no rashes or lesions noted Course Vital Signs: Vital signs: Vital Signs Temperature 98.3 F 07/09/20 19:29 Pulse Rate 97 07/09/20 19:29 Respiratory Rate 16 07/09/20 19:29 Blood Pressure 155/81 07/09/20 19:29 Pulse Oximetry 92 07/09/20 19:29 MDM - Altered Mental Status Lab Data: Attestation: I reviewed the patient's lab results. Labs: Lab Results 07/03/20 07/03/20 07/03/20 Range/Units 08:45 08:45 08:45 WBC 8.6 (4.0-10.0) 10^3/ uL RBC 4.63 (4.1-5.3) 10^6/u L Hgb 13.0 (11.5-15.3) g/dL Hct 42.4 (37.0-47.0) % MCV 91.6 (81-99) fL MCH 28.1 (28.0-34.0) pg MCHC 30.7 (30.0-36.0) g/dL RDW 14.6 (12.1-15.1) % Plt Count 273 (130-400) 10^3/c mm MPV 11.9 H (7.4-10.4) fL Neut % (Auto) 73.7 % Lymph % (Auto) 13.2 % [place] % (Auto) 9.1 % Eos % (Auto) 2.8 % Baso % (Auto) 0.6 % Neut # (Auto) 6.35 (1.8-7.7) 10^3/u L Lymph # (Auto) 1.1 (0.8-4.8) 10^3/u L [place] # (Auto) 0.8 (0.2-0.9) 10^3/u L Eos # (Auto) 0.2 (0.0-0.8) 10^3/u L Baso # (Auto) 0.1 (0.0-0.1) 10^3/u L Nucleated RBC % (a uto) 0 % Nucleated RBCs # 0.0 /100WBC Specimen Type Sample Site ABG pH (7.35-7.45) ABG pCO2 (35-45) mmHg ABG pO2 (80.0-100.0) mmH g ABG HCO3 (22-26) mmol/L ABG O2 Saturation ABG Base Excess (-2.0-2.0) mmol/ L Salvatore Test A-a O2 Gradient (5-10) mmHg Hematocrit (37-47) % Hgb O2 Saturation (95-100) % Carboxyhemoglobin (0.4-20.1) %THgb Methemoglobin (0.4-1.5) % Total Hemoglobin (12-16) g/dL Ionized Calcium (1.1-1.4) mmol/L O2 Delivery Device O2 Liters/Min % Director Pharmacovigilance ID Sodium 131 L (136-145) mmol/L Potassium 4.8 (3.5-5.1) mmol/L Chloride 91 L (98-107) mmol/L Carbon Dioxide 31 H (22-29) mmol/L Anion Gap 13.8 (5-19) BUN 34 H (8-23) mg/dL Creatinine 0.6 (0.5-0.9) mg/dL GFR Calculation Not Reportable Glucose 356 H (65-115) mg/dL Calculated Osmolal ity 294 (285-295) mOsm/k g Lactic Acid (0.5-2.2) mmol/L Calcium 8.7 (8.5-10.5) mg/dL Total Bilirubin 0.5 (0.15-1.2) mg/dL AST 16 (0-32) U/L ALT 10 (0-33) U/L Alkaline Phosphata se 109 H (35-105) IU/L Creatine Kinase 13 L (26-192) U/L Troponin T Baselin e 22 H (0-10) ng/L Troponin T 120 Min [place] (0-10) ng/L Delta Troponin T (0-10) ABS# Total Protein 5.7 L (6.6-8.7) g/dL Albumin 3.5 (3.5-5.2) g/dL Globulin 2.2 (1.3-4.6) g/dL Lipase 17 (13-60) U/L Procalcitonin (0-0.5) ng/mL Urine Color (Yellow) Urine Appearance (CLEAR) Urine pH (5-7) Ur Specific Gravit y (1.005-1.030) Urine Protein (Negative) Urine Glucose (UA) (Normal) Urine Ketones (Negative) Urine Blood (Negative) Urine Nitrate (Negative) Urine Bilirubin (Negative) Urine Urobilinogen (Negative) mg/dL Ur Leukocyte Aisha ase (Negative) Urine RBC (0-2) /hpf Urine WBC (0-5) /hpf Ur Squamous Epith Cells (0-5) /hpf Amorphous Sediment Urine Bacteria (NONE) /hpf 07/03/20 07/03/20 07/03/20 Range/Units 08:45 09:30 10:08 WBC (4.0-10.0) 10^3/ uL RBC (4.1-5.3) 10^6/u L Hgb (11.5-15.3) g/dL Hct (37.0-47.0) % MCV (81-99) fL MCH (28.0-34.0) pg MCHC (30.0-36.0) g/dL RDW (12.1-15.1) % Plt Count (130-400) 10^3/c mm MPV (7.4-10.4) fL Neut % (Auto) % Lymph % (Auto) % [place] % (Auto) % Eos % (Auto) % Baso % (Auto) % Neut # (Auto) (1.8-7.7) 10^3/u L Lymph # (Auto) (0.8-4.8) 10^3/u L [place] # (Auto) (0.2-0.9) 10^3/u L Eos # (Auto) (0.0-0.8) 10^3/u L Baso # (Auto) (0.0-0.1) 10^3/u L Nucleated RBC % (a uto) % Nucleated RBCs # /100WBC Specimen Type Arterial Sample Site Radial, left ABG pH 7.45 (7.35-7.45) ABG pCO2 46.7 H (35-45) mmHg ABG pO2 81.4 (80.0-100.0) mmH g ABG HCO3 32.4 H (22-26) mmol/L ABG O2 Saturation 97.3 ABG Base Excess 7.3 H (-2.0-2.0) mmol/ L Salvatore Test Pos A-a O2 Gradient 1.4 L (5-10) mmHg Hematocrit 40.1 (37-47) % Hgb O2 Saturation 95.6 (95-100) % Carboxyhemoglobin 1.0 (0.4-20.1) %THgb Methemoglobin 0.7 (0.4-1.5) % Total Hemoglobin 13.1 (12-16) g/dL Ionized Calcium 1.2 (1.1-1.4) mmol/L O2 Delivery Device Nrb O2 Liters/Min 15.0 % Director Pharmacovigilance ID glc Sodium 130.0 L (136-145) mmol/L Potassium 4.3 (3.5-5.1) mmol/L Chloride (98-107) mmol/L Carbon Dioxide (22-29) mmol/L Anion Gap (5-19) BUN (8-23) mg/dL Creatinine (0.5-0.9) mg/dL GFR Calculation Glucose 368.0 H (65-115) mg/dL Calculated Osmolal ity (285-295) mOsm/k g Lactic Acid (0.5-2.2) mmol/L Calcium (8.5-10.5) mg/dL Total Bilirubin (0.15-1.2) mg/dL AST (0-32) U/L ALT (0-33) U/L Alkaline Phosphata se (35-105) IU/L Creatine Kinase (26-192) U/L Troponin T Baselin e (0-10) ng/L Troponin T 120 Min [place] (0-10) ng/L Delta Troponin T (0-10) ABS# Total Protein (6.6-8.7) g/dL Albumin (3.5-5.2) g/dL Globulin (1.3-4.6) g/dL Lipase (13-60) U/L Procalcitonin 0.10 (0-0.5) ng/mL Urine Color Yellow (Yellow) Urine Appearance Hazy A (CLEAR) Urine pH 6 (5-7) Ur Specific Gravit y 1.015 (1.005-1.030) Urine Protein Trace (Negative) Urine Glucose (UA) 4+ H (Normal) Urine Ketones Negative (Negative) Urine Blood 2+ H (Negative) Urine Nitrate Positive H (Negative) Urine Bilirubin Neg (Negative) Urine Urobilinogen Norm (Negative) mg/dL Ur Leukocyte Aisha ase 2+ H (Negative) Urine RBC Rare (0-2) /hpf Urine WBC Too numerous to c nt H (0-5) /hpf Ur Squamous Epith Cells None (0-5) /hpf Amorphous Sediment Not Reportable Urine Bacteria 4+ H (NONE) /hpf 07/03/20 07/03/20 Range/Units 10:44 10:44 WBC (4.0-10.0) 10^3/ uL RBC (4.1-5.3) 10^6/u L Hgb (11.5-15.3) g/dL Hct (37.0-47.0) % MCV (81-99) fL MCH (28.0-34.0) pg MCHC (30.0-36.0) g/dL RDW (12.1-15.1) % Plt Count (130-400) 10^3/c mm MPV (7.4-10.4) fL Neut % (Auto) % Lymph % (Auto) % [place] % (Auto) % Eos % (Auto) % Baso % (Auto) % Neut # (Auto) (1.8-7.7) 10^3/u L Lymph # (Auto) (0.8-4.8) 10^3/u L [place] # (Auto) (0.2-0.9) 10^3/u L Eos # (Auto) (0.0-0.8) 10^3/u L Baso # (Auto) (0.0-0.1) 10^3/u L Nucleated RBC % (a uto) % Nucleated RBCs # /100WBC Specimen Type Sample Site ABG pH (7.35-7.45) ABG pCO2 (35-45) mmHg ABG pO2 (80.0-100.0) mmH g ABG HCO3 (22-26) mmol/L ABG O2 Saturation ABG Base Excess (-2.0-2.0) mmol/ L Salvatore Test A-a O2 Gradient (5-10) mmHg Hematocrit (37-47) % Hgb O2 Saturation (95-100) % Carboxyhemoglobin (0.4-20.1) %THgb Methemoglobin (0.4-1.5) % Total Hemoglobin (12-16) g/dL Ionized Calcium (1.1-1.4) mmol/L O2 Delivery Device O2 Liters/Min % Director Pharmacovigilance ID Sodium (136-145) mmol/L Potassium (3.5-5.1) mmol/L Chloride (98-107) mmol/L Carbon Dioxide (22-29) mmol/L Anion Gap (5-19) BUN (8-23) mg/dL Creatinine (0.5-0.9) mg/dL GFR Calculation Glucose (65-115) mg/dL Calculated Osmolal ity (285-295) mOsm/k g Lactic Acid 1.4 (0.5-2.2) mmol/L Calcium (8.5-10.5) mg/dL Total Bilirubin (0.15-1.2) mg/dL AST (0-32) U/L ALT (0-33) U/L Alkaline Phosphata se (35-105) IU/L Creatine Kinase (26-192) U/L Troponin T Baselin e (0-10) ng/L Troponin T 120 Min [place] 21.10 H (0-10) ng/L Delta Troponin T -0.90 L (0-10) ABS# Total Protein (6.6-8.7) g/dL Albumin (3.5-5.2) g/dL Globulin (1.3-4.6) g/dL Lipase (13-60) U/L Procalcitonin (0-0.5) ng/mL Urine Color (Yellow) Urine Appearance (CLEAR) Urine pH (5-7) Ur Specific Gravit y (1.005-1.030) Urine Protein (Negative) Urine Glucose (UA) (Normal) Urine Ketones (Negative) Urine Blood (Negative) Urine Nitrate (Negative) Urine Bilirubin (Negative) Urine Urobilinogen (Negative) mg/dL Ur Leukocyte Aisha ase (Negative) Urine RBC (0-2) /hpf Urine WBC (0-5) /hpf Ur Squamous Epith Cells (0-5) /hpf Amorphous Sediment Urine Bacteria (NONE) /hpf Discharge Plan Discharge Patient Disposition: Admitted As Inpatient Admit Provider: Ricco Young Clinical Impression: Aspiration pneumonia, EVGENY (acute kidney injury), Delirium due to general medical condition, Cystitis Condition: Stable Discharge Diet: Start new tube feeds as directed Discharge Activity: Increase activity as tolerated and Oxygen as instructed Coding Level of Care Code ED Slip Maker for g Fwd Exam Detailed Documented by User: Ricco Young MD 07/09/20 23:01 [facility] ED PFS: Medical History (Updated 07/03/20 @ 22:12 by Ricco Young MD) Brain tumor Cricopharyngeal achalasia Diabetes mellitus, type II Diabetic polyneuropathy Essential hypertension, benign GERD (gastroesophageal reflux disease) Hyperlipidemia associated with type 2 diabetes mellitus Hypertension Patient has been controlled with oral blood pressure medications. Hypothyroid Smell, impaired Taste absent Vitamin D deficiency Patient has history of Vitamin D deficiency. Surgical History (Updated 07/03/20 @ 22:11 by Ricco Young MD) H/O brain surgery Brain Tumor removed 2011 History of bladder surgery S/P appendectomy S/P arthroscopy of left shoulder S/P cataract surgery S/P cholecystectomy S/P gastric bypass S/P vaginal hysterectomy Status post corneal transplant Social History Smoking and tobacco status: former smoker Second hand smoke exposure: No Smoking risk assessment/counseling performed?: No Alcohol intake: never Desire information about alcohol rehabilitation?: No Counseling given: No Desire information about substance/drug rehabilitation?: No Counseling given: No Course Vital Signs: Vital signs: Vital Signs Temperature 98.3 F 07/09/20 19:29 Pulse Rate 97 07/09/20 19:29 Respiratory Rate 16 07/09/20 19:29 Blood Pressure 155/81 07/09/20 19:29 Pulse Oximetry 92 07/09/20 19:29 MDM - Altered Mental Status Lab Data: Labs: Lab Results 07/03/20 07/03/20 07/03/20 Range/Units 08:45 08:45 08:45 WBC 8.6 (4.0-10.0) 10^3/ uL RBC 4.63 (4.1-5.3) 10^6/u L Hgb 13.0 (11.5-15.3) g/dL Hct 42.4 (37.0-47.0) % MCV 91.6 (81-99) fL MCH 28.1 (28.0-34.0) pg MCHC 30.7 (30.0-36.0) g/dL RDW 14.6 (12.1-15.1) % Plt Count 273 (130-400) 10^3/c mm MPV 11.9 H (7.4-10.4) fL Neut % (Auto) 73.7 % Lymph % (Auto) 13.2 % [place] % (Auto) 9.1 % Eos % (Auto) 2.8 % Baso % (Auto) 0.6 % Neut # (Auto) 6.35 (1.8-7.7) 10^3/u L Lymph # (Auto) 1.1 (0.8-4.8) 10^3/u L [place] # (Auto) 0.8 (0.2-0.9) 10^3/u L Eos # (Auto) 0.2 (0.0-0.8) 10^3/u L Baso # (Auto) 0.1 (0.0-0.1) 10^3/u L Nucleated RBC % (a uto) 0 % Nucleated RBCs # 0.0 /100WBC Specimen Type Sample Site ABG pH (7.35-7.45) ABG pCO2 (35-45) mmHg ABG pO2 (80.0-100.0) mmH g ABG HCO3 (22-26) mmol/L ABG O2 Saturation ABG Base Excess (-2.0-2.0) mmol/ L Salvatore Test A-a O2 Gradient (5-10) mmHg Hematocrit (37-47) % Hgb O2 Saturation (95-100) % Carboxyhemoglobin (0.4-20.1) %THgb Methemoglobin (0.4-1.5) % Total Hemoglobin (12-16) g/dL Ionized Calcium (1.1-1.4) mmol/L O2 Delivery Device O2 Liters/Min % Director Pharmacovigilance ID Sodium 131 L (136-145) mmol/L Potassium 4.8 (3.5-5.1) mmol/L Chloride 91 L (98-107) mmol/L Carbon Dioxide 31 H (22-29) mmol/L Anion Gap 13.8 (5-19) BUN 34 H (8-23) mg/dL Creatinine 0.6 (0.5-0.9) mg/dL GFR Calculation Not Reportable Glucose 356 H (65-115) mg/dL Calculated Osmolal ity 294 (285-295) mOsm/k g Lactic Acid (0.5-2.2) mmol/L Calcium 8.7 (8.5-10.5) mg/dL Total Bilirubin 0.5 (0.15-1.2) mg/dL AST 16 (0-32) U/L ALT 10 (0-33) U/L Alkaline Phosphata se 109 H (35-105) IU/L Creatine Kinase 13 L (26-192) U/L Troponin T Baselin e 22 H (0-10) ng/L Troponin T 120 Min [place] (0-10) ng/L Delta Troponin T (0-10) ABS# Total Protein 5.7 L (6.6-8.7) g/dL Albumin 3.5 (3.5-5.2) g/dL Globulin 2.2 (1.3-4.6) g/dL Lipase 17 (13-60) U/L Procalcitonin (0-0.5) ng/mL Urine Color (Yellow) Urine Appearance (CLEAR) Urine pH (5-7) Ur Specific Gravit y (1.005-1.030) Urine Protein (Negative) Urine Glucose (UA) (Normal) Urine Ketones (Negative) Urine Blood (Negative) Urine Nitrate (Negative) Urine Bilirubin (Negative) Urine Urobilinogen (Negative) mg/dL Ur Leukocyte Aisha ase (Negative) Urine RBC (0-2) /hpf Urine WBC (0-5) /hpf Ur Squamous Epith Cells (0-5) /hpf Amorphous Sediment Urine Bacteria (NONE) /hpf 07/03/20 07/03/20 07/03/20 Range/Units 08:45 09:30 10:08 WBC (4.0-10.0) 10^3/ uL RBC (4.1-5.3) 10^6/u L Hgb (11.5-15.3) g/dL Hct (37.0-47.0) % MCV (81-99) fL MCH (28.0-34.0) pg MCHC (30.0-36.0) g/dL RDW (12.1-15.1) % Plt Count (130-400) 10^3/c mm MPV (7.4-10.4) fL Neut % (Auto) % Lymph % (Auto) % [place] % (Auto) % Eos % (Auto) % Baso % (Auto) % Neut # (Auto) (1.8-7.7) 10^3/u L Lymph # (Auto) (0.8-4.8) 10^3/u L [place] # (Auto) (0.2-0.9) 10^3/u L Eos # (Auto) (0.0-0.8) 10^3/u L Baso # (Auto) (0.0-0.1) 10^3/u L Nucleated RBC % (a uto) % Nucleated RBCs # /100WBC Specimen Type Arterial Sample Site Radial, left ABG pH 7.45 (7.35-7.45) ABG pCO2 46.7 H (35-45) mmHg ABG pO2 81.4 (80.0-100.0) mmH g ABG HCO3 32.4 H (22-26) mmol/L ABG O2 Saturation 97.3 ABG Base Excess 7.3 H (-2.0-2.0) mmol/ L Salvatore Test Pos A-a O2 Gradient 1.4 L (5-10) mmHg Hematocrit 40.1 (37-47) % Hgb O2 Saturation 95.6 (95-100) % Carboxyhemoglobin 1.0 (0.4-20.1) %THgb Methemoglobin 0.7 (0.4-1.5) % Total Hemoglobin 13.1 (12-16) g/dL Ionized Calcium 1.2 (1.1-1.4) mmol/L O2 Delivery Device Nrb O2 Liters/Min 15.0 % Director Pharmacovigilance ID glc Sodium 130.0 L (136-145) mmol/L Potassium 4.3 (3.5-5.1) mmol/L Chloride (98-107) mmol/L Carbon Dioxide (22-29) mmol/L Anion Gap (5-19) BUN (8-23) mg/dL Creatinine (0.5-0.9) mg/dL GFR Calculation Glucose 368.0 H (65-115) mg/dL Calculated Osmolal ity (285-295) mOsm/k g Lactic Acid (0.5-2.2) mmol/L Calcium (8.5-10.5) mg/dL Total Bilirubin (0.15-1.2) mg/dL AST (0-32) U/L ALT (0-33) U/L Alkaline Phosphata se (35-105) IU/L Creatine Kinase (26-192) U/L Troponin T Baselin e (0-10) ng/L Troponin T 120 Min [place] (0-10) ng/L Delta Troponin T (0-10) ABS# Total Protein (6.6-8.7) g/dL Albumin (3.5-5.2) g/dL Globulin (1.3-4.6) g/dL Lipase (13-60) U/L Procalcitonin 0.10 (0-0.5) ng/mL Urine Color Yellow (Yellow) Urine Appearance Hazy A (CLEAR) Urine pH 6 (5-7) Ur Specific Gravit y 1.015 (1.005-1.030) Urine Protein Trace (Negative) Urine Glucose (UA) 4+ H (Normal) Urine Ketones Negative (Negative) Urine Blood 2+ H (Negative) Urine Nitrate Positive H (Negative) Urine Bilirubin Neg (Negative) Urine Urobilinogen Norm (Negative) mg/dL Ur Leukocyte Aisha ase 2+ H (Negative) Urine RBC Rare (0-2) /hpf Urine WBC Too numerous to c nt H (0-5) /hpf Ur Squamous Epith Cells None (0-5) /hpf Amorphous Sediment Not Reportable Urine Bacteria 4+ H (NONE) /hpf 07/03/20 07/03/20 Range/Units 10:44 10:44 WBC (4.0-10.0) 10^3/ uL RBC (4.1-5.3) 10^6/u L Hgb (11.5-15.3) g/dL Hct (37.0-47.0) % MCV (81-99) fL MCH (28.0-34.0) pg MCHC (30.0-36.0) g/dL RDW (12.1-15.1) % Plt Count (130-400) 10^3/c mm MPV (7.4-10.4) fL Neut % (Auto) % Lymph % (Auto) % [place] % (Auto) % Eos % (Auto) % Baso % (Auto) % Neut # (Auto) (1.8-7.7) 10^3/u L Lymph # (Auto) (0.8-4.8) 10^3/u L [place] # (Auto) (0.2-0.9) 10^3/u L Eos # (Auto) (0.0-0.8) 10^3/u L Baso # (Auto) (0.0-0.1) 10^3/u L Nucleated RBC % (a uto) % Nucleated RBCs # /100WBC Specimen Type Sample Site ABG pH (7.35-7.45) ABG pCO2 (35-45) mmHg ABG pO2 (80.0-100.0) mmH g ABG HCO3 (22-26) mmol/L ABG O2 Saturation ABG Base Excess (-2.0-2.0) mmol/ L Salvatore Test A-a O2 Gradient (5-10) mmHg Hematocrit (37-47) % Hgb O2 Saturation (95-100) % Carboxyhemoglobin (0.4-20.1) %THgb Methemoglobin (0.4-1.5) % Total Hemoglobin (12-16) g/dL Ionized Calcium (1.1-1.4) mmol/L O2 Delivery Device O2 Liters/Min % Director Pharmacovigilance ID Sodium (136-145) mmol/L Potassium (3.5-5.1) mmol/L Chloride (98-107) mmol/L Carbon Dioxide (22-29) mmol/L Anion Gap (5-19) BUN (8-23) mg/dL Creatinine (0.5-0.9) mg/dL GFR Calculation Glucose (65-115) mg/dL Calculated Osmolal ity (285-295) mOsm/k g Lactic Acid 1.4 (0.5-2.2) mmol/L Calcium (8.5-10.5) mg/dL Total Bilirubin (0.15-1.2) mg/dL AST (0-32) U/L ALT (0-33) U/L Alkaline Phosphata se (35-105) IU/L Creatine Kinase (26-192) U/L Troponin T Baselin e (0-10) ng/L Troponin T 120 Min [place] 21.10 H (0-10) ng/L Delta Troponin T -0.90 L (0-10) ABS# Total Protein (6.6-8.7) g/dL Albumin (3.5-5.2) g/dL Globulin (1.3-4.6) g/dL Lipase (13-60) U/L Procalcitonin (0-0.5) ng/mL Urine Color (Yellow) Urine Appearance (CLEAR) Urine pH (5-7) Ur Specific Gravit y (1.005-1.030) Urine Protein (Negative) Urine Glucose (UA) (Normal) Urine Ketones (Negative) Urine Blood (Negative) Urine Nitrate (Negative) Urine Bilirubin (Negative) Urine Urobilinogen (Negative) mg/dL Ur Leukocyte Aisha ase (Negative) Urine RBC (0-2) /hpf Urine WBC (0-5) /hpf Ur Squamous Epith Cells (0-5) /hpf Amorphous Sediment Urine Bacteria (NONE) /hpf Discharge Plan Discharge Patient Disposition: Admitted As Inpatient Admit Provider: Ricco Young Clinical Impression: Aspiration pneumonia, EVGENY (acute kidney injury), Delirium due to general medical condition, Cystitis Condition: Stable Discharge Diet: Start new tube feeds as directed Discharge Activity: Increase activity as tolerated and Oxygen as instructed Coding Level of Care Code ED Slip Maker for Chg Fwd Exam Detailed
[2020-07-03 09:27] LABS: Basophils # 0.1 10^3/uL (0.0-0.1); Basophils % 0.6 %; Eosinophils # 0.2 10^3/uL (0.0-0.8); Eosinophils % 2.8 %; Hematocrit 42.4 % (37.0-47.0); Lymphocytes # 1.1 10^3/uL (0.8-4.8); Lymphocytes % 13.2 %; Mean Corpuscular HGB Conc 30.7 g/dL (30.0-36.0); Mean Corpuscular Hemoglobin 28.1 pg (28.0-34.0); Mean Corpuscular Volume 91.6 fL (81-99); Mean Platelet Volume 11.9 fL (7.4-10.4); Monocytes # 0.8 10^3/uL (0.2-0.9); Monocytes % 9.1 %; Neutrophils # 6.35 10^3/uL (1.8-7.7); Neutrophils % 73.7 %; Nucleated Red Blood Cells % 0 %; Platelet Count 273 10^3/cmm (130-400); Red Blood Count 4.63 10^6/uL (4.1-5.3); Red Cell Distribution Width 14.6 % (12.1-15.1); White Blood Count 8.6 10^3/uL (4.0-10.0)
[2020-07-03 09:41] LABS: ABG PCO2 46.7 mmHg (35-45); ABG PH Result 7.45 (7.35-7.45); Alveolar-Arterial Oxygen Gradi 1.4 mmHg (5-10); Arterial Blood Gas Hematocrit 40.1 % (37-47); Base Excess ABG 7.3 mmol/L (-2.0-2.0); Blood Gas Allen Test Pos; Blood Gas Operator Identificat glc; Blood Gas Sample Site Radial, left; Blood Gas Sample Type Arterial; HCO3 ABG 32.4 mmol/L (22-26); HGB O2 Sat 95.6 % (95-100); Ionized Calcium Level - ABG 1.2 mmol/L (1.1-1.4); Methemoglobin 0.7 % (0.4-1.5); Oxygen Device NRB; Oxygen Saturation ABG 97.3; PO2 ABG 81.4 mmHg (80.0-100.0); Potassium Level - ABG 4.3 mmol/L (3.5-5.0); Total Hemoglobin 13.1 g/dL (12-16)
[2020-07-03 09:42] LABS: Alanine Aminotransferase 10 U/L (0-33); Albumin Level 3.5 g/dL (3.5-5.2); Alkaline Phosphatase 109 IU/L (35-105); Anion Gap 13.8 (5-19); Aspartate Amino Transferase 16 U/L (0-32); Blood Urea Nitrogen 34 mg/dL (8-23); Calcium 8.7 mg/dL (8.5-10.5); Carbon Dioxide 31 mmol/L (22-29); Chloride 91 mmol/L (98-107); Creatine Phosphokinase 13 U/L (26-192); Globulin 2.2 g/dL (1.3-4.6); Glucose 356 mg/dL (65-115); Lipase 17 U/L (13-60); Osmolality Calculated 294 mOsm/kg (285-295); Potassium 4.8 mmol/L (3.5-5.1); Sodium 131 mmol/L (136-145); Total Bilirubin 0.5 mg/dL (0.15-1.2); Total Protein 5.7 g/dL (6.6-8.7)
[2020-07-03] MEDS: sodium chloride 0.9% 1,000 ML 999 ML IV (10:09)
--- NOTE | 2020-07-03 10:35 | ECG_ITS ---
[facility] Test Date: 2020-07-03 Pat Name: Kaur Garland Department: Room: Gender: Female Regenerator Operator: : [id number] Requested By: Terrell Farmer Order Number: [id number] Feli MD: Emeli Huggins M.D. Measurements Intervals [place] Rate: 109 P: 43 OK: 141 QRS: -45 QRSD: 96 T: 72 QT: 308 QTc: 415 Interpretive Statements SINUS TACHYCARDIA WITH OCCASIONAL SUPRAVENTRICULAR PREMATURE COMPLEXES LEFT ANTERIOR FASCICULAR BLOCK [QRS AXIS <= -45, QR IN I, RS IN II] Compared to ECG 07/03/2020 09:35:07 Left anterior fascicular block now present Left-axis deviation no longer present Electronically Signed On 07-03-2020 20:25:42 SUBSTANCE ABUSE SPECIALIST by Emeli Huggins M.[email or web address]
[2020-07-03 10:52] LABS: Glucose Urine UA 4+ (Normal); Ketones Urine Negative (Negative); Protein Urine Trace (Negative); Specific Gravity, Urine 1.015 (1.005-1.030); Urine Appearance Hazy (CLEAR); Urine Color Yellow (Yellow); pH Urine 6 (5-7)
[2020-07-03 10:52] LABS: Troponin(5th) Baseline 22 ng/L (0-10)
[2020-07-03 10:53] LABS: Add Urine Microscopic? YES; Bilirubin Urine Neg (Negative); Blood Urine 2+ (Negative); Leukocyte Esterase Urine 2+ (Negative); Nitrate Urine Positive (Negative); Urobilinogen Urine Norm (Negative)
[2020-07-03 10:54] LABS: RBC Urine RARE /hpf (0-2); WBC Urine TOO NUMEROUS TO CNT /hpf (0-5)
[2020-07-03 10:55] LABS: Add Urine Culture? Yes; Bacteria Urine 4+ /hpf
[2020-07-03 11:07] LABS: Lactic Sepsis W/Reflex 1.4 mmol/L (0.5-2.2)
--- NOTE | 2020-07-03 11:23 | P.HP_ITS ---
Providers/Chief Complaint Primary Care Provider: AMY Cordova Chief Complaint: AMS History of Present Illness 80-year-old female with a past medical history significant for reported vocal cord paralysis, insulin-dependent diabetes mellitus, diabetic neuropathy, hypertension, gastroesophageal reflux disease, dyslipidemia, hypothyroidism, gastric bypass, cholecystectomy and brain tumor which was initialy resected however noted to have recurrence s/p whole brain radiation x 1 ( 1 yr prior) who was brought to ER due to altered mental status. Patient was recently admitted to [facility] from 06/09 to 06/11 during which time she was suspected to have ascending cholengitis and transferred to [facility] for ERCP. Also during this hospitalization was noted to have new-onset atrial fibrillation and clostridium dificile colitis. Per daughter at [facility] she was tx with IV antibiotics. She is unclear if ERCP was done. Prior to discharge patient was noted to have dysphagia and high risk for aspiration during which time a PEG tube was placed. Patient was stable until during which time she was found to be confused with expressive aphasia. Over the next few days she was noted to be increasingly confused. Lab work up at [facility] had shown hypernatremia and UTI which was tx with antibiotics. Unclear if patient was noted to have respiratory distress however was placed on oxygen. She was noted to have a productive cough which started after patient was resumed on oral intake despite PEG tube/tube feedings. Arrived to ER today on 15L via NRB. Per daughter patient was comprehending questions and following commands however not able to respond. Laboratory work up on arrival to ER today showed a wbc of 8.6, Hb of 13.0, hct of 42.5 and a platelet count of 273. Sodium of 131, potassium of 4.8 , chloride of 91, bicarbonate of 31, BUN of 34 and a creatinine of 0.6. ABG of 7.45, pCO2 of 46.7, p02 of 81 and a bicarb of 32.4 on 15L via NRB. Lactic acid of 1.4 Troponin of 22 baseline and a repeat of 21.10 at 120 min. Delta T-T negative 0.90. UA showed nitrite positive, 2+ leukocyte esterace, numerous WBC adn 4+ bacteria. Chest x-ray showed very small b/l pleural effusions vs pleural thickening and left basilar sub-segmental atelectasis. Head CT was also performed which showed large resection cavity in the LEFT temporoparietal region is again evident and prominent soft tissue density at the resection site measuring 13 x 17 mm. Possible recurrence of brain tumor. In ER patient was given clindamycin 600mg IV x 1 for suspected aspiration pneumonia. At the time of my eval patient was noted to have right sided weakness which per daughter at bedside may have been new and could have started on with speech abnormality. Review of Systems General: Reports: ROS unobtainable due to mental status Medications/Allergies Home Medications Medication Instructions Recorded Confirmed Last Taken Type albuterol sulfate 2 puff INHALATION Q6H PRN 02/14/20 07/03/20 06/08/20 History ciprofloxacin HCl 250 mg tablet See Rx Instructions .ROUTE 06/07/20 07/03/20 07/02/20 Rx .COMPLEX #6 tab acetaminophen 500 mg PO Q6H PRN 07/03/20 07/03/20 Unknown History apixaban [Eliquis] 5 mg PO Q12H 07/03/20 07/03/20 07/02/20 History bisacodyl 10 mg MI DAILY PRN 07/03/20 07/03/20 Unknown History chlorthalidone 25 mg PO DAILY@07/03/20 07/03/20 07/02/20 History ergocalciferol (vitamin D2) 50,000 unit PO Q7D 07/03/20 07/03/20 07/02/20 Hi story fluticasone propionate 1 spray INTRANASAL DAILY@07/03/20 07/03/20 07/02/20 History lactose-reduced food with fibr See Rx Instructions .ROUTE .COMPLEX 07/03/20 07/03/20 07/02/20 History [Jevity 1.5 Gentry] levothyroxine 100 mcg PO DAILY@06 07/03/20 07/03/20 07/03/20 History lisinopril 40 mg PO DAILY@07/03/20 07/03/20 07/02/20 History magnesium hydroxide [Milk of 30 ml PO DAILY PRN 07/03/20 07/03/20 Unknown History Magnesia] metoprolol tartrate 25 mg PO Q12H 07/03/20 07/03/20 07/02/20 History nitrofurantoin monohyd/m-cryst 100 mg PO Q12H 07/03/20 07/03/20 07/02/20 History [Macrobid] omeprazole 40 mg PO DAILY@08 07/03/20 07/03/20 07/02/20 History ondansetron HCl [Zofran] 4 mg PO Q8H PRN 07/03/20 07/03/20 07/02/20 History polyethylene glycol 3350 [Miralax] 17 g PO DAILY PRN 07/03/20 07/03/20 Unknown History prednisolone acetate 1 drop OPHTHALMIC (EYE) QID 07/03/20 07/03/20 07/02/20 History sennosides-docusate sodium 1 tab-cap PO DAILY PRN 07/03/20 07/03/20 Unknown History [Senna-S] sodium phosphates [Enema] 118 ml MI DAILY PRN 07/03/20 07/03/20 Unknown History Allergies Allergy/AdvReac Type Severity Reaction Status Date / Time amoxicillin [From Augmentin] Allergy Mild ADR-Diarrhe Verified 02/15/20 07:02 a ampicillin Allergy Mild ADR-Diarrhe Verified 02/15/20 07:02 a clavulanic acid Allergy Mild ADR-Diarrhe Verified 02/15/20 07:02 [From Augmentin] a doxycycline Allergy Mild ADR-Diarrhe Verified 02/15/20 07:02 a hydrocodone Allergy Mild ADR-Diarrhe Verified 02/15/20 07:02 a magnesium Allergy Mild ADR-Diarrhe Verified 02/15/20 07:02 a metformin Allergy Mild ADR-Diarrhe Verified 02/15/20 07:02 a penicillin V Allergy Mild ADR-Diarrhe Verified 02/15/20 07:02 a acyclovir AdvReac Mild ADR-Diarrhe Verified 02/15/20 07:02 a codeine AdvReac Mild ADR-Faintin Verified 02/15/20 07:02 g sulfamethoxazole AdvReac Mild ADR-Diarrhe Verified 02/15/20 07:02 [From Bactrim] a trimethoprim [From Bactrim] AdvReac Mild ADR-Diarrhe Verified 02/15/20 07:02 a PFSH Acute PFSH: Medical History (Updated 07/03/20 @ 22:12 by Ricco Young MD) Brain tumor Cricopharyngeal achalasia Diabetes mellitus, type II Diabetic polyneuropathy Essential hypertension, benign GERD (gastroesophageal reflux disease) Hyperlipidemia associated with type 2 diabetes mellitus Hypertension Patient has been controlled with oral blood pressure medications. Hypothyroid Smell, impaired Taste absent Vitamin D deficiency Patient has history of Vitamin D deficiency. Surgical History (Updated 07/03/20 @ 22:11 by Ricco Young MD) H/O brain surgery Brain Tumor removed 2011 History of bladder surgery S/P appendectomy S/P arthroscopy of left shoulder S/P cataract surgery S/P cholecystectomy S/P gastric bypass S/P vaginal hysterectomy Status post corneal transplant Social History Smoking and tobacco status: former smoker Second hand smoke exposure: No Smoking risk assessment/counseling performed?: No Alcohol intake: never Desire information about alcohol rehabilitation?: No Counseling given: No Desire information about substance/drug rehabilitation?: No Counseling given: No Vitals/I&O/Wt Last Vital Signs Temp 97.5 F L 07/03/20 08:35 Pulse 115 H 07/03/20 08:35 Resp 20 H 07/03/20 08:35 BP 152/96 07/03/20 08:35 Pulse Ox 87 L 07/03/20 08:35 Physical Exam Narrative: EXAM NARRATIVE: General- chronically ill-appearing elderly HEENT- grossly unremarkable Chest- Non-labored respiration on via NC CVS :NSR ABD : S/p Peg EXT : no edema Neuro: Right UE/LE weakness Urinary Catheter Management^: Lance: Cath Placed During This Visit: no Data : 07/03/20 08:45 07/03/20 08:45 A&P Assessment and plan (1) Aspiration pneumonia: Status: Acute (2) Expressive aphasia: Status: Acute (3) Recurrent neoplasm of brain: Status: Acute (4) Dysphagia: Status: Acute (5) S/P percutaneous endoscopic gastrostomy (PEG) tube placement: Status: Acute (6) Acute hypoxemic respiratory failure: Status: Acute (7) Hyperlipidemia associated with type 2 diabetes mellitus: Status: Acute (8) Vitamin D deficiency: Status: Acute (9) Diabetes mellitus, type II: Status: Acute (10) Hypothyroid: Status: Acute Acute Encephalopathy with expressive aphasia and right sided weakness - Sx started 06/29 - Etiology likely multi-factorial - Brain tumor recurrence vs CVA vs infectious - Will perform neuro- work up - Neuro-checks/NIH as ordered - Monitor on tele - CT head w/o contrast - Mass measuring 13 x 17 mm, No recent imaging to compare to. No evidence of acute hemorrhage - Will obtain records from oncology office - MRI brain w/o contrast ordered or AM - Per daughter if recurrence - would not consider repeat radiation or surgical intervention - NPO - PT/ST/OT consult Acute Hypoxic Respiratory Failure suspected aspiration pneumonia - On 15L via NRB - Wean as tolerated - Sputum gram stain and culture - S/p Ciprofloxacin/Clindamycin in ER - Will start Rocephin 2g IV daily plus Flagyl 500mg IV q8hr - Blood culture x 2 in ER - High - risk for c-diff recurrence - Will start on pro-biotics - To remain NPO for now - Hold tube feeding - ok to administer meds via PEG tube - Repeat chest -xray if worsening Suspected Urinary tract infection - UA positive for nitrates, leuk esterace, WBC, 2+ bacteria - Follow up on urine culture - Abx as noted above Insulin Dependent Diabetes - Sliding scale insulin - BS checks Q6hr - A1c in AM Recent C-Diff Colitis - Tx with Vancomycin - No current diarrhea Dysphagia - Recent PEG tube placement - Holding tube feeding - No clear evidence of insertion site infection Paroxysmal Atrial Fibrillation - On Eliquis 5 mg PO Q12hr - Will continue for now Gasteroesophageal reflux disease - Pepcid 20 mg IV BID Prognosis : Guarded CODE STATUS: A.N.D Attestations Medical Necessity Statement*: Anticipate over 2 midnights stay in hospital for evaluation and treatment of aspiration pneumonia, respiratory distress, expressive aphasia, right-sided weakness. Time Spent in Patient Care: Greater than 35 minutes (>than 50% of time spent in counselling and/or direct pt care on unit) . Coding Level of Care Code Acute Catering Service Manager for g Fwd Diagnoses Aspiration pneumonia J69.0 Expressive aphasia R47.01 Recurrent neoplasm of brain D49.6 Dysphagia R13.10 S/P percutaneous endoscopic gastrostomy (PEG) tube placement Z93.1 Acute hypoxemic respiratory failure J96.01 Hyperlipidemia associated with type 2 diabetes mellitus E11.69; E78.5 Vitamin D deficiency E55.9 Diabetes mellitus, type II E11.9 Hypothyroid E03.9
[2020-07-03] MEDS: morphine 4 mg/mL SDV 1 mL 2 MG IVP (11:29)
[2020-07-03] MEDS: ciprofloxacin 400 MG/200 ML PREMIX 200 MG IV (11:34)
--- NOTE | 2020-07-03 12:35 | ECG_ITS ---
[facility] Test Date: 2020-07-03 Pat Name: Kaur Garland Department: Room: 276 Gender: Female Scarfer Operator: : 1940 Requested By: Terrell Farmer Order Number: [id number] Feli MD: Emeli Huggins M.D. Measurements Intervals [place] Rate: 125 P: 47 [place]: 152 QRS: -7 QRSD: 94 T: 40 QT: 277 QTc: 401 Interpretive Statements SINUS TACHYCARDIA ABNORMAL RHYTHM ECG Compared to ECG 07/03/2020 10:52:25 Left anterior fascicular block no longer present Electronically Signed On 07-03-2020 20:50:52 DISK SANDER by Emeli Huggins M.D. [id number]
[2020-07-03] MEDS: sodium chloride 0.9% 1,000 ML 100 ML IV (15:04)
[2020-07-03] MEDS: metroNIDAZOLE IV 500 MG/100 ML PREMIX 100 MG IV ×2 (15:11→23:48)
[2020-07-03 15:21] LABS: SARS Covid-2 Antigen Negative (Negative)
[2020-07-03 15:46] LABS: Glucose Point of Care 400 mg/dL (70-110)
[2020-07-03] MEDS: cefTRIAXone 2,000 MG in sodium chloride 0.9% (plus) 50 ML 100 MG IV (15:59)
[2020-07-03] MEDS: famotidine 20 mg/2 mL INJ IVP (16:02)
[2020-07-03 16:11] LABS: Troponin 5 6HR 20.69 ng/L (0-10)
[2020-07-03 16:22] LABS: Troponin 5 6HR Delta -1.31 ng/L (0-12)
[2020-07-03 16:57] LABS: Glucose Point of Care 387 mg/dL (70-110)
--- NOTE | 2020-07-03 17:09 | PC.SLP ---
Addendum entered by Robin Paulino 07/03/20 17:12: Being treated/assessed by someone else. Original Note: Pt unavailable for eval at this time.
[2020-07-03 21:12] LABS: Glucose Point of Care 79 mg/dL (70-110)
[2020-07-03 22:28] LABS: Glucose Point of Care 77 mg/dL (70-110)
[2020-07-04] VITALS (8 sets, daily range): BP systolic 114–146; BP diastolic 67–79; PULSE 76–105; RESP 16–24; TEMP 36.4–36.9; O2SAT 95–99
[2020-07-04 01:19] LABS: Glucose Point of Care 143 mg/dL (70-110)
[2020-07-04] MEDS: sodium chloride 0.9% 1,000 ML 100 ML IV ×3 (01:19→22:39)
[2020-07-04] MEDS: famotidine 20 mg/2 mL INJ IVP ×2 (04:45→16:22)
[2020-07-04] MEDS: levothyroxine 100 mcg Tablet PEG-TUBE (05:58)
[2020-07-04] MEDS: acetaminophen 500 mg Tablet FEED TUBE (05:58)
[2020-07-04] MEDS: metroNIDAZOLE IV 500 MG/100 ML PREMIX 100 MG IV ×3 (06:32→22:39)
[2020-07-04 06:42] LABS: Glucose Point of Care 140 mg/dL (70-110)
[2020-07-04 07:05] LABS: Basophils # 0.1 10^3/uL (0.0-0.1); Basophils % 0.6 %; Eosinophils # 0.1 10^3/uL (0.0-0.8); Eosinophils % 0.7 %; Hematocrit 34.9 % (37.0-47.0); Lymphocytes # 0.9 10^3/uL (0.8-4.8); Lymphocytes % 7.8 %; Mean Corpuscular HGB Conc 31.5 g/dL (30.0-36.0); Mean Corpuscular Hemoglobin 28.9 pg (28.0-34.0); Mean Corpuscular Volume 91.8 fL (81-99); Monocytes # 0.6 10^3/uL (0.2-0.9); Neutrophils # 9.87 10^3/uL (1.8-7.7); Neutrophils % 85.5 %; Nucleated Red Blood Cells % 0 %; Platelet Count 235 10^3/cmm (130-400); Red Cell Distribution Width 14.6 % (12.1-15.1); White Blood Count 11.6 10^3/uL (4.0-10.0)
[2020-07-04 07:28] LABS: Albumin Level 2.6 g/dL (3.5-5.2); Chloride 99 mmol/L (98-107); Sodium 135 mmol/L (136-145)
[2020-07-04 07:29] LABS: Chol HDL Ratio 1.98 mg/dL (0.0-4.40); Cholesterol 107 mg/dL (0-200); HDL Cholesterol 54 mg/dL (60-100); LDL Cholesterol Calculated 45 mg/dL (50-129); LDL HDL Ratio 0.83 RATIO (0.00-3.22); Triglycerides 42 mg/dL (0-150)
[2020-07-04 07:38] LABS: Estmated Average Glucose 140; Hemoglobin A1C 6.5 % (4.0-6.0)
[2020-07-04 07:44] LABS: Alanine Aminotransferase 7 U/L (0-33); Alkaline Phosphatase 76 IU/L (35-105); Aspartate Amino Transferase 11 U/L (0-32); Blood Urea Nitrogen 36 mg/dL (8-23); Calcium 8.4 mg/dL (8.5-10.5); Carbon Dioxide 27 mmol/L (22-29); Globulin 2.4 g/dL (1.3-4.6); Glucose 145 mg/dL (65-115); Osmolality Calculated 291 mOsm/kg (285-295); Total Bilirubin 0.5 mg/dL (0.15-1.2)
[2020-07-04] MEDS: lactobacillus 1 Tablet 1 TAB PEG-TUBE ×3 (08:44→20:57)
--- NOTE | 2020-07-04 10:15 | MR_ITS ---
WS: [id number] MRI BRAIN WITHOUT CONTRAST HISTORY: new right sided weakness, possible recurrent of brain tumor COMPARISON: CT head 07/03/2020. No prior MRIs. TECHNIQUE: Diffusion imaging, multiplanar T1, T2 and FLAIR imaging obtained. Very tiny area of increased signal on the diffusion-weighted images is a LEFT parieto-occipital junct ion. Due to its small size no definite ADC map abnormality appreciated. There is extensive T2 and FLAIR signal hyperintensities throughout the white matter from chronic isch emic disease and microvascular disease. On the FLAIR sequence there is increased soft tissue with danish y mild increased signal intensity involving the LEFT skull base and the area of the LEFT cerebellum e xtending into the location of the mastoid air cells and at the skull base. Encephalomalacia and volum e loss at the resection cavity at the LEFT temporoparietal lesion. Without IV contrast cannot evaluat e for areas of enhancement. There is no mass effect. Ventricles and extra-axial spaces are normal. No inferior displacement of cerebellar tonsils. The sella turcica and pituitary gland are unremarkabl e. Dural venous sinuses and [place] demonstrate no abnormality on this unenhanced studies. Paranasal sinuses: Clear. Mastoid air cells: Abnormal LEFT mastoid air cells. This may be postoperative change with packing mat erial. This is closely associated with the surgical resection site involving the inferior LEFT tempor oparietal region. Recurrent tumor with extension into the mastoid air cells, skull base and LEFT cere bellum should also be considered. Calvarium and scalp: Craniectomy site on the LEFT. MR/MR head wo con* [id number] IMPRESSION: 1. Tiny diffusion-weighted abnormality suspicious for small acute infarct invo lving the LEFT parieto-occipital junction. No associated hemorrhage. 2. Extensive volume loss with postsurgical tumor resection involving the infer ior LEFT temporal parietal region. There is abnormal soft tissue contiguous wit h the resection cavity extending to the skull base with mass effect upon the LE FT cerebellum and into the mastoid air cells. This all may be normal postoperat mary changes with packing material. No prior MRI examinations or postcontrast en hancement MRI for comparison. Strongly recommend follow-up with neurosurgery an d comparison with prior MRIs of the brain with contrast to evaluate for stabili ty. Recurrent tumor is not excluded but these all may be stable changes. 3. Advanced chronic microvascular ischemic disease.
--- NOTE | 2020-07-04 10:16 | PC.NURSE ---
pt off unit to MRI
--- NOTE | 2020-07-04 11:20 | PC.NURSE ---
pt back on floor from MRI
[2020-07-04 12:12] LABS: Glucose Point of Care 137 mg/dL (70-110)
--- NOTE | 2020-07-04 13:44 | PM.PN ---
Subjective Subjective: Interval history: 80-year-old female with a past medical history significant for reported vocal cord paralysis s/p laryngoscopy with b/l true vocal cord injection/Laryngoplasty on 02/2020, insulin-dependent diabetes mellitus, diabetic neuropathy, hypertension, gastroesophageal reflux disease, dyslipidemia, hypothyroidism, gastric bypass, cholecystectomy and brain tumor which was initialy resected however noted to have recurrence s/p whole brain radiation x 1 ( 1 yr prior) who was brought to ER due to altered mental status. Patient was recently admitted to [facility] from 06/09 to 06/11 during which time she was suspected to have ascending cholengitis and transferred to [facility] for ERCP. Also during this hospitalization was noted to have new-onset atrial fibrillation and clostridium dificile colitis. Per daughter at [facility] she was tx with IV antibiotics. She is unclear if ERCP was done. Prior to discharge patient was noted to have dysphagia and high risk for aspiration during which time a PEG tube was placed. Patient was stable until during which time she was found to be confused with dysarthria. Over the next few days she was noted to be increasingly confused. Lab work up at [facility] had shown hypernatremia and UTI which was tx with antibiotics. Unclear if patient was noted to have respiratory distress however was placed on oxygen. She was noted to have a productive cough which started after patient was resumed on oral intake despite PEG tube/tube feedings. Arrived to ER today on 15L via NRB. Per daughter patient was comprehending questions and following commands however not able to respond. Laboratory work up on arrival to ER today showed a wbc of 8.6, Hb of 13.0, hct of 42.5 and a platelet count of 273. Sodium of 131, potassium of 4.8 , chloride of 91, bicarbonate of 31, BUN of 34 and a creatinine of 0.6. ABG of 7.45, pCO2 of 46.7, p02 of 81 and a bicarb of 32.4 on 15L via NRB. Lactic acid of 1.4 Troponin of 22 baseline and a repeat of 21.10 at 120 min. Delta T-T negative 0.90. UA showed nitrite positive, 2+ leukocyte esterace, numerous WBC adn 4+ bacteria. Chest x-ray showed very small b/l pleural effusions vs pleural thickening and left basilar sub-segmental atelectasis. Head CT was also performed which showed large resection cavity in the LEFT temporoparietal region is again evident and prominent soft tissue density at the resection site measuring 13 x 17 mm. Possible recurrence of brain tumor. In ER patient was given clindamycin 600mg IV x 1 for suspected aspiration pneumonia. At the time of my eval patient was noted to have right sided weakness which per daughter at bedside may have been new and could have started on with speech abnormality. Antibiotics were changed to Rocephin 2g IV daily plus flagyl 500mg IV daily. Procalcitonin however was negative. Blood culture had not shown any growth. Urine culture however did grow gram negative rods. Leukocytosis increased to 11. Remained afebrile however. In addition to this patient was initiated on stroke protocol as well. Was continued on Eliquis 5mg Per peg BID, lipitor 40mg per peg was continued. MRI Brain was obtained which showed tiny diffusion- weighted abnormality suspicious for small acute infarct involving left parieto-occipital junction. No hemorragic changes were seen. In addition to this also noted to have extensive volume loss with postsurgical tumor resection involving the inferior LEFT temporal parietal region. There is abnormal soft tissue contiguous with the resection cavity extending to the skull base with mass effect upon the LEFT cerebellum and into the mastoid air cells. This all may be normal postoperative changes with packing material. No prior MRI examinations or postcontrast enhancement MRI for comparison. Further discussion with patient daughter reported she has had prior MRIs at [facility] in [place]. Records request was sent. MRI was reviewed with neurology. Findings on MRI were not consistent with physical deficits. Subjective Patient was working with speech therapy, following commands, noted to have continued dysarthria and right sided weakness. No fever, chills, nausea or vomiting. Respiratory status remained stable. No chest pain, abdominal pain or diarrhea. Medications: Reviewed: Yes Vitals/I&O/Wt Last Vital Signs Temp 97.6 F 07/04/20 11:32 Pulse 98 07/04/20 11:32 Resp 18 07/04/20 11:32 BP 135/76 07/04/20 11:32 Pulse Ox 98 07/04/20 11:32 07/03/20 07/04/20 07/04/20 22:59 06:59 14:59 Intake Total 311.667 / 311.667 100 / 692.220 4938 / 2150 Output Total 525 / 525 Balance 311.667 / 311.667 -425 / -027.972 0394 / 2150 Physical Exam Narrative: EXAM NARRATIVE: General- chronically ill-appearing elderly HEENT- grossly unremarkable Chest- Non-labored respiration on 02 via NC CVS :NSR ABD : S/p Peg EXT : no edema Neuro: Right UE/LE weakness Urinary Catheter Management^: Lance: Cath Placed During This Visit: yes Reason for Continuing Indwelling Catheter: Acute Urinary Retention or Obstruction Urinary Catheter Date of Insertion: 07/03/20 Data : 07/04/20 06:56 07/04/20 06:56 Micro: Microbiology 07/03/20 10:08 Urine Culture - Preliminary Urine,Clean Catch Gram Negative Rods 07/03/20 15:28 Blood Culture - Preliminary Blood SPECIMEN COLLECTED 07/03/20 15:24 Blood Culture - Preliminary Blood SPECIMEN COLLECTED A&P Assessment and plan (1) Aspiration pneumonia: Status: Acute (2) Expressive aphasia: Status: Acute (3) Recurrent neoplasm of brain: Status: Acute (4) Dysphagia: Status: Acute (5) S/P percutaneous endoscopic gastrostomy (PEG) tube placement: Status: Acute (6) Acute hypoxemic respiratory failure: Status: Acute (7) Hyperlipidemia associated with type 2 diabetes mellitus: Status: Acute (8) Vitamin D deficiency: Status: Acute (9) Diabetes mellitus, type II: Status: Acute (10) Hypothyroid: Status: Acute Acute Encephalopathy with speech abnormality(Dysarthria) and right sided weakness - Sx started 06/29 - Etiology likely multi-factorial - Brain tumor recurrence vs CVA vs infectious from uti/pneumonia - CT head w/o contrast - Mass measuring 13 x 17 mm, No recent imaging to compare to. No evidence of acute hemorrhage - MRI brain - suspected tiny area of diffusion restriction on left with abnormal soft tissue extending to skull base with mass effect on left cerebellum. - Records request for prior imaging sent to [facility] - Continue eliquis 5 mg PO BID - Lipitor 20 mg PO qhs added - Holding anti-hypertensive for now - Follow up on ECHO - Consider CTA head & neck in AM - Continue neuro-checks - Continue ST/PT/OT Acute Hypoxic Respiratory Failure suspected aspiration pneumonia - On 15L via NRB during admit - weaned to 2L of o2 via NC - Sputum gram stain and culture - if possible to obtain - S/p Ciprofloxacin/Clindamycin in ER - Continue Rocephin 2g IV daily plus Flagyl 500mg IV q8hr - Blood culture x 2 in ER - NGTD - High - risk for c-diff recurrence - continue pro-biotics - Repeat chest -xray in AM Gram negative Urinary tract infection - UA positive for nitrates, leuk esterace, WBC, 2+ bacteria - Ucx - > Gram negative rods - Follow up on final organism and susceptibilities - Continue Rocephin 2g IV q24hr - Abx as noted above Insulin Dependent Diabetes - Sliding scale insulin - BS checks Q6hr Recent C-Diff Colitis - Tx with Vancomycin - No current diarrhea Dysphagia / hx of Vocal cord dysfunction - Recent PEG tube placement - Abdominal x-ray in AM - Dietary consult - Tube feeding recommendation - Resume tube feedings in am - No clear evidence of insertion site infection - Recent laryngoplasty on 02/2020 by ENT Paroxysmal Atrial Fibrillation with NVR - On Eliquis 5 mg PO Q12hr - Holding rate control meds. Gasteroesophageal reflux disease - Pepcid 20 mg IV BID Prognosis : Fair Attestations Medical Necessity Statement*: Will require further hospitalization for management of an infection and completion of neurological workup. Time Spent in Patient Care: Greater than 35 minutes (>than 50% of time spent in counselling and/or direct pt care on unit). Coding Level of Care Code Acute Public Health Officer for [facility] Fwd Diagnoses Aspiration pneumonia J69.0 Expressive aphasia R47.01 Recurrent neoplasm of brain D49.6 Dysphagia R13.10 S/P percutaneous endoscopic gastrostomy (PEG) tube placement Z93.1 Acute hypoxemic respiratory failure J96.01 Hyperlipidemia associated with type 2 diabetes mellitus E11.69; E78.5 Vitamin D deficiency E55.9 Diabetes mellitus, type II E11.9 Hypothyroid E03.9
[2020-07-04] MEDS: cefTRIAXone 2,000 MG in sodium chloride 0.9% (plus) 50 ML 100 MG IV (16:22)
[2020-07-04 16:51] LABS: Glucose Point of Care 160 mg/dL (70-110)
[2020-07-04 20:47] LABS: Glucose Point of Care 140 mg/dL (70-110)
[2020-07-04] MEDS: atorvastatin 40 mg Tablet 20 MG PO (20:57)
[2020-07-04] MEDS: apixaban 5 mg Tablet PEG-TUBE (20:57)
[2020-07-05 03:33] VITALS: BP 145/78; PULSE 81; RESP 24; TEMP 36.9; O2SAT 95
[2020-07-05] MEDS: famotidine 20 mg/2 mL INJ IVP ×2 (04:38→16:11)
[2020-07-05] MEDS: levothyroxine 100 mcg Tablet PEG-TUBE (05:42)
[2020-07-05] MEDS: metroNIDAZOLE IV 500 MG/100 ML PREMIX 100 MG IV ×3 (06:41→23:44)
--- NOTE | 2020-07-05 07:00 | XR_ITS ---
WS: [id number] Abdomen series: PA CHEST AND 2 VIEWS OF THE ABDOMEN HISTORY: PEG tube eval, pneumonia COMPARISON: 06/09/2020 CT. Hyperexpanded lungs from emphysema. There is a small LEFT pleural effusion which has slightly increas ed since 07/03/2020. No free air beneath the diaphragm. There is a PEG tube positioned in the LEFT upper abdomen. Radiographically no change in position. [place] el gas pattern is appropriate. Prior cholecystectomy. XR/XR acute abdomen series [id number] IMPRESSION: 1. Small LEFT pleural effusion with slight increase in size since 07/03/2020. 2. No change in position of the PEG tube.
--- NOTE | 2020-07-05 07:10 | PC.NURSE ---
pt off floor to X-ray
[2020-07-05 07:26] LABS: Glucose Point of Care 125 mg/dL (70-110)
--- NOTE | 2020-07-05 07:30 | PC.NURSE ---
pt back on floor from X-ray
[2020-07-05 08:00] VITALS: BP 156/76; PULSE 89; RESP 17; TEMP 36.6; O2SAT 95
[2020-07-05] MEDS: sodium chloride 0.9% 1,000 ML 100 ML IV ×2 (08:28→22:00)
[2020-07-05] MEDS: lactobacillus 1 Tablet 1 TAB PEG-TUBE ×3 (08:30→21:21)
[2020-07-05] MEDS: apixaban 5 mg Tablet PEG-TUBE ×2 (08:30→21:21)
[2020-07-05 08:51] LABS: Basophils # 0.1 10^3/uL (0.0-0.1); Basophils % 0.6 %; Eosinophils # 0.4 10^3/uL (0.0-0.8); Eosinophils % 5.3 %; Hematocrit 39.6 % (37.0-47.0); Hemoglobin 12.3 g/dL (11.5-15.3); Lymphocytes % 11.9 %; Mean Corpuscular HGB Conc 31.1 g/dL (30.0-36.0); Mean Corpuscular Hemoglobin 28.9 pg (28.0-34.0); Mean Corpuscular Volume 93.2 fL (81-99); Mean Platelet Volume 11.4 fL (7.4-10.4); Monocytes # 0.5 10^3/uL (0.2-0.9); Monocytes % 6.5 %; Neutrophils # 6.21 10^3/uL (1.8-7.7); Neutrophils % 75.2 %; Nucleated Red Blood Cells % 0 %; Platelet Count 294 10^3/cmm (130-400); Red Blood Count 4.25 10^6/uL (4.1-5.3); Red Cell Distribution Width 14.6 % (12.1-15.1); White Blood Count 8.3 10^3/uL (4.0-10.0)
[2020-07-05 09:09] VITALS: PULSE 78; RESP 18; O2SAT 98
[2020-07-05 09:24] LABS: Alanine Aminotransferase 7 U/L (0-33); Alkaline Phosphatase 86 IU/L (35-105); Anion Gap 14.2 (5-19); Aspartate Amino Transferase 15 U/L (0-32); Blood Urea Nitrogen 26 mg/dL (8-23); Calcium 8.5 mg/dL (8.5-10.5); Carbon Dioxide 26 mmol/L (22-29); Chloride 102 mmol/L (98-107); Globulin 2.6 g/dL (1.3-4.6); Glucose 113 mg/dL (65-115); Osmolality Calculated 294 mOsm/kg (285-295); Potassium 3.2 mmol/L (3.5-5.1); Sodium 139 mmol/L (136-145); Total Bilirubin 0.4 mg/dL (0.15-1.2); Total Protein 5.6 g/dL (6.6-8.7)
[2020-07-05 11:12] LABS: Glucose Point of Care 127 mg/dL (70-110)
[2020-07-05 11:40] VITALS: BP 168/81; PULSE 94; RESP 17; TEMP 36.8; O2SAT 96
[2020-07-05 15:29] VITALS: BP 168/93; PULSE 81; RESP 17; TEMP 36.6; O2SAT 97
[2020-07-05] MEDS: cefTRIAXone 2,000 MG in sodium chloride 0.9% (plus) 50 ML 100 MG IV (16:11)
--- NOTE | 2020-07-05 16:59 | PM.PN ---
Subjective Subjective: Interval history: 80-year-old female with a past medical history significant for reported vocal cord paralysis s/p laryngoscopy with b/l true vocal cord injection/Laryngoplasty on 02/2020, insulin-dependent diabetes mellitus, diabetic neuropathy, hypertension, gastroesophageal reflux disease, dyslipidemia, hypothyroidism, gastric bypass, cholecystectomy and brain tumor which was initialy resected however noted to have recurrence s/p whole brain radiation x 1 ( 1 yr prior) who was brought to ER due to altered mental status. Patient was recently admitted to [facility] [place] from 06/09 to 06/11 during which time she was suspected to have ascending cholengitis and transferred to [facility] for ERCP. Also during this hospitalization was noted to have new-onset atrial fibrillation and clostridium dificile colitis. Per daughter at [facility] she was tx with IV antibiotics. She is unclear if ERCP was done. Prior to discharge patient was noted to have dysphagia and high risk for aspiration during which time a PEG tube was placed. Patient was stable until during which time she was found to be confused with dysarthria. Over the next few days she was noted to be increasingly confused. Lab work up at [facility] had shown hypernatremia and UTI which was tx with antibiotics. Unclear if patient was noted to have respiratory distress however was placed on oxygen. She was noted to have a productive cough which started after patient was resumed on oral intake despite PEG tube/tube feedings. Arrived to ER today on 15L via NRB. Per daughter patient was comprehending questions and following commands however not able to respond. Laboratory work up on arrival to ER today showed a wbc of 8.6, Hb of 13.0, hct of 42.5 and a platelet count of 273. Sodium of 131, potassium of 4.8 , chloride of 91, bicarbonate of 31, BUN of 34 and a creatinine of 0.6. ABG of 7.45, pCO2 of 46.7, p02 of 81 and a bicarb of 32.4 on 15L via NRB. Lactic acid of 1.4 Troponin of 22 baseline and a repeat of 21.10 at 120 min. Delta T-T negative 0.90. UA showed nitrite positive, 2+ leukocyte esterace, numerous WBC adn 4+ bacteria. Chest x-ray showed very small b/l pleural effusions vs pleural thickening and left basilar sub-segmental atelectasis. Head CT was also performed which showed large resection cavity in the LEFT temporoparietal region is again evident and prominent soft tissue density at the resection site measuring 13 x 17 mm. Possible recurrence of brain tumor. In ER patient was given clindamycin 600mg IV x 1 for suspected aspiration pneumonia. At the time of my eval patient was noted to have right sided weakness which per daughter at bedside may have been new and could have started on with speech abnormality. Antibiotics were changed to Rocephin 2g IV daily plus flagyl 500mg IV daily. Procalcitonin however was negative. Blood culture had not shown any growth. Urine culture however did grow gram negative rods. Leukocytosis increased to 11. Remained afebrile however. In addition to this patient was initiated on stroke protocol as well. Was continued on Eliquis 5mg Per peg BID, lipitor 40mg per peg was continued. MRI Brain was obtained which showed tiny diffusion- weighted abnormality suspicious for small acute infarct involving left parieto-occipital junction. No hemorragic changes were seen. In addition to this also noted to have extensive volume loss with postsurgical tumor resection involving the inferior LEFT temporal parietal region. There is abnormal soft tissue contiguous with the resection cavity extending to the skull base with mass effect upon the LEFT cerebellum and into the mastoid air cells. This all may be normal postoperative changes with packing material. No prior MRI examinations or postcontrast enhancement MRI for comparison. Further discussion with patient daughter reported she has had prior MRIs at [facility] in [place]. Records request was sent. MRI was reviewed with neurology. Findings on MRI were not consistent with physical deficits. Subjective 07/04 Patient was working with speech therapy, following commands, noted to have continued dysarthria and right sided weakness. No fever, chills, nausea or vomiting. Respiratory status remained stable. No chest pain, abdominal pain or diarrhea. 07/05 overnight patient was noted to have shown significant improvement in speech and right sided weakness. Speech was improving and more coherant this am. No fever, chills, nausea or vomiting. No diarrhea. Medications: Reviewed: Yes Vitals/I&O/Wt Last Vital Signs Temp 97.8 F 07/05/20 15:29 Pulse 81 07/05/20 15:29 Resp 17 07/05/20 15:29 BP 168/93 07/05/20 15:29 Pulse Ox 97 07/05/20 15:29 07/05/20 07/05/20 07/05/20 06:59 14:59 22:59 Intake Total 100 / 3350 1131.667 / 1131.667 100 / 1231.667 Output Total 350 / 800 350 / 350 Balance -250 / 2550 1131.667 / 1131.667 -250 / 881.667 Physical Exam Narrative: EXAM NARRATIVE: General- chronically ill-appearing elderly HEENT- grossly unremarkable Chest- Non-labored respiration on 02 via NC CVS :NSR ABD : S/p Peg EXT : no edema Neuro: Right UE/LE weakness Urinary Catheter Management^: Hernandez: Cath Placed During This Visit: yes Reason for Continuing Indwelling Catheter: Acute Urinary Retention or Obstruction Urinary Catheter Date of Insertion: 07/03/20 Data : 07/05/20 07:32 07/05/20 07:32 Micro: Microbiology 07/03/20 10:08 Urine Culture - Final Urine,Clean Catch Klebsiella pneumoniae 07/03/20 15:28 Blood Culture - Preliminary Blood NEGATIVE TO DATE 07/03/20 15:24 Blood Culture - Preliminary Blood NEGATIVE TO DATE A&P Assessment and plan (1) Aspiration pneumonia: Status: Acute (2) Expressive aphasia: Status: Acute (3) Recurrent neoplasm of brain: Status: Acute (4) Dysphagia: Status: Acute (5) S/P percutaneous endoscopic gastrostomy (PEG) tube placement: Status: Acute (6) Acute hypoxemic respiratory failure: Status: Acute (7) Hyperlipidemia associated with type 2 diabetes mellitus: Status: Acute (8) Vitamin D deficiency: Status: Acute (9) Diabetes mellitus, type II: Status: Acute (10) Hypothyroid: Status: Acute Acute Encephalopathy with speech abnormality(Dysarthria) and right sided weakness suspected Acute CVA - Sx started 06/29 - Etiology likely multi-factorial - Brain tumor recurrence vs CVA vs infectious from uti/pneumonia - CT head w/o contrast - Mass measuring 13 x 17 mm, No recent imaging to compare to. No evidence of acute hemorrhage - MRI brain - suspected tiny area of diffusion restriction on left with abnormal soft tissue extending to skull base with mass effect on left cerebellum. - Records request for prior imaging sent to [facility] - pending - Continue eliquis 5 mg PO BID - Lipitor 20 mg PO qhs added - Holding anti-hypertensive for now - Follow up on ECHO - pending - Carotid doppler ordered - Continue neuro-checks - Continue ST/PT/OT Hypokalemia - K 3.2 - KCL 40 MEQ Per PEG x 1 - Repeat labs in am Acute Hypoxic Respiratory Failure suspected aspiration pneumonia - On 15L via NRB during admit - weaned to 2L of o2 via NC - Sputum gram stain and culture - if possible to obtain - S/p Ciprofloxacin/Clindamycin in ER - Continue Rocephin 2g IV daily plus Flagyl 500mg IV q8hr - Blood culture x 2 in ER - NGTD - High - risk for c-diff recurrence - continue pro-biotics - Repeat chest -xray prior to discharge - Wean oxygen to RA K. Pneumonia Urinary tract infection - UA positive for nitrates, leuk esterace, WBC, 2+ bacteria - Ucx - > K. Pneumonia - Continue Rocephin 2g IV q24hr - Will tx with 7 days of abx - Will d/c hernandez and voiding trials Insulin Dependent Diabetes - Sliding scale insulin - BS checks Q6hr Recent C-Diff Colitis - Tx with Vancomycin - No current diarrhea Dysphagia / hx of Vocal cord dysfunction - Recent PEG tube placement - Dietary consult - Tube feeding recommendation - Resume tube feedings via pump, monitor residuals - No clear evidence of insertion site infection - Recent laryngoplasty on 02/2020 by ENT - Follow up outpatient with ENT Paroxysmal Atrial Fibrillation with NVR - On Eliquis 5 mg PO Q12hr - Holding rate control meds. Gasteroesophageal reflux disease - Pepcid 20 mg IV BID Prognosis : Fair Disposition Case management working on alternative snf facility placement once stable for discharge. Attestations Medical Necessity Statement*: Will require further hospitalization for management of altered mental status, CVA and hypokalemia Time Spent in Patient Care: Greater than 35 minutes (>than 50% of time spent in counselling and/or direct pt care on unit). Coding Level of Care Code Acute Telephone Interceptor Operator for g Fwd Diagnoses Aspiration pneumonia J69.0 Expressive aphasia R47.01 Recurrent neoplasm of brain D49.6 Dysphagia R13.10 S/P percutaneous endoscopic gastrostomy (PEG) tube placement Z93.1 Acute hypoxemic respiratory failure J96.01 Hyperlipidemia associated with type 2 diabetes mellitus E11.69; E78.5 Vitamin D deficiency E55.9 Diabetes mellitus, type II E11.9 Hypothyroid E03.9
--- NOTE | 2020-07-05 17:10 | USCV_ITS ---
Kaur Garland Age: 80 Gender: F : 1940 Exam Date: 07/05/2020 17:28 Ordering Phys: Ricco Young MD Technologist: [place] [facility] [place]: CVA Risk Factors: Previous Vascular Surgery: Right Brachial BP: / Left Brachial BP: / Right Left Velocity (cm/s) Spectral Plaque Velocity (cm/s) Spectral Plaque Syst/Diast Broadening Syst/Diast Broadening 52.80/ 10.10 Prox CCA 49.50 / 9.80 48.90/ 8.60 Mid CCA 47.50 / 10.40 67.40/ 13.90 Distal CCA 58.40 / 12.90 43.10/ 10.60 Prox ICA 69.20 / 19.30 82.90/ 24.00 Mid ICA 72.70 / 18.40 96.60/ 17.80 Distal ICA 85.80 / 24.60 82.90 ECA 92.00 1.98 ICA/CCA 1.80 Antegrade Vertebral Antegrade 42.70/ 10.90 cm/s 42.40/ 10.40 cm/s Tri Subclavian Tri 92.90 97.00 FINDINGS Comparison: none available. No significant elevation of systolic or diastolic velocities. Waveforms are normal. Mixture of mild calcified and noncalcified plaque in the bifurcations. Bilateral antegrade vertebral arteries. CONCLUSIONS Bilateral ICA stenosis less than 50%. Dr. Tracee Aguilar DO (Electronically Signed) Final Date: 06 July 2020 08:37 S
[2020-07-05 17:18] LABS: Glucose Point of Care 107 mg/dL (70-110)
[2020-07-05] MEDS: potassium chloride ER 20 mEq Tablet 40 MEQ PEG-TUBE (17:33)
[2020-07-05 19:52] VITALS: BP 162/79; PULSE 80; RESP 18; TEMP 36.5; O2SAT 92
[2020-07-05 20:25] LABS: Glucose Point of Care 90 mg/dL (70-110)
--- NOTE | 2020-07-05 20:33 | USCV_ITS ---
Kaur Garland Age: 80 Gender: F : 1940 Exam Date: 07/05/2020 06:03 Ordering Phys: Ricco Young MD Technologist: Kaelyn Austin [place]am [place] [facility] [place] Indication: CVA BP: 145 / 78 HR: 92 Rhythm: Sinus Technical Quality: Adequate MEASUREMENTS (Male / Female) Normal Values 2D ECHO LV Diastolic Diameter PLAX 3.0 cm 4.2 - 5.9 / 3.9 - 5.3 cm LV Systolic Diameter PLAX 2.1 cm LV Chamber Size 3.1 cm IVS Diastolic Thickness 1.2 cm 0.6 - 1.0 / 0.6 - 0.9 cm IVS Systolic Thickness 1.6 cm LVPW Diastolic Thickness 1.8 cm 0.6 - 1.0 / 0.6 - 0.9 cm LVPW Systolic Thickness 1.8 cm RV Chamber Size 4.0 cm LVOT Diameter 2.0 cm LV Ejection Fraction 2D Teich 57.0 % LV Ejection Fraction MOD 2C 55.4 % LV Ejection Fraction 2C AL 54.0 % LA Diameter 3.4 cm LA Width 4.3 cm LA Height 4.9 cm RA Width 3.8 cm RA Height 4.1 cm Aorta at Sinotubular Diameter 2.7 cm M-MODE LV Diastolic Diameter MM 5.3 cm 4.2 - 5.9 / 3.9 - 5.3 cm LV Systolic Diameter MM 3.2 cm LV Ejection Fraction MM Teich 69.1 % IVS Diastolic Thickness MM 1.4 cm 0.6 - 1.0 / 0.6 - 0.9 cm IVS Systolic Thickness MM 1.7 cm LVPW Diastolic Thickness MM 1.6 cm 0.6 - 1.0 / 0.6 - 0.9 cm LVPW Systolic Thickness MM 2.0 cm Aortic Annulus Diameter 3.3 cm LA Ao Ratio MM 1.0 MV E Point Septal Separation 0.7 cm DOPPLER AV Peak Velocity 163.7 cm/s LVOT Peak Velocity 110.7 cm/s AV Area Cont Eq vti 2.4 cm squared AV Area Cont Eq pk 2.2 cm squared MV Area PHT 3.7 cm squared Mitral E to A Ratio 0.8 MV E' Velocity 46.0 cm/s Mitral E to MV E' Ratio 9.5 Mitral E to LV E' Lateral Ratio 10.5 Mitral E to LV E' Septal Ratio 8.7 TR Peak Velocity 272.7 cm/s TR Peak Gradient 29.7 mmHg TR Mean Velocity 218.2 cm/s TR Mean Gradient 20.3 mmHg TR Velocity Time Integral 83.6 cm TV Peak E Velocity 46.0 cm/s Right Atrial Pressure 3.0 mmHg Pulmonary Artery Systolic Pressu 32.7 mmHg PV Peak Velocity 71.0 cm/s RV Acceleration Time 0.1 s RV Ejection Time 0.4 s RV AcT/ET 0.2 FINDINGS Left Ventricle Normal left ventricular size, systolic function and mildly increased wall thickness, with no regional wall motion abnormalities. Left ventricular ejection fraction is estimated at 60 %. Normal diastolic function. Right Ventricle Normal right ventricular size and systolic function. Right ventricular systolic pressure 32.7 mmHg. Right Atrium Normal right atrial size. Left Atrium Mildly increased left atrial size. Mitral Valve Mild mitral annular calcification. No mitral valve stenosis. No mitral valve regurgitation. Aortic Valve Structurally normal trileaflet aortic valve. No aortic valve stenosis. No aortic valve regurgitation. Tricuspid Valve Structurally normal tricuspid valve. Trace tricuspid valve regurgitation. Pulmonic Valve Pulmonic valve not well visualized. No pulmonary valve stenosis. Trace pulmonary valve regurgitation. Pericardium No pericardial effusion. Aorta Normal size aortic root and proximal ascending aorta. CONCLUSIONS 1.Normal left ventricular size, systolic function and mildly increased wall thickness, with no regional wall motion abnormalities. Left ventricular ejection fraction is estimated at 60 %. Normal diastolic function. 2. Mildly increased left atrial size. 3. Upper normal pulmonary artery pressure. 4. No significant valvular abnormality. 5. No prior similar studies to compare. Emeli Huggins MD (Electronically Signed) Final Date: 05 July 2020 21:44 S
[2020-07-05] MEDS: atorvastatin 40 mg Tablet 20 MG PO (21:21)
[2020-07-06] VITALS (9 sets, daily range): BP systolic 154–183; BP diastolic 52–92; PULSE 80–96; RESP 16–20; TEMP 36.5–37.3; O2SAT 91–96
[2020-07-06] MEDS: famotidine 20 mg/2 mL INJ IVP ×2 (05:36→17:52)
[2020-07-06] MEDS: levothyroxine 100 mcg Tablet PEG-TUBE (06:02)
[2020-07-06 06:17] LABS: Glucose Point of Care 79 mg/dL (70-110)
[2020-07-06 06:28] LABS: Alanine Aminotransferase 7 U/L (0-33); Alkaline Phosphatase 84 IU/L (35-105); Blood Urea Nitrogen 16 mg/dL (8-23); Calcium 8.3 mg/dL (8.5-10.5); Carbon Dioxide 20 mmol/L (22-29); Chloride 102 mmol/L (98-107); Globulin 2.3 g/dL (1.3-4.6); Glucose 77 mg/dL (65-115); Osmolality Calculated 282 mOsm/kg (285-295); Sodium 136 mmol/L (136-145); Total Bilirubin 0.4 mg/dL (0.15-1.2); Total Protein 5.3 g/dL (6.6-8.7)
[2020-07-06 06:32] LABS: Anion Gap 17.6 (5-19); Aspartate Amino Transferase 20 U/L (0-32); Potassium 3.6 mmol/L (3.5-5.1)
[2020-07-06 06:36] LABS: Basophils % 0.6 %; Eosinophils # 0.3 10^3/uL (0.0-0.8); Eosinophils % 6.8 %; Hematocrit 41.6 % (37.0-47.0); Hemoglobin 13.1 g/dL (11.5-15.3); Lymphocytes # 0.7 10^3/uL (0.8-4.8); Lymphocytes % 14.7 %; Mean Corpuscular HGB Conc 31.5 g/dL (30.0-36.0); Mean Corpuscular Hemoglobin 28.5 pg (28.0-34.0); Mean Corpuscular Volume 90.4 fL (81-99); Mean Platelet Volume 11.5 fL (7.4-10.4); Monocytes # 0.4 10^3/uL (0.2-0.9); Monocytes % 8.3 %; Neutrophils # 3.23 10^3/uL (1.8-7.7); Neutrophils % 68.7 %; Nucleated Red Blood Cells % 0 %; Platelet Count 214 10^3/cmm (130-400); Red Cell Distribution Width 14.5 % (12.1-15.1); White Blood Count 4.7 10^3/uL (4.0-10.0)
[2020-07-06] MEDS: metroNIDAZOLE IV 500 MG/100 ML PREMIX 100 MG IV ×3 (08:32→23:05)
[2020-07-06] MEDS: sodium chloride 0.9% 1,000 ML 100 ML IV ×2 (08:38→21:33)
[2020-07-06] MEDS: apixaban 5 mg Tablet PEG-TUBE ×2 (08:39→21:23)
[2020-07-06] MEDS: lactobacillus 1 Tablet 1 TAB PEG-TUBE ×3 (08:39→21:23)
--- NOTE | 2020-07-06 11:34 | PC.SOCIAL ---
*IMM*Patient received her Important message from [employer]. pt gave a copy, original signed dated and in chart.
--- NOTE | 2020-07-06 12:04 | PC.NUTR ---
NUTR TF RECOMMENDATIONS: Jevity with a goal rate of 50 ml/hr providing 1440 kcal (94%), 66 g PRO (88%), and 968 ml fluid (68%)(NEEDS). Suggest starting TF at 20 ml /hr and increase by 10 ml Q6H as tolerated till goal rate is met. Suggest 70 ml of H2O flushes Q4H to approach fluid needs or per physician. BOLUS: 5 cans daily total over 3 feedings per day with 3/4 cup H2O flush after each feeding.
--- NOTE | 2020-07-06 14:24 | P.PN_ITS ---
Subjective Subjective: Interval history: 80-year-old female with a past medical history significant for reported vocal cord paralysis s/p laryngoscopy with b/l true vocal cord injection/Laryngoplasty on 02/2020, insulin-dependent diabetes mellitus, diabetic neuropathy, hypertension, gastroesophageal reflux disease, dyslipidemia, hypothyroidism, gastric bypass, cholecystectomy and brain tumor wh ich was initialy resected however noted to have recurrence s/p whole brain radiation x 1 ( 1 yr prior) who was brought to ER due to altered mental status. Patient was recently [place] [facility] [place]09 [place] 06/11 during which time she was suspected to have ascending cholengitis and transferred to [facility] for ERCP. Also during this hospitalization was noted to have new-onset atrial fibrillation and clostridium dificile colitis. Per daughter at [facility] she was tx with IV antibiotics. She is unclear if ERCP was done. Prior to discharge patient was noted to have dysphagia and high risk for aspiration during which time a PEG tube was placed. Patient was stable until during which time she was found to be confused with dysarthria. Over the next few days she was noted to be increasingly confused. Lab work up at [facility] had shown hypernatremia and UTI which was tx with antibiotics. Unclear if patient was noted to have respiratory distress however was placed on oxygen. She was noted to have a productive cough which started after patient was resumed on oral intake despite PEG tube/tube feedings. Arrived to ER today on 15L via NRB. Per daughter patient was comprehending questions and following commands however not able to respond. Laboratory work up on arrival to ER today showed a wbc of 8.6, Hb of 13.0, hct of 42.5 and a platelet count of 273. Sodium of 131, potassium of 4.8 , chloride of 91, bicarbonate of 31, BUN of 34 and a creatinine of 0.6. ABG of 7.45, pCO2 of 46.7, p02 of 81 and a bicarb of 32.4 on 15L via NRB. Lactic acid of 1.4 Troponin of 22 baseline and a repeat of 21.10 at 120 min. Delta T-T negative 0.90. UA showed nitrite positive, 2+ leukocyte esterace, numerous WBC adn 4+ bacteria. Chest x-ray showed very small b/l pleural effusions vs pleural thickening and left basilar sub-segmental atelectasis. Head CT was also performed which showed large resection cavity in the LEFT temporoparietal region is again evident and prominent soft tissue density at the resection site measuring 13 x 17 mm. Possible recurrence of brain tumor. In ER patient was given clindamycin 600mg IV x 1 for suspected aspiration pneumonia. At the time of my eval patient was noted to have right sided weakness which per daughter at bedside may have been new and could have started on with speech abnormality. Antibiotics were changed to Rocephin 2g IV daily plus flagyl 500mg IV daily. Procalcitonin however was negative. Blood culture had not shown any growth. Urine culture however did grow gram negative rods. Leukocytosis increased to 11. Remained afebrile however. In addition to this patient was initiated on stroke protocol as well. Was continued on Eliquis 5mg Per peg BID, lipitor 40mg per peg was continued. MRI Brain was obtained which showed tiny diffusion- weighted abnormality suspicious for small acute infarct involving left parieto- occipital junction. No hemorragic changes were seen. In addition to this also noted to have extensive volume loss with postsurgical tumor resection involving the inferior LEFT temporal parietal region. There is abnormal soft tissue contiguous with the resection cavity extending to the skull base with mass effec t upon the LEFT cerebellum and into the mastoid air cells. This all may be normal postoperative changes with packing material. No prior MRI examinations or postcontrast enhancement MRI for comparison. Further discussion with patient daughter reported she has had prior MRIs at [facility] in [place]. Records request was sent. MRI was reviewed with neurology. Findings on MRI were not consistent with physical deficits. Subjective 07/04 Patient was working with speech therapy, following commands, noted to have continued dysarthria and right sided weakness. No fever, chills, nausea or vom iting. Respiratory status remained stable. No chest pain, abdominal pain or diarrhea. 07/05 overnight patient was noted to have shown significant improvement in speech and right sided weakness. Speech was improving and more coherant this am. No fever, chills, nausea or vomiting. No diarrhea. 07/06 Noted to have significant improvement overnight, no fever, chills, nausea or vomiting. No respiratory status. Medications: Reviewed: Yes Vitals/I&O/Wt Last Vital Signs Temp 99.1 F 07/06/20 20:00 Pulse 85 07/06/20 20:00 Resp 20 H 07/06/20 20:00 BP 171/81 07/06/20 20:00 Pulse Ox 92 07/06/20 20:00 07/06/20 07/06/20 07/06/20 06:59 14:59 22:59 Intake Total 100 / 2381.667 1100 / 1100 1315 / 2415 Output Total 450 / 1250 Balance -350 / 9833.017 3027 / 1100 1315 / 2415 Physical Exam Narrative: EXAM NARRATIVE: General- chronically ill-appearing elderly HEENT- grossly unremarkable Chest- Non-labored respiration on 02 via NC CVS :NSR ABD : S/p Peg EXT : no edema Neuro: Right UE/LE weakness Urinary Catheter Management^: Hernandez: Cath Placed During This Visit: yes Reason for Continuing Indwelling Catheter: Acute Urinary Retention or Obstruction Urinary Catheter Date of Insertion: 07/03/20 Data : 07/06/20 05:25 07/06/20 05:25 A&P Assessment and plan (1) Aspiration pneumonia: Status: Acute (2) Expressive aphasia: Status: Acute (3) Recurrent neoplasm of brain: Status: Acute (4) Dysphagia: Status: Acute (5) S/P percutaneous endoscopic gastrostomy (PEG) tube placement: Status: Acute (6) Acute hypoxemic respiratory failure: Status: Acute (7) Hyperlipidemia associated with type 2 diabetes mellitus: Status: Acute (8) Vitamin D deficiency: Status: Acute (9) Diabetes mellitus, type II: Status: Acute (10) Hypothyroid: Status: Acute Acute Encephalopathy with speech abnormality(Dysarthria) and right sided weakness suspected Acute CVA - Sx started 06/29 - Etiology likely multi-factorial - Brain tumor recurrence vs CVA vs infectious from uti/pneumonia - CT head w/o contrast - Mass measuring 13 x 17 mm, No recent imaging to compare to. No evidence of acute hemorrhage - MRI brain - suspected tiny area of diffusion restriction on left with abnormal soft tissue extending to skull base with mass effect on left cerebellum. - Records request for prior imaging sent to [facility] - pending - Continue eliquis 5 mg PO BID - Lipitor 20 mg PO qhs added - Follow up on ECHO - pEF - Carotid doppler - no stenosis - Continue neuro-checks - Continue ST/PT/OT - Significant improvement in speech and weakness. Hypokalemia - replace as needed. Acute Hypoxic Respiratory Failure suspected aspiration pneumonia - On 15L via NRB during admit - weaned to 2L of o2 via NC - Sputum gram stain and culture - if possible to obtain - S/p Ciprofloxacin/Clindamycin in ER - Continue Rocephin 2g IV daily plus Flagyl 500mg IV q8hr - Blood culture x 2 in ER - NGTD - High - risk for c-diff recurrence - continue pro-biotics - Repeat chest -xray prior to discharge - Wean oxygen to RA K. Pneumonia Urinary tract infection - UA positive for nitrates, leuk esterace, WBC, 2+ bacteria - Ucx - > K. Pneumonia - Continue Rocephin 2g IV q24hr - Will tx with 7 days of abx - Will d/c hernandez and voiding trials Insulin Dependent Diabetes - Sliding scale insulin - BS checks Q6hr Recent C-Diff Colitis - Tx with Vancomycin - No current diarrhea Dysphagia / hx of Vocal cord dysfunction - Recent PEG tube placement - Dietary consult - Tube feeding recommendation - Resume tube feedings via pump, monitor residuals - No clear evidence of insertion site infection - Recent laryngoplasty on 02/2020 by ENT - Follow up outpatient with ENT Paroxysmal Atrial Fibrillation with NVR - On Eliquis 5 mg PO Q12hr - Holding rate control meds. Gasteroesophageal reflux disease - Pepcid 20 mg IV BID Prognosis : Fair Attestations Medical Necessity Statement*: Require further hospitalization for discharge placement and iV abx Time Spent in Patient Care: Greater than 35 minutes (>than 50% of time spent in counselling and/or direct pt care on unit) . Coding Level of Care Code Acute Chick Sexer for [facility] [place] Fwd Diagnoses Aspiration pneumonia J69.0 Expressive aphasia R47.01 Recurrent neoplasm of brain D49.6 Dysphagia R13.10 S/P percutaneous endoscopic gastrostomy (PEG) tube placement Z93.1 Acute hypoxemic respiratory failure J96.01 Hyperlipidemia associated with type 2 diabetes mellitus E11.69; E78.5 Vitamin D deficiency E55.9 Diabetes mellitus, type II E11.9 Hypothyroid E03.9
[2020-07-06] MEDS: cefTRIAXone 2,000 MG in sodium chloride 0.9% (plus) 50 ML 100 MG IV (17:51)
[2020-07-06 18:32] LABS: Glucose Point of Care 95 mg/dL (70-110)
[2020-07-06] MEDS: atorvastatin 40 mg Tablet 20 MG PO (21:23)
[2020-07-06 21:47] LABS: Glucose Point of Care 99 mg/dL (70-110)
[2020-07-07] VITALS (10 sets, daily range): BP systolic 153–181; BP diastolic 82–98; PULSE 74–97; RESP 17–22; TEMP 36.4–36.9; O2SAT 91–96
[2020-07-07] MEDS: levothyroxine 100 mcg Tablet PEG-TUBE (05:23)
[2020-07-07] MEDS: famotidine 20 mg/2 mL INJ IVP ×2 (05:56→18:44)
[2020-07-07 05:58] LABS: Basophils # 0.1 10^3/uL (0.0-0.1); Basophils % 0.8 %; Eosinophils # 0.3 10^3/uL (0.0-0.8); Eosinophils % 4.6 %; Hemoglobin 12.2 g/dL (11.5-15.3); Lymphocytes % 16.1 %; Mean Corpuscular HGB Conc 31.3 g/dL (30.0-36.0); Mean Corpuscular Hemoglobin 28.2 pg (28.0-34.0); Mean Corpuscular Volume 90.3 fL (81-99); Mean Platelet Volume 10.6 fL (7.4-10.4); Monocytes # 0.7 10^3/uL (0.2-0.9); Neutrophils # 3.86 10^3/uL (1.8-7.7); Neutrophils % 65.5 %; Nucleated Red Blood Cells % 0 %; Platelet Count 289 10^3/cmm (130-400); Red Blood Count 4.32 10^6/uL (4.1-5.3); Red Cell Distribution Width 14.1 % (12.1-15.1); White Blood Count 5.9 10^3/uL (4.0-10.0)
[2020-07-07 06:08] LABS: Glucose Point of Care 173 mg/dL (70-110)
[2020-07-07 06:30] LABS: Alanine Aminotransferase < 5 U/L (0-33); Albumin Level 2.4 g/dL (3.5-5.2); Alkaline Phosphatase 70 IU/L (35-105); Anion Gap 13.9 (5-19); Aspartate Amino Transferase 13 U/L (0-32); Blood Urea Nitrogen 9 mg/dL (8-23); Calcium 7.6 mg/dL (8.5-10.5); Carbon Dioxide 24 mmol/L (22-29); Chloride 102 mmol/L (98-107); Globulin 2.3 g/dL (1.3-4.6); Glucose 164 mg/dL (65-115); Osmolality Calculated 286 mOsm/kg (285-295); Sodium 137 mmol/L (136-145); Total Bilirubin 0.3 mg/dL (0.15-1.2); Total Protein 4.7 g/dL (6.6-8.7)
[2020-07-07 06:34] LABS: Potassium 2.9 mmol/L (3.5-5.1)
[2020-07-07] MEDS: sodium chloride 0.9% 1,000 ML 100 ML IV (09:28)
[2020-07-07] MEDS: metroNIDAZOLE IV 500 MG/100 ML PREMIX 100 MG IV ×2 (09:28→16:54)
[2020-07-07] MEDS: lactobacillus 1 Tablet 1 TAB PEG-TUBE ×3 (09:29→21:37)
[2020-07-07] MEDS: apixaban 5 mg Tablet PEG-TUBE ×2 (09:29→21:38)
--- NOTE | 2020-07-07 11:55 | PC.NURSE ---
notified Dr. Young of pt blood pressure being 178/104, physician ordered for fluids to be discontinued and saline locked.
[2020-07-07 12:01] LABS: Glucose Point of Care 180 mg/dL (70-110)
[2020-07-07 17:15] LABS: Glucose Point of Care 148 mg/dL (70-110)
--- NOTE | 2020-07-07 18:16 | PM.PN ---
Subjective Subjective: Interval history: 80-year-old female with a past medical history significant for reported vocal cord paralysis s/p laryngoscopy with b/l true vocal cord injection/Laryngoplasty on 02/2020, insulin-dependent diabetes mellitus, diabetic neuropathy, hypertension, gastroesophageal reflux disease, dyslipidemia, hypothyroidism, gastric bypass, cholecystectomy and brain tumor which was initialy resected however noted to have recurrence s/p whole brain radiation x 1 ( 1 yr prior) who was brought to ER due to altered mental status. Patient was recently admitted to [facility] from 06/09 to 06/11 during which time she was suspected to have ascending cholengitis and transferred to [facility] for ERCP. Also during this hospitalization was noted to have new-onset atrial fibrillation and clostridium dificile colitis. Per daughter at [facility] she was tx with IV antibiotics. She is unclear if ERCP was done. Prior to discharge patient was noted to have dysphagia and high risk for aspiration during which time a PEG tube was placed. Patient was stable until during which time she was found to be confused with dysarthria. Over the next few days she was noted to be increasingly confused. Lab work up at [facility] had shown hypernatremia and UTI which was tx with antibiotics. Unclear if patient was noted to have respiratory distress however was placed on oxygen. She was noted to have a productive cough which started after patient was resumed on oral intake despite PEG tube/tube feedings. Arrived to ER today on 15L via NRB. Per daughter patient was comprehending questions and following commands however not able to respond. Laboratory work up on arrival to ER today showed a wbc of 8.6, Hb of 13.0, hct of 42.5 and a platelet count of 273. Sodium of 131, potassium of 4.8 , chloride of 91, bicarbonate of 31, BUN of 34 and a creatinine of 0.6. ABG of 7.45, pCO2 of 46.7, p02 of 81 and a bicarb of 32.4 on 15L via NRB. Lactic acid of 1.4 Troponin of 22 baseline and a repeat of 21.10 at 120 min. Delta T-T negative 0.90. UA showed nitrite positive, 2+ leukocyte esterace, numerous WBC adn 4+ bacteria. Chest x-ray showed very small b/l pleural effusions vs pleural thickening and left basilar sub-segmental atelectasis. Head CT was also performed which showed large resection cavity in the LEFT temporoparietal region is again evident and prominent soft tissue density at the resection site measuring 13 x 17 mm. Possible recurrence of brain tumor. In ER patient was given clindamycin 600mg IV x 1 for suspected aspiration pneumonia. At the time of my eval patient was noted to have right sided weakness which per daughter at bedside may have been new and could have started on with speech abnormality. Antibiotics were changed to Rocephin 2g IV daily plus flagyl 500mg IV daily. Procalcitonin however was negative. Blood culture had not shown any growth. Urine culture however did grow gram negative rods. Leukocytosis increased to 11. Remained afebrile however. In addition to this patient was initiated on stroke protocol as well. Was continued on Eliquis 5mg Per peg BID, lipitor 40mg per peg was continued. MRI Brain was obtained which showed tiny diffusion- weighted abnormality suspicious for small acute infarct involving left parieto-occipital junction. No hemorragic changes were seen. In addition to this also noted to have extensive volume loss with postsurgical tumor resection involving the inferior LEFT temporal parietal region. There is abnormal soft tissue contiguous with the resection cavity extending to the skull base with mass effect upon the LEFT cerebellum and into the mastoid air cells. This all may be normal postoperative changes with packing material. No prior MRI examinations or postcontrast enhancement MRI for comparison. Further discussion with patient daughter reported she has had prior MRIs at [facility] in [place]. Records request was sent. MRI was reviewed with neurology. Findings on MRI were not consistent with physical deficits. Subjective 07/04 Patient was working with speech therapy, following commands, noted to have continued dysarthria and right sided weakness. No fever, chills, nausea or vomiting. Respiratory status remained stable. No chest pain, abdominal pain or diarrhea. 07/05 overnight patient was noted to have shown significant improvement in speech and right sided weakness. Speech was improving and more coherant this am. No fever, chills, nausea or vomiting. No diarrhea. 07/06 Noted to have significant improvement overnight, no fever, chills, nausea or vomiting. No respiratory status. Medications: Reviewed: Yes Vitals/I&O/Wt Last Vital Signs Temp 98.4 F 07/07/20 16:02 Pulse 80 07/07/20 16:02 Resp 18 07/07/20 16:02 BP 178/85 07/07/20 16:02 Pulse Ox 95 07/07/20 16:02 07/07/20 07/07/20 07/07/20 06:59 14:59 22:59 Intake Total 100 / 2615 1250 / 1250 90 / 1340 Output Total 2750 / 2750 Balance -2650 / -135 1250 / 1250 90 / 1340 Physical Exam Narrative: EXAM NARRATIVE: General- chronically ill-appearing elderly HEENT- grossly unremarkable Chest- Non-labored respiration on via NC CVS :NSR ABD : S/p Peg EXT : no edema Neuro: Right UE/LE weakness Urinary Catheter Management^: Lance: Cath Placed During This Visit: yes Reason for Continuing Indwelling Catheter: Acute Urinary Retention or Obstruction Urinary Catheter Date of Insertion: 07/03/20 Data : 07/07/20 05:10 07/07/20 05:10 A&P Assessment and plan (1) Aspiration pneumonia: Status: Acute (2) Expressive aphasia: Status: Acute (3) Recurrent neoplasm of brain: Status: Acute (4) Dysphagia: Status: Acute (5) S/P percutaneous endoscopic gastrostomy (PEG) tube placement: Status: Acute (6) Acute hypoxemic respiratory failure: Status: Acute (7) Hyperlipidemia associated with type 2 diabetes mellitus: Status: Acute (8) Vitamin D deficiency: Status: Acute (9) Diabetes mellitus, type II: Status: Acute (10) Hypothyroid: Status: Acute Acute Encephalopathy with speech abnormality(Dysarthria) and right sided weakness suspected Acute CVA - RESOLVED - Sx started 06/29 - Etiology likely multi-factorial - Brain tumor recurrence vs CVA vs infectious from uti/pneumonia - CT head w/o contrast - Mass measuring 13 x 17 mm, No recent imaging to compare to. No evidence of acute hemorrhage - MRI brain - suspected tiny area of diffusion restriction on left with abnormal soft tissue extending to skull base with mass effect on left cerebellum. - Records request for prior imaging sent to [facility] - pending - Continue eliquis 5 mg PO BID - Lipitor 20 mg PO qhs added - ECHO - pEF - Carotid doppler - no stenosis - Continue neuro-checks - Continue ST/PT/OT - Significant improvement in speech and weakness. - Resolved - back to baseline Hypertension - Resume Metoprolol PEG BID - Lisnopril 20 mg PEG daily - Chlorthalidone 25 mg PEG daily Hypokalemia - replace as needed. - KCL 40 MEQ IV x 1 - BMP in am Acute Hypoxic Respiratory Failure suspected aspiration pneumonia - On 15L via NRB during admit - weaned to 2L of o2 via NC - Sputum gram stain and culture - if possible to obtain - S/p Ciprofloxacin/Clindamycin in ER - Continue Rocephin 2g IV daily plus Flagyl 500mg IV q8hr - Blood culture x 2 in ER - NGTD - High - risk for c-diff recurrence - continue pro-biotics - Repeat chest -xray prior to discharge - Wean oxygen to RA - May need to D/c On oxygen K. Pneumonia Urinary tract infection - UA positive for nitrates, leuk esterace, WBC, 2+ bacteria - Ucx - > K. Pneumonia - Continue Rocephin 2g IV q24hr - Will tx with 7 days of abx Insulin Dependent Diabetes - Sliding scale insulin - BS checks Q6hr Recent C-Diff Colitis - Tx with Vancomycin - No current diarrhea Dysphagia / hx of Vocal cord dysfunction - Recent PEG tube placement - Dietary consult - Tube feeding recommendation - Resume tube feedings via pump, monitor residuals - No clear evidence of insertion site infection - Recent laryngoplasty on 02/2020 by ENT - Follow up outpatient with ENT Paroxysmal Atrial Fibrillation with NVR - On Eliquis 5 mg PO Q12hr - Metoprolol 25 mg PEG BID Gasteroesophageal reflux disease - Pepcid 20 mg IV BID DVT ppx - Eliquis 5 mg PO BID Attestations Medical Necessity Statement*: Will continue hospitalization for discharge placement arrangement Time Spent in Patient Care: Greater than 35 minutes (>than 50% of time spent in counselling and/or direct pt care on unit). Coding Level of Care Code Acute [employer] Support [employer] for Chg Fwd Diagnoses Aspiration pneumonia J69.0 Expressive aphasia R47.01 Recurrent neoplasm of brain D49.6 Dysphagia R13.10 S/P percutaneous endoscopic gastrostomy (PEG) tube placement Z93.1 Acute hypoxemic respiratory failure J96.01 Hyperlipidemia associated with type 2 diabetes mellitus E11.69; E78.5 Vitamin D deficiency E55.9 Diabetes mellitus, type II E11.9 Hypothyroid E03.9
[2020-07-07] MEDS: cefTRIAXone 2,000 MG in sodium chloride 0.9% (plus) 50 ML 100 MG IV (18:21)
[2020-07-07] MEDS: potassium chloride premix 100 ML 25 MEQ IV (19:04)
[2020-07-07] MEDS: lidocaine 1% INJ 20 mL 5 ML IV (19:07)
[2020-07-07] MEDS: lisinopril 20 mg Tablet PEG-TUBE (19:07)
[2020-07-07 20:58] LABS: Glucose Point of Care 145 mg/dL (70-110)
[2020-07-07] MEDS: metoprolol tartrate 25 mg Tablet PEG-TUBE (21:38)
[2020-07-07] MEDS: atorvastatin 40 mg Tablet 20 MG PO (21:38)
[2020-07-08] VITALS (8 sets, daily range): BP systolic 157–173; BP diastolic 83–98; PULSE 65–103; RESP 16–18; TEMP 36.4–36.9; O2SAT 90–94
[2020-07-08] MEDS: metroNIDAZOLE IV 500 MG/100 ML PREMIX 100 MG IV ×3 (00:31→14:57)
[2020-07-08] MEDS: levothyroxine 100 mcg Tablet PEG-TUBE (05:07)
[2020-07-08] MEDS: famotidine 20 mg/2 mL INJ IVP ×2 (05:07→16:16)
[2020-07-08 06:28] LABS: Basophils # 0.1 10^3/uL (0.0-0.1); Basophils % 0.7 %; Eosinophils # 0.2 10^3/uL (0.0-0.8); Eosinophils % 2.9 %; Hematocrit 39.5 % (37.0-47.0); Hemoglobin 12.5 g/dL (11.5-15.3); Lymphocytes # 1.5 10^3/uL (0.8-4.8); Lymphocytes % 20.8 %; Mean Corpuscular HGB Conc 31.6 g/dL (30.0-36.0); Mean Corpuscular Hemoglobin 27.9 pg (28.0-34.0); Mean Corpuscular Volume 88.2 fL (81-99); Mean Platelet Volume 10.7 fL (7.4-10.4); Monocytes # 0.8 10^3/uL (0.2-0.9); Neutrophils # 4.43 10^3/uL (1.8-7.7); Neutrophils % 62.1 %; Nucleated Red Blood Cells % 0 %; Platelet Count 327 10^3/cmm (130-400); Red Blood Count 4.48 10^6/uL (4.1-5.3); Red Cell Distribution Width 14.1 % (12.1-15.1); White Blood Count 7.2 10^3/uL (4.0-10.0)
[2020-07-08 06:35] LABS: Alanine Aminotransferase < 5 U/L (0-33); Albumin Level 2.6 g/dL (3.5-5.2); Alkaline Phosphatase 73 IU/L (35-105); Anion Gap 11.2 (5-19); Aspartate Amino Transferase 14 U/L (0-32); Blood Urea Nitrogen 8 mg/dL (8-23); Calcium 7.9 mg/dL (8.5-10.5); Carbon Dioxide 27 mmol/L (22-29); Chloride 102 mmol/L (98-107); Globulin 2.3 g/dL (1.3-4.6); Glucose 198 mg/dL (65-115); Osmolality Calculated 288 mOsm/kg (285-295); Potassium 3.2 mmol/L (3.5-5.1); Sodium 137 mmol/L (136-145); Total Bilirubin 0.4 mg/dL (0.15-1.2); Total Protein 4.9 g/dL (6.6-8.7)
--- NOTE | 2020-07-08 06:39 | PC.NURSE ---
Shift Summary Patient has rested well throughout the night. Now receiving glucerna through PEG, r/t no jevity in hospital, order received from Dr. Leggett. Patient has been incontinent of bowel movement twice, second more runny than the first. No complaints otherwise.
[2020-07-08 06:56] LABS: Glucose Point of Care 193 mg/dL (70-110)
[2020-07-08] MEDS: lactobacillus 1 Tablet 1 TAB PEG-TUBE ×3 (08:20→21:09)
[2020-07-08] MEDS: chlorthalidone 25 mg Tablet PO (08:20)
[2020-07-08] MEDS: lisinopril 20 mg Tablet PEG-TUBE (08:20)
[2020-07-08] MEDS: apixaban 5 mg Tablet PEG-TUBE ×2 (08:20→21:08)
[2020-07-08] MEDS: metoprolol tartrate 25 mg Tablet PEG-TUBE ×2 (08:22→21:09)
[2020-07-08 11:09] LABS: Glucose Point of Care 142 mg/dL (70-110)
--- NOTE | 2020-07-08 12:56 | DCPLANNER ---
Pg 2 of IM updated and reviewed with pt and daughter. No questions, copy provided.
[2020-07-08] MEDS: cefTRIAXone 2,000 MG in sodium chloride 0.9% (plus) 50 ML 100 MG IV (16:16)
[2020-07-08 16:26] LABS: Glucose Point of Care 127 mg/dL (70-110)
--- NOTE | 2020-07-08 16:33 | P.PN_ITS ---
Subjective Subjective: Interval history: 80-year-old female with a past medical history significant for reported vocal cord paralysis s/p laryngoscopy with b/l true vocal cord injection/Laryngoplasty on 02/2020, insulin-dependent diabetes mellitus, diabetic neuropathy, hypertension, gastroesophageal reflux disease, dyslipidemia, hypothyroidism, gastric bypass, cholecystectomy and brain tumor wh ich was initialy resected however noted to have recurrence s/p whole brain radiation x 1 ( 1 yr prior) who was brought to ER due to altered mental status. Patient was recently admitted to [facility] from 06/09 to 06/11 during which time she was suspected to have ascending cholengitis and transferred to [facility] for ERCP. Also during this hospitalization was noted to have new-onset atrial fibrillation and clostridium dificile colitis. Per daughter at [facility] she was tx with IV antibiotics. She is unclear if ERCP was done. Prior to discharge patient was noted to have dysphagia and high risk for aspiration during which time a PEG tube was placed. Patient was stable until during which time she was found to be confused with dysarthria. Over the next few days she was noted to be increasingly confused. Lab work up at [facility] had shown hypernatremia and UTI which was tx with antibiotics. Unclear if patient was noted to have respiratory distress however was placed on oxygen. She was noted to have a productive cough which started after patient was resumed on oral intake despite PEG tube/tube feedings. Arrived to ER today on 15L via NRB. Per daughter patient was comprehending questions and following commands however not able to respond. Laboratory work up on arrival to ER today showed a wbc of 8.6, Hb of 13.0, hct of 42.5 and a platelet count of 273. Sodium of 131, potassium of 4.8 , chloride of 91, bicarbonate of 31, BUN of 34 and a creatinine of 0.6. ABG of 7.45, pCO2 of 46.7, p02 of 81 and a bicarb of 32.4 on 15L via NRB. Lactic acid of 1.4 Troponin of 22 baseline and a repeat of 21.10 at 120 min. Delta T-T negative 0.90. UA showed nitrite positive, 2+ leukocyte esterace, numerous WBC adn 4+ bacteria. Chest x-ray showed very small b/l pleural effusions vs pleural thickening and left basilar sub-segmental atelectasis. Head CT was also performed which showed large resection cavity in the LEFT temporoparietal region is again evident and prominent soft tissue density at the resection site measuring 13 x 17 mm. Possible recurrence of brain tumor. In ER patient was given clindamycin 600mg IV x 1 for suspected aspiration pneumonia. At the time of my eval patient was noted to have right sided weakness which per daughter at bedside may have been new and could have started on with speech abnormality. Antibiotics were changed to Rocephin 2g IV daily plus flagyl 500mg IV daily. Procalcitonin however was negative. Blood culture had not shown any growth. Urine culture however did grow gram negative rods. Leukocytosis increased to 11. Remained afebrile however. In addition to this patient was initiated on stroke protocol as well. Was continued on Eliquis 5mg Per peg BID, lipitor 40mg per peg was continued. MRI Brain was obtained which showed tiny diffusion- weighted abnormality suspicious for small acute infarct involving left parieto- occipital junction. No hemorragic changes were seen. In addition to this also noted to have extensive volume loss with postsurgical tumor resection involving the inferior LEFT temporal parietal region. There is abnormal soft tissue contiguous with the resection cavity extending to the skull base with mass effec t upon the LEFT cerebellum and into the mastoid air cells. This all may be normal postoperative changes with packing material. No prior MRI examinations or postcontrast enhancement MRI for comparison. Further discussion with patient daughter reported she has had prior MRIs at [facility] in [place]. Records request was sent. MRI was reviewed with neurology. Findings on MRI were not consistent with physical deficits. Subjective 07/04 Patient was working with speech therapy, following commands, noted to have continued dysarthria and right sided weakness. No fever, chills, nausea or vom iting. Respiratory status remained stable. No chest pain, abdominal pain or diarrhea. 07/05 overnight patient was noted to have shown significant improvement in speech and right sided weakness. Speech was improving and more coherant this am. No fever, chills, nausea or vomiting. No diarrhea. 07/06 Noted to have significant improvement overnight, no fever, chills, nausea or vomiting. No respiratory status. 07/07 No new clinical events overnight 07/08 Patient weaned off oxygen, no acute clinical events overnight No fever, chills, nausea or vomiting Medications: Reviewed: Yes Vitals/I&O/Wt Last Vital Signs Temp 98.5 F 07/08/20 19:55 Pulse 102 H 07/08/20 21:05 Resp 16 07/08/20 21:05 BP 159/93 07/08/20 19:55 Pulse Ox 90 07/08/20 21:05 07/08/20 07/08/20 07/08/20 06:59 14:59 22:59 Intake Total 100 / 1590 1521 / 1521 520 / 2041 Output Total 1100 / 1100 800 / 800 200 / 1000 Balance -1000 / 490 721 / 721 320 / 1041 Physical Exam 2 Narrative: EXAM NARRATIVE: General- chronically ill-appearing elderly HEENT- grossly unremarkable Chest- Non-labored respiration on 02 via NC CVS :NSR ABD : S/p Peg EXT : no edema Neuro: Right UE/LE weakness Urinary Catheter Management^: Lance: Cath Placed During This Visit: yes Reason for Continuing Indwelling Catheter: Acute Urinary Retention or Obstruction Urinary Catheter Date of Insertion: 07/03/20 Data : 07/08/20 05:31 07/08/20 05:31 Micro: Microbiology 07/03/20 15:28 Blood Culture - Final Blood NO GROWTH AFTER 5 DAYS 07/03/20 15:24 Blood Culture - Final Blood NO GROWTH AFTER 5 DAYS A&P Assessment and plan (1) Aspiration pneumonia: Status: Acute (2) Expressive aphasia: Status: Acute (3) Recurrent neoplasm of brain: Status: Acute (4) Dysphagia: Status: Acute (5) S/P percutaneous endoscopic gastrostomy (PEG) tube placement: Status: Acute (6) Acute hypoxemic respiratory failure: Status: Acute (7) Hyperlipidemia associated with type 2 diabetes mellitus: Status: Acute (8) Vitamin D deficiency: Status: Acute (9) Diabetes mellitus, type II: Status: Acute (10) Hypothyroid: Status: Acute Acute Encephalopathy with speech abnormality(Dysarthria) and right sided weakness suspected Acute CVA - RESOLVED - Sx started 06/29 - Etiology likely multi-factorial - Brain tumor recurrence vs CVA vs infectious from uti/pneumonia - CT head w/o contrast - Mass measuring 13 x 17 mm, No recent imaging to compare to. No evidence of acute hemorrhage - MRI brain - suspected tiny area of diffusion restriction on left with abnormal soft tissue extending to skull base with mass effect on left cerebellum. - Records request for prior imaging sent to [facility] - pending - Continue eliquis 5 mg PO BID - Lipitor 20 mg PO qhs added - ECHO - pEF - Carotid doppler - no stenosis - Continue neuro-checks - Continue ST/PT/OT - Significant improvement in speech and weakness. - Resolved - back to baseline Hypertension - Metoprolol PEG BID - Lisnopril 20 mg PEG daily - Chlorthalidone 25 mg PEG daily Hypokalemia - replace as needed. - KCL 40 MEQ IV x 1 - BMP in am Acute Hypoxic Respiratory Failure suspected aspiration pneumonia - On 15L via NRB during admit - weaned to 2L of o2 via NC - Sputum gram stain and culture - if possible to obtain - S/p Ciprofloxacin/Clindamycin in ER - Continue Rocephin 2g IV daily plus Flagyl 500mg IV q8hr - Blood culture x 2 in ER - NGTD - High - risk for c-diff recurrence - continue pro-biotics - Repeat chest -xray prior to discharge - Wean oxygen to RA - May need to D/c On oxygen - Home o2 eval in am K. Pneumonia Urinary tract infection - UA positive for nitrates, leuk esterace, WBC, 2+ bacteria - Ucx - > K. Pneumonia - Continue Rocephin 2g IV q24hr - Will tx with 7 days of abx - Complete abx in am Insulin Dependent Diabetes - Sliding scale insulin - BS checks Q6hr Recent C-Diff Colitis - Tx with Vancomycin - No current diarrhea Dysphagia / hx of Vocal cord dysfunction - Recent PEG tube placement - Dietary consult - Tube feeding recommendation - Resume tube feedings via pump, monitor residuals - No clear evidence of insertion site infection - Recent laryngoplasty on 02/2020 by ENT - Follow up outpatient with ENT Paroxysmal Atrial Fibrillation with NVR - On Eliquis 5 mg PO Q12hr - Metoprolol 25 mg PEG BID Gasteroesophageal reflux disease - Pepcid 20 mg IV BID DVT ppx - Eliquis 5 mg PO BID Attestations Medical Necessity Statement*: Will require hospitalization until placement can be arranged. Time Spent in Patient Care: Greater than 35 minutes (>than 50% of time spent in counselling and/or direct pt care on unit) . Coding Level of Care Code Acute [employer] for g Fwd Diagnoses Aspiration pneumonia J69.0 Expressive aphasia R47.01 Recurrent neoplasm of brain D49.6 Dysphagia R13.10 S/P percutaneous endoscopic gastrostomy (PEG) tube placement Z93.1 Acute hypoxemic respiratory failure J96.01 Hyperlipidemia associated with type 2 diabetes mellitus E11.69; E78.5 Vitamin D deficiency E55.9 Diabetes mellitus, type II E11.9 Hypothyroid E03.9
[2020-07-08 20:52] LABS: Glucose Point of Care 160 mg/dL (70-110)
[2020-07-08] MEDS: albuterol 8 gm MDI 2 PUFF INHALATION (21:00)
[2020-07-08] MEDS: atorvastatin 40 mg Tablet 20 MG PO (21:08)
[2020-07-09] VITALS (9 sets, daily range): BP systolic 138–175; BP diastolic 78–99; PULSE 92–120; RESP 16–22; TEMP 36.6–37; O2SAT 91–95
[2020-07-09] MEDS: famotidine 20 mg/2 mL INJ IVP ×2 (05:03→18:41)
[2020-07-09] MEDS: levothyroxine 100 mcg Tablet PEG-TUBE (05:03)
[2020-07-09] MEDS: metroNIDAZOLE IV 500 MG/100 ML PREMIX 100 MG IV ×2 (05:04→14:34)
--- NOTE | 2020-07-09 05:44 | PC.NURSE ---
Shift Summary Patient rested well throughout the night. Glucerna ran continuously at 40ml/hr, no residual when checked. Patient had no complaints. One episode of incontinence.
[2020-07-09 06:23] LABS: Glucose Point of Care 172 mg/dL (70-110)
[2020-07-09] MEDS: albuterol 8 gm MDI 2 PUFF INHALATION (07:45)
[2020-07-09] MEDS: lisinopril 20 mg Tablet PEG-TUBE (11:08)
[2020-07-09] MEDS: lactobacillus 1 Tablet 1 TAB PEG-TUBE ×3 (11:08→20:18)
[2020-07-09] MEDS: metoprolol tartrate 25 mg Tablet PEG-TUBE ×2 (11:08→20:25)
[2020-07-09] MEDS: apixaban 5 mg Tablet PEG-TUBE ×2 (11:08→20:25)
[2020-07-09] MEDS: chlorthalidone 25 mg Tablet PO (11:09)
[2020-07-09 11:23] LABS: Basophils # 0.1 10^3/uL (0.0-0.1); Basophils % 0.8 %; Eosinophils # 0.2 10^3/uL (0.0-0.8); Eosinophils % 2.5 %; Hematocrit 40.5 % (37.0-47.0); Hemoglobin 12.7 g/dL (11.5-15.3); Lymphocytes # 2.2 10^3/uL (0.8-4.8); Lymphocytes % 24.7 %; Mean Corpuscular HGB Conc 31.4 g/dL (30.0-36.0); Mean Corpuscular Volume 89.2 fL (81-99); Mean Platelet Volume 11.1 fL (7.4-10.4); Monocytes # 0.7 10^3/uL (0.2-0.9); Monocytes % 8.2 %; Neutrophils # 5.16 10^3/uL (1.8-7.7); Neutrophils % 58.9 %; Nucleated Red Blood Cells % 0 %; Platelet Count 348 10^3/cmm (130-400); Red Blood Count 4.54 10^6/uL (4.1-5.3); Red Cell Distribution Width 14.6 % (12.1-15.1); White Blood Count 8.8 10^3/uL (4.0-10.0)
[2020-07-09 11:29] LABS: Alanine Aminotransferase 6 U/L (0-33); Albumin Level 2.7 g/dL (3.5-5.2); Alkaline Phosphatase 73 IU/L (35-105); Anion Gap 10.7 (5-19); Aspartate Amino Transferase 16 U/L (0-32); Blood Urea Nitrogen 12 mg/dL (8-23); Carbon Dioxide 28 mmol/L (22-29); Chloride 101 mmol/L (98-107); Globulin 2.4 g/dL (1.3-4.6); Glucose 236 mg/dL (65-115); Osmolality Calculated 289 mOsm/kg (285-295); Potassium 3.7 mmol/L (3.5-5.1); Sodium 136 mmol/L (136-145); Total Bilirubin 0.4 mg/dL (0.15-1.2); Total Protein 5.1 g/dL (6.6-8.7)
[2020-07-09 12:40] LABS: Glucose Point of Care 170 mg/dL (70-110)
[2020-07-09 17:53] LABS: Glucose Point of Care 112 mg/dL (70-110)
--- NOTE | 2020-07-09 18:09 | P.PN_ITS ---
Subjective Subjective: Interval history: 80-year-old female with a past medical history significant for reported vocal cord paralysis s/p laryngoscopy with b/l true vocal cord injection/Laryngoplasty on 02/2020, insulin-dependent diabetes mellitus, diabetic neuropathy, hypertension, gastroesophageal reflux disease, dyslipidemia, hypothyroidism, gastric bypass, cholecystectomy and brain tumor wh ich was initialy resected however noted to have recurrence s/p whole brain radiation x 1 ( 1 yr prior) who was brought to ER due to altered mental status. Patient was recently [place] [facility] [place] during which time she was suspected to have ascending cholengitis and transferred to [facility] for ERCP. Also during this hospitalization was noted to have new-onset atrial fibrillation and clostridium dificile colitis. Per daughter at [facility] she was tx with IV antibiotics. She is unclear if ERCP was done. Prior to discharge patient was noted to have dysphagia and high risk for aspiration during which time a PEG tube was placed. Patient was stable until during which time she was found to be confused with dysarthria. Over the next few days she was noted to be increasingly confused. Lab work up at [facility] had shown hypernatremia and UTI which was tx with antibiotics. Unclear if patient was noted to have respiratory distress however was placed on oxygen. She was noted to have a productive cough which started after patient was resumed on oral intake despite PEG tube/tube feedings. Arrived to ER today on 15L via NRB. Per daughter patient was comprehending questions and following commands however not able to respond. Laboratory work up on arrival to ER today showed a wbc of 8.6, Hb of 13.0, hct of 42.5 and a platelet count of 273. Sodium of 131, potassium of 4.8 , chloride of 91, bicarbonate of 31, BUN of 34 and a creatinine of 0.6. ABG of 7.45, pCO2 of 46.7, p02 of 81 and a bicarb of 32.4 on 15L via NRB. Lactic acid of 1.4 Troponin of 22 baseline and a repeat of 21.10 at 120 min. Delta T-T negative 0.90. UA showed nitrite positive, 2+ leukocyte esterace, numerous WBC adn 4+ bacteria. Chest x-ray showed very small b/l pleural effusions vs pleural thickening and left basilar sub-segmental atelectasis. Head CT was also performed which showed large resection cavity in the LEFT temporoparietal region is again evident and prominent soft tissue density at the resection site measuring 13 x 17 mm. Possible recurrence of brain tumor. In ER patient was given clindamycin 600mg IV x 1 for suspected aspiration pneumonia. At the time of my eval patient was noted to have right sided weakness which per daughter at bedside may have been new and could have started on with speech abnormality. Antibiotics were changed to Rocephin 2g IV daily plus flagyl 500mg IV daily. Procalcitonin however was negative. Blood culture had not shown any growth. Urine culture however did grow gram negative rods. Leukocytosis increased to 11. Remained afebrile however. In addition to this patient was initiated on stroke protocol as well. Was continued on Eliquis 5mg Per peg BID, lipitor 40mg per peg was continued. MRI Brain was obtained which showed tiny diffusion- weighted abnormality suspicious for small acute infarct involving left parieto- occipital junction. No hemorragic changes were seen. In addition to this also noted to have extensive volume loss with postsurgical tumor resection involving the inferior LEFT temporal parietal region. There is abnormal soft tissue contiguous with the resection cavity extending to the skull base with mass effec t upon the LEFT cerebellum and into the mastoid air cells. This all may be normal postoperative changes with packing material. No prior MRI examinations or postcontrast enhancement MRI for comparison. Further discussion with patient daughter reported she has had prior MRIs at [facility] in [place]. Records request was sent. MRI was reviewed with neurology. Findings on MRI were not consistent with physical deficits. Subjective 07/04 Patient was working with speech therapy, following commands, noted to have continued dysarthria and right sided weakness. No fever, chills, nausea or vom iting. Respiratory status remained stable. No chest pain, abdominal pain or diarrhea. 07/05 overnight patient was noted to have shown significant improvement in speech and right sided weakness. Speech was improving and more coherant this am. No fever, chills, nausea or vomiting. No diarrhea. 07/06 Noted to have significant improvement overnight, no fever, chills, nausea or vomiting. No respiratory status. 07/07 No new clinical events overnight 07/08 Patient weaned off oxygen, no acute clinical events overnight No fever, chills, nausea or vomiting 07/09 No new clinical events overnight. Medications: Reviewed: Yes Vitals/I&O/Wt Last Vital Signs Temp 98.3 F 07/09/20 19:29 Pulse 97 07/09/20 19:29 Resp 16 07/09/20 19:29 BP 155/81 07/09/20 19:29 Pulse Ox 92 07/09/20 19:29 07/09/20 07/09/20 07/09/20 06:59 14:59 22:59 Intake Total 550 / 2741 Output Total 550 / 1550 Balance 0 / 1191 Physical Exam Narrative: EXAM NARRATIVE: General- chronically ill-appearing elderly HEENT- grossly unremarkable Chest- Non-labored respiration on 02 via NC CVS :NSR ABD : S/p Peg EXT : no edema Neuro: Right UE/LE weakness Urinary Catheter Management^: Lance: Cath Placed During This Visit: yes, but has since been removed by the nurse Reason for Continuing Indwelling Catheter: Decision to DC Catheter Urinary Catheter Date of Insertion: 07/03/20 Date Urinary Catheter Removed: 07/09/20 Time Urinary Catheter Discontinued: 12:30 Data : 07/09/20 10:34 07/09/20 10:34 Micro: Microbiology 07/03/20 15:28 Blood Culture - Final Blood NO GROWTH AFTER 5 DAYS 07/03/20 15:24 Blood Culture - Final Blood NO GROWTH AFTER 5 DAYS A&P Assessment and plan (1) Aspiration pneumonia: Status: Acute (2) Expressive aphasia: Status: Acute (3) Recurrent neoplasm of brain: Status: Acute (4) Dysphagia: Status: Acute (5) S/P percutaneous endoscopic gastrostomy (PEG) tube placement: Status: Acute (6) Acute hypoxemic respiratory failure: Status: Acute (7) Hyperlipidemia associated with type 2 diabetes mellitus: Status: Acute (8) Vitamin D deficiency: Status: Acute (9) Diabetes mellitus, type II: Status: Acute (10) Hypothyroid: Status: Acute Acute Encephalopathy with speech abnormality(Dysarthria) and right sided weakness suspected Acute CVA - RESOLVED - Sx started 06/29 - Etiology likely multi-factorial - Brain tumor recurrence vs CVA vs infectious from uti/pneumonia - CT head w/o contrast - Mass measuring 13 x 17 mm, No recent imaging to compare to. No evidence of acute hemorrhage - MRI brain - suspected tiny area of diffusion restriction on left with abnormal soft tissue extending to skull base with mass effect on left cerebellum. - Records request for prior imaging sent to [facility] - pending - Continue eliquis 5 mg PO BID - Lipitor 20 mg PO qhs added - ECHO - pEF - Carotid doppler - no stenosis - Continue neuro-checks - Continue ST/PT/OT - Significant improvement in speech and weakness. - Resolved - back to baseline Hypertension - Metoprolol PEG BID - Lisnopril 20 mg PEG daily - Chlorthalidone 25 mg PEG daily Acute Hypoxic Respiratory Failure suspected aspiration pneumonia - On 15L via NRB during admit - Sputum gram stain and culture - if possible to obtain - S/p Ciprofloxacin/Clindamycin in ER - Continue Rocephin 2g IV daily plus Flagyl 500mg IV q8hr - Blood culture x 2 in ER - NGTD - High - risk for c-diff recurrence - continue pro-biotics - Repeat chest -xray prior to discharge - Wean oxygen to RA - May need conitinue o2 at SNF - Completed 7 days of abx - D/c today and monitor off K. Pneumonia Urinary tract infection - UA positive for nitrates, leuk esterace, WBC, 2+ bacteria - Ucx - > K. Pneumonia - Continue Rocephin 2g IV q24hr - Will tx with 7 days of abx - Complete abx today Insulin Dependent Diabetes - Sliding scale insulin - BS checks Q6hr Recent C-Diff Colitis - Tx with Vancomycin - No current diarrhea Dysphagia / hx of Vocal cord dysfunction - Recent PEG tube placement - Dietary consult - Tube feeding recommendation - Resume tube feedings via pump, monitor residuals - No clear evidence of insertion site infection - Recent laryngoplasty on 02/2020 by ENT - Follow up outpatient with ENT Paroxysmal Atrial Fibrillation with NVR - On Eliquis 5 mg PO Q12hr - Metoprolol 25 mg PEG BID Gasteroesophageal reflux disease - Pepcid 20 mg IV BID DVT ppx - Eliquis 5 mg PO BID Disposition: D/c home in am if SNF arranged. Attestations Medical Necessity Statement*: Will require continued hospitalization for placement arrangement. Time Spent in Patient Care: Greater than 35 minutes (>than 50% of time spent in counselling and/or direct pt care on unit) . Coding Level of Care Code Acute Director Patient for g Fwd Diagnoses Aspiration pneumonia J69.0 Expressive aphasia R47.01 Recurrent neoplasm of brain D49.6 Dysphagia R13.10 S/P percutaneous endoscopic gastrostomy (PEG) tube placement Z93.1 Acute hypoxemic respiratory failure J96.01 Hyperlipidemia associated with type 2 diabetes mellitus E11.69; E78.5 Vitamin D deficiency E55.9 Diabetes mellitus, type II E11.9 Hypothyroid E03.9
[2020-07-09] MEDS: cefTRIAXone 2,000 MG in sodium chloride 0.9% (plus) 50 ML 100 MG IV (18:43)
[2020-07-09] MEDS: atorvastatin 40 mg Tablet 20 MG PO (20:24)
[2020-07-09 20:48] LABS: Glucose Point of Care 157 mg/dL (70-110)
[2020-07-10] VITALS: BP 148/83; PULSE 103; RESP 17; TEMP 36.5; O2SAT 90
--- NOTE | 2020-07-10 02:53 | PC.NURSE ---
Urine output So far this shift patient has voided 3 times in her brief. She hits her light to get up to bedside commode but patient states she is unable to hold her bladder. Brief is quite full of urine. She has had one bowel movement in the bedside commode.
[2020-07-10 04:00] VITALS: BP 136/84; PULSE 88; RESP 17; TEMP 36.6; O2SAT 93
[2020-07-10] MEDS: levothyroxine 100 mcg Tablet PEG-TUBE (05:23)
[2020-07-10 06:51] LABS: Glucose Point of Care 212 mg/dL (70-110)
[2020-07-10 08:00] VITALS: BP 159/101; PULSE 96; RESP 16; TEMP 36.7; O2SAT 96
[2020-07-10] MEDS: lisinopril 20 mg Tablet PEG-TUBE (08:59)
[2020-07-10] MEDS: lactobacillus 1 Tablet 1 TAB PEG-TUBE (08:59)
[2020-07-10] MEDS: metoprolol tartrate 25 mg Tablet PEG-TUBE (08:59)
[2020-07-10] MEDS: chlorthalidone 25 mg Tablet PO (08:59)
[2020-07-10] MEDS: apixaban 5 mg Tablet PEG-TUBE (08:59)
[2020-07-10 09:04] VITALS: PULSE 101; RESP 18; O2SAT 96
[2020-07-10 09:53] LABS: SARS Covid-2 Antigen Negative (Negative)
--- NOTE | 2020-07-10 11:10 | DCPLANNER ---
Pg 2 of IM updated and reviewed with pt. No questions, she is being d/c'd today and is happy with that.
[2020-07-10 11:39] LABS: Glucose Point of Care 222 mg/dL (70-110)
[2020-07-10 14:20] VITALS: BP 149/72; PULSE 91; RESP 18; TEMP 36.9; O2SAT 96
--- NOTE | 2020-07-10 17:10 | PM.DCS ---
Discharge Providers Date of Admission: 07/03/20 11:12 Date of Discharge: July 10, 2020 Attending Provider at Admission: Ricco Young Attending Provider at Discharge: Ricco Young Primary Care Provider: AMY Cordova Diagnoses at Discharge Discharge Diagnosis (1) Aspiration pneumonia: Status: Acute (2) Expressive aphasia: Status: Resolved (3) Recurrent neoplasm of brain: Status: Acute (4) Dysphagia: Status: Acute (5) S/P percutaneous endoscopic gastrostomy (PEG) tube placement: Status: Acute (6) Acute hypoxemic respiratory failure: Status: Acute (7) Hyperlipidemia associated with type 2 diabetes mellitus: Status: Acute (8) Vitamin D deficiency: Status: Acute Permanent problem details: Patient has history of Vitamin D deficiency. (9) Diabetes mellitus, type II: Status: Acute (10) Hypothyroid: Status: Acute Reason for Visit Reason for Visit: [facility] Hospital Course Hospital Course 80-year-old female with a past medical history significant for reported vocal cord paralysis s/p laryngoscopy with b/l true vocal cord injection/Laryngoplasty on 02/2020, insulin-dependent diabetes mellitus, diabetic neuropathy, hypertension, gastroesophageal reflux disease, dyslipidemia, hypothyroidism, gastric bypass, cholecystectomy and brain tumor which was initialy resected however noted to have recurrence s/p whole brain radiation x 1 ( 1 yr prior) who was brought to ER due to altered mental status. Patient was recently admitted [place] [facility] [place]09 [place] 06/11 during which time she was suspected to have ascending cholengitis and transferred to [facility] for ERCP. Also during this hospitalization was noted to have new-onset atrial fibrillation and clostridium dificile colitis. Per daughter at [facility] she was tx with IV antibiotics. She is unclear if ERCP was done. Prior to discharge patient was noted to have dysphagia and high risk for aspiration during which time a PEG tube was placed. Patient was stable until during which time she was found to be confused with dysarthria. Over the next few days she was noted to be increasingly confused. Lab work up at [facility] had shown hypernatremia and UTI which was tx with antibiotics. Unclear if patient was noted to have respiratory distress however was placed on oxygen. She was noted to have a productive cough which started after patient was resumed on oral intake despite PEG tube/tube feedings. Arrived to ER today on 15L via NRB. Per daughter patient was comprehending questions and following commands however not able to respond. Laboratory work up on arrival to ER today showed a wbc of 8.6, Hb of 13.0, hct of 42.5 and a platelet count of 273. Sodium of 131, potassium of 4.8 , chloride of 91, bicarbonate of 31, BUN of 34 and a creatinine of 0.6. ABG of 7.45, pCO2 of 46.7, p02 of 81 and a bicarb of 32.4 on 15L via NRB. Lactic acid of 1.4 Troponin of 22 baseline and a repeat of 21.10 at 120 min. Delta T-T negative 0.90. UA showed nitrite positive, 2+ leukocyte esterace, numerous WBC adn 4+ bacteria. Chest x-ray showed very small b/l pleural effusions vs pleural thickening and left basilar sub-segmental atelectasis. Head CT was also performed which showed large resection cavity in the LEFT temporoparietal region is again evident and prominent soft tissue density at the resection site measuring 13 x 17 mm. Possible recurrence of brain tumor. In ER patient was given clindamycin 600mg IV x 1 for suspected aspiration pneumonia. At the time of my eval patient was noted to have right sided weakness which per daughter at bedside may have been new and could have started on with speech abnormality. Antibiotics were changed to Rocephin 2g IV daily plus flagyl 500mg IV daily. Procalcitonin however was negative. Blood culture had not shown any growth. Urine culture however did grow gram negative rods. Leukocytosis increased to 11. Remained afebrile however. In addition to this patient was initiated on stroke protocol as well. Was continued on Eliquis 5mg Per peg BID, lipitor 40mg per peg was continued. MRI Brain was obtained which showed tiny diffusion- weighted abnormality suspicious for small acute infarct involving left parieto-occipital junction. No hemorragic changes were seen. In addition to this also noted to have extensive volume loss with postsurgical tumor resection involving the inferior LEFT temporal parietal region. There is abnormal soft tissue contiguous with the resection cavity extending to the skull base with mass effect upon the LEFT cerebellum and into the mastoid air cells. This all may be normal postoperative changes with packing material. No prior MRI examinations or postcontrast enhancement MRI for comparison. Further discussion with patient daughter reported she has had prior MRIs at [facility] in [place]. Records request was sent. MRI was reviewed with neurology. Findings on MRI were not consistent with physical deficits. Patient was noted have significant improvement in deficit. Speech a return to normal. In addition patient was no longer having right-sided weakness. Etiology remains unclear. Infectious versus acute stroke. She was continued on antibiotics for total 7 days. Did not have any further episodes of fever. Respiratory status remained stable. She was intermittently requiring 1 to 2 L of O2 via nasal cannula. Discharge was delayed due to placement. Family had [facility] which was arranged. Discharged in stable condition. Advised to follow up with Neurology in addition to Oncology who has been following patients malignancy. All questions were answered. In addition patient was started on tube feeding which she tolerated well. Was kept NPO by mouth due to high risk of aspiration. Advisd to follow up with ENT on a outpatient bases. Physical Exam Narrative: EXAM NARRATIVE: General- chronically ill-appearing elderly - more alert HEENT- grossly unremarkable Chest- Non-labored respiration on via NC CVS :NSR ABD : S/p Peg EXT : no edema Neuro: Right UE/LE weakness Urinary Catheter Management^: Lance: Cath Placed During This Visit: yes, but has since been removed by the nurse Reason for Continuing Indwelling Catheter: Decision to DC Catheter Urinary Catheter Date of Insertion: 07/03/20 Date Urinary Catheter Removed: 07/09/20 Time Urinary Catheter Discontinued: 12:30 Discharge Data Data Completed and Pending: Completed Studies During Hospitalization Category Date Time Status CT head wo con* 7 0450 Stat Cat Scan 07/03/20 09:09 Completed XR acute abdomen series 29103 Routi ne Exams 07/05/20 07:00 Completed XR chest 1V yenifer ble 71427 Stat Exams 07/03/20 09:09 Completed MR head wo con* 7 0551 Routine MRI 07/04/20 10:15 Completed CV carotid duplex BI* [id number] Routine Ultrasound 07/05/20 17:10 Completed CV echo complete* 61381 Routine Ultrasound 07/05/20 20:33 Completed Vitals: Last Vital Signs Temp 98.5 F 07/10/20 14:20 Pulse 91 07/10/20 14:20 Resp 18 07/10/20 14:20 BP 149/72 07/10/20 14:20 Pulse Ox 96 07/10/20 14:20 Discharge Plan Discharge Patient Disposition: Xfer SNF Condition: Stable Prescriptions: New acetaminophen 500 mg Tablet 500 mg feeding tube Q6H PRN (Reason: Pain) Qty: 30 RF: 0 Eliquis 5 mg Tablet 5 mg peg-tube Q12H Qty: 60 RF: 0 atorvastatin 40 mg Tablet 20 mg PO BEDTIME Qty: 30 RF: 0 chlorthalidone 25 mg Tablet 25 mg feeding tube DAILY@08 Qty: 30 RF: 0 Levoxyl 100 mcg Tablet 100 mcg peg-tube DAILY@06 Qty: 30 RF: 0 famotidine 20 mg Tablet 20 mg peg-tube BEDTIME Qty: 30 RF: 0 Continued albuterol sulfate 90 mcg/actuation HFA aerosol inhaler 2 puff INHALATION Q6H PRN (Reason: SHORTNESS OF BREATH) RF: 0 Zofran 4 mg Tablet 4 mg PO Q8H PRN (Reason: Nausea) RF: 0 prednisolone acetate 1 % drops,suspension 1 drop ophthalmic (eye) QID RF: 0 fluticasone propionate 50 mcg/actuation spray,suspension 1 spray INTRANASAL DAILY@08 RF: 0 Senna-S 8.6-50 mg Tablet 1 tab-cap PO DAILY PRN (Reason: Constipation) RF: 0 bisacodyl 10 mg Suppository 10 mg WI DAILY PRN (Reason: Constipation) RF: 0 Enema 19-7 gram/118 mL Enema 118 ml WI DAILY PRN (Reason: Constipation) RF: 0 Jevity 1.5 Gentry 0.06 gram-1.5 kcal/mL Liquid See Rx Instructions .ROUTE .COMPLEX RF: 0 Changed Milk of Magnesia 400 mg/5 mL Suspension 30 ml feeding tube DAILY PRN (Reason: Constipation) Qty: 0 RF: 0 ergocalciferol (vitamin D2) 1,250 mcg (50,000 unit) capsule 50,000 unit feeding tube Q7D Qty: 0 RF: 0 lisinopril 40 mg tablet 40 mg feeding tube DAILY@08 Qty: 0 RF: 0 metoprolol tartrate 25 mg tablet 25 mg feeding tube Q12H Qty: 0 RF: 0 Discontinued ciprofloxacin HCl 250 mg tablet See Rx Instructions .ROUTE .COMPLEX Qty: 6 RF: 0 levothyroxine 100 mcg Tablet 100 mcg PO DAILY@06 RF: 0 nitrofurantoin monohyd/m-cryst [Macrobid] 100 mg Capsule 100 mg PO Q12H RF: 0 Eliquis 5 mg Tablet 5 mg PO Q12H RF: 0 chlorthalidone 25 mg tablet 25 mg PO DAILY@08 RF: 0 omeprazole 40 mg capsule,delayed release(DR/EC) 40 mg PO DAILY@08 RF: 0 acetaminophen 500 mg Tablet 500 mg PO Q6H PRN (Reason: Pain) RF: 0 polyethylene glycol 3350 [Miralax] 17 gram/dose Powder 17 g PO DAILY PRN (Reason: Constipation) RF: 0 Discharge Orders: Discharge Order (Routine); Ordered 07/10/20 Ordered By: Ricco Young Referrals: [facility] [address] [Outside] GERALDO Johnson, HEALTH CARE FACILITY ADMINISTRATOR [Primary Care Provider] - 07/17/20 10:40 am Discharge Diet: Start new tube feeds as directed Discharge Activity: Increase activity as tolerated and Oxygen as instructed Activity Restrictions/Additional Instructions: Continue to remain NPO until seen by ENT. Maintain 2 feeds and meds by PEG tube. Return to hospital if any recurrence of fever, chills, respiratory distress. Follow-up with Oncology as prior for evaluation. Continue speech therapy treatment plan at SNF. Aspiration and fall precautions. Continue supplemental o2 as needed via NC. Discharge Attestations Time Spent in Discharge Care*: greater than 30 min Quality Metrics Clinical Quality Measures During this hospital stay, did patient experience: None Coding Level of Care Code Acute Authorization Representative for g Fwd Diagnoses Aspiration pneumonia J69.0 Expressive aphasia R47.01 Recurrent neoplasm of brain D49.6 Dysphagia R13.10 S/P percutaneous endoscopic gastrostomy (PEG) tube placement Z93.1 Acute hypoxemic respiratory failure J96.01 Hyperlipidemia associated with type 2 diabetes mellitus E11.69; E78.5 Vitamin D deficiency E55.9 Diabetes mellitus, type II E11.9 Hypothyroid E03.9
== END 2020-07-10 11:55 | disposition skilled nursing facility (03) | DRG 177 ==
LOC: ER 08:52 → MEDSURG 12:22
PROVIDERS: Admitting Provider Hospitalist; Emergency Provider Family Medicine; PCP Nurse Practitioner Family; Visit Provider Hospitalist
DX: J69.0 Pneumonitis due to inhalation of food and vomit (principal); I63.9 Cerebral infarction, unspecified; J96.01 Acute respiratory failure with hypoxia; R47.01 Aphasia; G81.91 Hemiplegia, unspecified affecting right dominant side; G93.40 Encephalopathy, unspecified; N39.0 Urinary tract infection, site not specified; D43.1 Neoplasm of uncertain behavior of brain, infratentorial; R13.10 Dysphagia, unspecified; R29.712 NIHSS score 12; J38.00 Paralysis of vocal cords and larynx, unspecified; E11.42 Type 2 diabetes mellitus with diabetic polyneuropathy; Z79.4 Long term (current) use of insulin; I10 Essential (primary) hypertension; K21.9 Gastro-esophageal reflux disease without esophagitis; E78.5 Hyperlipidemia, unspecified; E03.9 Hypothyroidism, unspecified; Z98.84 Bariatric surgery status; Z92.3 Personal history of irradiation; I48.0 Paroxysmal atrial fibrillation; Z93.1 Gastrostomy status; E55.9 Vitamin D deficiency, unspecified; Z87.891 Personal history of nicotine dependence; E87.6 Hypokalemia; B96.1 Klebsiella pneumoniae [K. pneumoniae] as the cause of diseases classified elsewhere
CPT/HCPCS: 12345; 36415; 36416; 36600; 51702; 70450; 70551; 71045; 74022; 80051; 80053; 80061; 81001; 82330; 82550; 82805; 82962; 83036; 83605; 83690; 84145; 84484; 85025; 87040; 87077; 87086; 87186; 87426; 87493; 92507; 92523; 92526; 92610; 93005; 93306; 93880; 94640; 94762; 96372; 97110; 97161; 97166; 97530; 97535; 99283; J0696; J0744; J1815; J2270; J3480; J3490; J3535; J7030; S0030

== ENCOUNTER 2020-07-28 10:34 | Inpatient (IN) | payer MEDICARE, OTHER, SELFPAY ==
[2020-07-28] VITALS (11 sets, daily range): BP systolic 93–124; BP diastolic 49–64; PULSE 73–88; RESP 15–21; TEMP 36.4–37.1; O2SAT 94–97; BMI 20.1
--- NOTE | 2020-07-28 10:56 | XR_ITS ---
WS: [id number] Portable AP upright chest, 07/28/2020 Clinical Data: dyspnea/cough Comparison: Portable chest, 07/03/2020. Findings: No nodules, masses or effusions are seen. The heart is normal. The pulmonary vascularity is not increased. No pneumonia or pneumothorax is seen. The aortic arch and descending aorta show calci fication and tortuosity. There are orthopedic anchors in the right humeral head. There are calcificat ions in the right breast which are large. There are clips in the upper abdomen from surgery and there is a PEG tube in the left upper quadrant. Monitor leads are on the chest wall. XR/XR chest 1V portable [id number] Impression: 1. Negative for pneumonia. 2. Atherosclerosis.
--- NOTE | 2020-07-28 10:56 | CT_ITS ---
WS: [id number] CT ABDOMEN PELVIS TECHNIQUE: Contrast-enhanced CT of the abdomen and pelvis with coronal and sagittal reformatted image s. CLINICAL INFORMATION: abd pain COMPARISON: CT June 09, 2020 DLP: 451.[address] scans at [facility] use at least one of these dose optimization techniques: automat ed exposure control; mA and/or kV adjustment per patient size (includes targeted exams where dose is matched to clinical indication); or iterative reconstruction. FINDINGS: Prior postoperative changes cholecystectomy and hysterectomy. Stable diffuse intrahepatic biliary brea t dilatation. This is unchanged from previous. Enlarged common bile duct is persistent but improved c ompared to previous today measuring 7 mm at the pancreatic head with tapering distally. Fatty atrophy of the pancreas. Adrenal glands are normal. Normal renal parenchymal enhancement. No hydronephrosis. Prominent extrarenal pelvis is bilaterally unchanged. Jejunostomy tube in place. Jejunostomy tube is normal in appearance. No evidence of fluid collection or abscess. Postoperative changes at the GE junction. Normal spleen. Small left pleural effusion. Bib asilar atelectasis. Normal caliber abdominal aorta. Aortic calcification. No evidence of high-grade s mall or large bowel obstruction. A few air-fluid levels in the transverse colon. Tiny fat-containing umbilical hernia. Lumbar curve. IMPRESSION: 1. Prior postoperative changes cholecystectomy. 2. Stable intrahepatic biliary ductal dilatation with improved common bile duct compared to previous . 3. Prior gastric bypass. 4. Jejunostomy tube in place. This is normal in appearance. No evidence of subcutaneous fluid collec tion or abscess. 5. A few air-fluid levels in the transverse colon. No evidence of high-grade small or large bowel ob struction. 6. Small left pleural effusion with compressive atelectasis left lower lobe. Notified Terrell Casanova DO at 07/28/2020 1:16 PM.
--- NOTE | 2020-07-28 10:56 | ECG_ITS ---
[facility] Test Date: 2020-07-28 Pat Name: Kaur Garland Department: Room: Gender: Female Chief Medical Physicist: : 1940 Requested By: Terrell Farmer Order Number: [id number] Feli MD: Antonio Hill M.D. Measurements Intervals [place] Rate: 83 P: 18 HI: 142 QRS: -20 QRSD: 91 T: 45 QT: 347 QTc: 409 Interpretive Statements Multifocal atrial rhythm compared to ECG 07/03/2020 13:51:07 Sinus tachycardia no longer present Electronically Signed On 07-30-2020 9:14:12 [employer] by Antonio Hill M.D. [email or web address]
[2020-07-28] MEDS: sodium chloride 0.9% 1,000 ML 999 ML IV ×2 (11:14→12:54)
[2020-07-28] MEDS: ondansetron 2 mg/ML SDV 2 mL 4 MG IVP (11:14)
--- NOTE | 2020-07-28 11:18 | ED_ITS ---
HPI - Nausea/Vomiting/Diarrhea General: Chief complaint: Nausea/Vomiting/Diarrhea Stated complaint: NAUSEA Time Seen by Provider: 07/28/20 10:40 History of Present Illness: HPI Narrative: 80-year-old female presents to the emergency room via EMS from the residential. They report persistent nausea vomiting transfer note says persistent hypertension however patient systolic pressure is 103 initially and then decreases to 96. Patient has a PEG tube in place. She had problems prior to that patient had tried several different remedies evidently to help with the nausea. MD elicited complaint: nausea, vomiting and abdominal pain Onset (ago): week(s) Associated nausea: Yes Associated abdominal pain: Yes Location of pain: Diffuse Severity: moderate Quality: cramping Exacerbating factors: none Relieving factors: none Associated symtoms: Reports altered mental status (Chronic mild dementia), bloating, nausea and weakness; Denies chest pain, cough, diaphoresis, decreased urine output, dizziness, dysuria, epistaxis, fatigue, fecal incontinence, fevers/chills, headache(s), anorexia, malaise, myalgias, numbness, palpitations, rash, short of breath, syncope or tenesmus Review of Systems Const: Denies: fatigue, malaise or diaphoresis ENMT: Denies: epistaxis Card: Denies: chest pain, palpitations or syncope Resp: Denies: dyspnea, productive cough or non-productive cough GI: Reports: nausea and bloating; Denies: fecal incontinence : Denies: dysuria Skin/Breast: Denies: rash or pruritus Neuro: Denies: headache(s) or dizziness [facility] ED PFSH: Medical History (Updated 07/28/20 @ 16:55 by Terrell Casanova DO) Brain tumor Cricopharyngeal achalasia Diabetes mellitus, type II Diabetic polyneuropathy Essential hypertension, benign GERD (gastroesophageal reflux disease) Hyperlipidemia associated with type 2 diabetes mellitus Hypertension Patient has been controlled with oral blood pressure medications. Hypothyroid Smell, impaired Taste absent Vitamin D deficiency Patient has history of Vitamin D deficiency. Surgical History (Updated 07/28/20 @ 16:55 by Terrell Casanova DO) H/O brain surgery Brain Tumor removed 2011 History of bladder surgery S/P appendectomy S/P arthroscopy of left shoulder S/P cataract surgery S/P cholecystectomy S/P gastric bypass S/P vaginal hysterectomy Status post corneal transplant Social History Smoking and tobacco status: former smoker Second hand smoke exposure: No Smoking risk assessment/counseling performed?: No Alcohol intake: never Desire information about alcohol rehabilitation?: No Counseling given: No Desire information about substance/drug rehabilitation?: No Counseling given: No Physical Exam Const: COMMON NORMALS: no acute distress EXAM LIMITATIONS: altered mental status (Chronic mild dementia) HENMT: COMMON NORMALS: normocephalic, atraumatic and hearing grossly normal bilaterally HEAD & SCALP: normocephalic and atraumatic Neck/C-Spine: COMMON NORMALS: no JVD Resp: COMMON NORMALS: normal respiratory effort, No retractions, No use of accessory muscles and clear to auscultation bilaterally AUSCULTATION: clear to auscultation bilaterally Cardio: COMMON NORMALS: no JVD, regular rate, regular rhythm and No murmurs present (Cardio) RATE: regular rate RHYTHM: regular rhythm GI: COMMON NORMALS: Soft to palpation and No hepatosplenomegaly present AUSCULTATION: Yes normoactive bowel sounds PALPATION: Yes Soft to palpation, No Tenderness to palpation present (GI), No Guarding due to palpation present (GI) and Yes No hepatosplenomegaly present OTHER: Mucus buildup under the flange of the PEG tube as well as sutures are still in place these were removed using a suture kit without any difficulty mucus cleaned out there is no sign of infection. Looks more reactionary to the foreign body. Extremity: COMMON NORMALS: normal to inspection, capillary refill normal, no clubbing, cyanosis or edema, no calf tenderness and no pedal edema Skin: COMMON NORMALS: no rashes or lesions noted GENERAL SKIN EXAM: no rashes or lesions noted Course Vital Signs: Vital signs: Vital Signs Temperature 97.5 F L 07/28/20 10:44 Pulse Rate 78 07/28/20 16:00 Respiratory Rate 15 07/28/20 16:00 Blood Pressure 108/50 07/28/20 16:00 Pulse Oximetry 96 07/28/20 16:00 MDM - Nausea/Vomiting/Diarrhea MDM Narrative: Medical decision making narrative: BUN markedly elevated as well as a potassium of 5.8 patient has been given fluids on arrival here we will go ahead and admit her for rehydration adjustment of medications and her hyperkalemia. Lab Data: Labs: Lab Results 07/28/20 07/28/20 07/28/20 Range/Units 11:35 11:35 11:35 WBC 11.2 H (4.0-10.0) 10^3/ uL RBC 3.88 L (4.1-5.3) 10^6/u L Hgb 11.0 L (11.5-15.3) g/dL Hct 36.3 L (37.0-47.0) % MCV 93.6 (81-99) fL MCH 28.4 (28.0-34.0) pg MCHC 30.3 (30.0-36.0) g/dL RDW 15.8 H (12.1-15.1) % Plt Count 281 (130-400) 10^3/c mm MPV 11.6 H (7.4-10.4) fL Neut % (Auto) 75.3 % Lymph % (Auto) 12.7 % [place] % (Auto) 9.1 % Eos % (Auto) 1.2 % Baso % (Auto) 0.3 % Neut # (Auto) 8.39 H (1.8-7.7) 10^3/u L Lymph # (Auto) 1.4 (0.8-4.8) 10^3/u L [place] # (Auto) 1.0 H (0.2-0.9) 10^3/u L Eos # (Auto) 0.1 (0.0-0.8) 10^3/u L Baso # (Auto) 0.0 (0.0-0.1) 10^3/u L Nucleated RBC % (a uto) 0 % Nucleated RBCs # 0.0 /100WBC PT (12.1-14.9) SECO NDS INR (0.8-1.2) APTT (23.9-36.7) SECO NDS Sodium 133 L (136-145) mmol/L Potassium 5.8 H (3.5-5.1) mmol/L Chloride 99 (98-107) mmol/L Carbon Dioxide 29 (22-29) mmol/L Anion Gap 10.8 (5-19) BUN 96 H* D (8-23) mg/dL Creatinine 1.2 H (0.5-0.9) mg/dL GFR Calculation Not Reportable Glucose 236 H (65-115) mg/dL Calculated Osmolal ity 313 H (285-295) mOsm/k g Lactic Acid 1.1 (0.5-2.2) mmol/L Calcium 8.7 (8.5-10.5) mg/dL Total Bilirubin 0.5 (0.15-1.2) mg/dL AST 20 (0-32) U/L ALT 25 (0-33) U/L Alkaline Phosphata se 123 H (35-105) IU/L Creatine Kinase 10 L (26-192) U/L Total Protein 6.2 L (6.6-8.7) g/dL Albumin 2.8 L (3.5-5.2) g/dL Globulin 3.4 (1.3-4.6) g/dL Urine Color (Yellow) Urine Appearance (CLEAR) Urine pH (5-7) Ur Specific Gravit y (1.005-1.030) Urine Protein (Negative) Urine Glucose (UA) (Normal) Urine Ketones (Negative) Urine Blood (Negative) Urine Nitrate (Negative) Urine Bilirubin (Negative) Urine Urobilinogen (Negative) mg/dL Ur Leukocyte Aisha ase (Negative) Urine RBC (0-2) /hpf Urine WBC (0-5) /hpf Ur Squamous Epith Cells (0-5) /hpf Amorphous Sediment Urine Bacteria (NONE) /hpf 07/28/20 07/28/20 Range/Units 11:35 12:05 WBC (4.0-10.0) 10^3/ uL RBC (4.1-5.3) 10^6/u L Hgb (11.5-15.3) g/dL Hct (37.0-47.0) % MCV (81-99) fL MCH (28.0-34.0) pg MCHC (30.0-36.0) g/dL RDW (12.1-15.1) % Plt Count (130-400) 10^3/c mm MPV (7.4-10.4) fL Neut % (Auto) % Lymph % (Auto) % [place] % (Auto) % Eos % (Auto) % Baso % (Auto) % Neut # (Auto) (1.8-7.7) 10^3/u L Lymph # (Auto) (0.8-4.8) 10^3/u L [place] # (Auto) (0.2-0.9) 10^3/u L Eos # (Auto) (0.0-0.8) 10^3/u L Baso # (Auto) (0.0-0.1) 10^3/u L Nucleated RBC % (a uto) % Nucleated RBCs # /100WBC PT 18.80 H (12.1-14.9) SECO NDS INR 1.51 H (0.8-1.2) APTT 34.1 (23.9-36.7) SECO NDS Sodium (136-145) mmol/L Potassium (3.5-5.1) mmol/L Chloride (98-107) mmol/L Carbon Dioxide (22-29) mmol/L Anion Gap (5-19) BUN (8-23) mg/dL Creatinine (0.5-0.9) mg/dL GFR Calculation Glucose (65-115) mg/dL Calculated Osmolal ity (285-295) mOsm/k g Lactic Acid (0.5-2.2) mmol/L Calcium (8.5-10.5) mg/dL Total Bilirubin (0.15-1.2) mg/dL AST (0-32) U/L ALT (0-33) U/L Alkaline Phosphata se (35-105) IU/L Creatine Kinase (26-192) U/L Total Protein (6.6-8.7) g/dL Albumin (3.5-5.2) g/dL Globulin (1.3-4.6) g/dL Urine Color Yellow (Yellow) Urine Appearance Sl hazy (CLEAR) Urine pH 5 (5-7) Ur Specific Gravit y 1.010 (1.005-1.030) Urine Protein Neg (Negative) Urine Glucose (UA) Norm (Normal) Urine Ketones Negative (Negative) Urine Blood Neg (Negative) Urine Nitrate Positive H (Negative) Urine Bilirubin Neg (Negative) Urine Urobilinogen Norm (Negative) mg/dL Ur Leukocyte Aisha ase Trace H (Negative) Urine RBC None (0-2) /hpf Urine WBC 15-25 H (0-5) /hpf Ur Squamous Epith Cells 0-4 H (0-5) /hpf Amorphous Sediment Not Reportable Urine Bacteria 4+ H (NONE) /hpf Discharge Plan Discharge Admit Provider: Ricco Young Clinical Impression: Acute hyperkalemia, Diabetes mellitus, type II, Essential hypertension, benign, S/P percutaneous endoscopic gastrostomy (PEG) tube placement, Acute dehydration Condition: Stable Coding Level of Care Code ED Section [employer] for [employer]
[2020-07-28 11:43] LABS: Basophils % 0.3 %; Eosinophils # 0.1 10^3/uL (0.0-0.8); Eosinophils % 1.2 %; Hematocrit 36.3 % (37.0-47.0); Lymphocytes # 1.4 10^3/uL (0.8-4.8); Lymphocytes % 12.7 %; Mean Corpuscular HGB Conc 30.3 g/dL (30.0-36.0); Mean Corpuscular Hemoglobin 28.4 pg (28.0-34.0); Mean Corpuscular Volume 93.6 fL (81-99); Mean Platelet Volume 11.6 fL (7.4-10.4); Monocytes % 9.1 %; Neutrophils # 8.39 10^3/uL (1.8-7.7); Neutrophils % 75.3 %; Nucleated Red Blood Cells % 0 %; Platelet Count 281 10^3/cmm (130-400); Red Blood Count 3.88 10^6/uL (4.1-5.3); Red Cell Distribution Width 15.8 % (12.1-15.1); White Blood Count 11.2 10^3/uL (4.0-10.0)
[2020-07-28 11:57] LABS: Slide Review Slide Review Perform
[2020-07-28 12:10] LABS: Lactic Sepsis W/Reflex 1.1 mmol/L (0.5-2.2)
[2020-07-28 12:11] LABS: Alanine Aminotransferase 25 U/L (0-33); Albumin Level 2.8 g/dL (3.5-5.2); Alkaline Phosphatase 123 IU/L (35-105); Anion Gap 10.8 (5-19); Aspartate Amino Transferase 20 U/L (0-32); Calcium 8.7 mg/dL (8.5-10.5); Carbon Dioxide 29 mmol/L (22-29); Chloride 99 mmol/L (98-107); Creatine Phosphokinase 10 U/L (26-192); Globulin 3.4 g/dL (1.3-4.6); Glucose 236 mg/dL (65-115); Osmolality Calculated 313 mOsm/kg (285-295); Potassium 5.8 mmol/L (3.5-5.1); Sodium 133 mmol/L (136-145); Total Bilirubin 0.5 mg/dL (0.15-1.2); Total Protein 6.2 g/dL (6.6-8.7)
[2020-07-28 12:17] LABS: Blood Urea Nitrogen 96 mg/dL (8-23)
[2020-07-28 12:21] LABS: Add Urine Microscopic? YES; Bilirubin Urine Neg (Negative); Blood Urine Neg (Negative); Glucose Urine UA Norm (Normal); Ketones Urine Negative (Negative); Leukocyte Esterase Urine Trace (Negative); Nitrate Urine Positive (Negative); Protein Urine Neg (Negative); Urine Appearance SL Hazy (CLEAR); Urine Color Yellow (Yellow); Urobilinogen Urine Norm (Negative); pH Urine 5 (5-7)
[2020-07-28 12:22] LABS: Add Urine Culture? Yes; Bacteria Urine 4+ /hpf; Squamous Epithelial Cell Urine 0-4 /hpf (0-5); WBC Urine 15-25 /hpf (0-5)
[2020-07-28] MEDS: iodixanol 320 mg/mL 100mL Btl IV (12:42)
[2020-07-28 12:54] LABS: INR 1.51 (0.8-1.2)
[2020-07-28 12:56] LABS: Partial Thromboplastin Time 34.1 SECONDS (23.9-36.7)
--- NOTE | 2020-07-28 16:26 | PM.HP ---
Providers/Chief Complaint Primary Care Provider: AMY Cordova Chief Complaint: NAUSEA History of Present Illness 80-year-old female with a past medical history significant for reported vocal cord paralysis s/p laryngoscopy with b/l true vocal cord injection/Laryngoplasty on 02/2020, insulin-dependent diabetes mellitus, diabetic neuropathy, hypertension, gastroesophageal reflux disease, dyslipidemia, hypothyroidism, gastric bypass, cholecystectomy and brain tumor which was initialy resected however noted to have recurrence s/p whole brain radiation x 1 ( 1 yr prior) , dysphagia with recurrant aspiration s/p PEG tube who presented to ER with nausea, vomitig and diarrhea. Patient denied any fever or chills. Had noted improvement in diarrhea frequency. No chest pain or dyspnea. Laboratory workup on arrival showed a WBC of 11.2, hemoglobin of 11.0, hematocrit of 36.3 and a platelet count of 281. INR 1.51. Sodium 133, potassium 5.8, chloride 99, bicarb 29, BUN 96 and creatinine of 1.2. This had increased from prior creatinine in June of 0.5. Glucose was elevated at 236. AST of 20, ALT of 25, alkaline phosphatase of 123 and a CK of 10. Lactic acid of 1.1. imaging studies included a CT abdomen pelvis which showed stable jejunostomy tube without evidence of surrounding fluid collection or abscess. Chest x-ray was negative for any acute cardiopulmonary abnormality. Vitals on arrival : BP 93/58, HR of 86, RR of 16, Temp of 97.5. Patient was given NS 1L bolus x 2, zofran 4 mg IV x 1 and admitted to hospital. Review of Systems General: Reports: 10 or more systems reviewed and unremarkable except in HPI and below Medications/Allergies Home Medications Medication Instructions Recorded Confirmed Last Taken Type Enema 118 ml IL DAILY PRN 07/03/20 07/28/20 Unknown History bisacodyl 10 mg IL DAILY PRN 07/03/20 07/28/20 Unknown History ondansetron HCl [Zofran] 4 mg PO Q6H PRN 07/03/20 07/28/20 07/02/20 History acetaminophen 500 mg FEEDING TUBE Q6H PRN #30 tab 07/09/20 07/28/20 Unknown Rx apixaban [Eliquis] 5 mg PEG-TUBE Q12H #60 tab 07/09/20 07/28/20 Unknown Rx atorvastatin 20 mg PO BEDTIME #30 tab 07/09/20 07/28/20 Unknown Rx chlorthalidone 25 mg FEEDING TUBE DAILY@08 #30 tab 07/09/20 07/28/20 Unknown Rx ergocalciferol (vitamin D2) 50,000 unit FEEDING TUBE Q7D #0 cap 07/09/20 07/28/20 07/02/20 Rx famotidine 20 mg PEG-TUBE BEDTIME #30 tab 07/09/20 07/28/20 Unknown Rx levothyroxine [Levoxyl] 100 mcg PEG-TUBE DAILY@06 #30 tab 07/09/20 07/28/20 Unknown Rx lisinopril 40 mg FEEDING TUBE DAILY@08 #0 tab 07/09/20 07/28/20 07/02/20 Rx magnesium hydroxide [Milk of 30 ml FEEDING TUBE DAILY PRN #0 ml 07/09/20 07/28/20 Unknown Rx Magnesia] metoprolol tartrate 25 mg FEEDING TUBE Q12H #0 tab 07/09/20 07/28/20 07/02/20 Rx ascorbic acid (vitamin C) [Vitamin 500 mg PO DAILY 07/28/20 07/28/20 Unknown History C] citalopram 10 mg FEEDING TUBE DAILY 07/28/20 07/28/20 Unknown History insulin glargine [Lantus U-100 10 unit SUBCUT BID 07/28/20 07/28/20 Unknown History Insulin] insulin regular human [Humulin R See Rx Instructions .ROUTE .COMPLEX 07/28/20 07/28/20 Unknown History Regular U-100 Insuln] loperamide [Imodium] 2 mg PO Q4H PRN 07/28/20 07/28/20 Unknown History Allergies Allergy/AdvReac Type Severity Reaction Status Date / Time amoxicillin [From Augmentin] Allergy Mild ADR-Diarrhe Verified 02/15/20 07:02 a ampicillin Allergy Mild ADR-Diarrhe Verified 02/15/20 07:02 a clavulanic acid Allergy Mild ADR-Diarrhe Verified 02/15/20 07:02 [From Augmentin] a doxycycline Allergy Mild ADR-Diarrhe Verified 02/15/20 07:02 a hydrocodone Allergy Mild ADR-Diarrhe Verified 02/15/20 07:02 a magnesium Allergy Mild ADR-Diarrhe Verified 02/15/20 07:02 a metformin Allergy Mild ADR-Diarrhe Verified 02/15/20 07:02 a penicillin V Allergy Mild ADR-Diarrhe Verified 02/15/20 07:02 a acyclovir AdvReac Mild ADR-Diarrhe Verified 02/15/20 07:02 a codeine AdvReac Mild ADR-Faintin Verified 02/15/20 07:02 g sulfamethoxazole AdvReac Mild ADR-Diarrhe Verified 02/15/20 07:02 [From Bactrim] a trimethoprim [From Bactrim] AdvReac Mild ADR-Diarrhe Verified 02/15/20 07:02 a PFSH Acute PFSH: Medical History (Updated 07/28/20 @ 16:55 by Terrell Casanova DO) Brain tumor Cricopharyngeal achalasia Diabetes mellitus, type II Diabetic polyneuropathy Essential hypertension, benign GERD (gastroesophageal reflux disease) Hyperlipidemia associated with type 2 diabetes mellitus Hypertension Patient has been controlled with oral blood pressure medications. Hypothyroid Smell, impaired Taste absent Vitamin D deficiency Patient has history of Vitamin D deficiency. Surgical History (Updated 07/28/20 @ 16:55 by Terrell Casanova DO) H/O brain surgery Brain Tumor removed 2011 History of bladder surgery S/P appendectomy S/P arthroscopy of left shoulder S/P cataract surgery S/P cholecystectomy S/P gastric bypass S/P vaginal hysterectomy Status post corneal transplant Social History Smoking and tobacco status: former smoker Second hand smoke exposure: No Smoking risk assessment/counseling performed?: No Alcohol intake: never Desire information about alcohol rehabilitation?: No Counseling given: No Desire information about substance/drug rehabilitation?: No Counseling given: No Vitals/I&O/Wt Last Vital Signs Temp 97.5 F L 07/28/20 10:44 Pulse 78 07/28/20 16:00 Resp 15 07/28/20 16:00 BP 108/50 07/28/20 16:00 Pulse Ox 96 07/28/20 16:00 07/28/20 07/28/20 07/28/20 06:59 14:59 22:59 Intake Total 1999 Balance 1999 Weight last 48 hrs Weight 56.699 kg Physical Exam Const: COMMON NORMALS: no acute distress EXAM LIMITATIONS: altered mental status (Chronic mild dementia) HENMT: COMMON NORMALS: normocephalic, atraumatic and hearing grossly normal bilaterally HEAD & SCALP: normocephalic and atraumatic Neck/C-Spine: COMMON NORMALS: no JVD Resp: COMMON NORMALS: normal respiratory effort, No retractions, No use of accessory muscles and clear to auscultation bilaterally AUSCULTATION: clear to auscultation bilaterally Cardio: COMMON NORMALS: no JVD, regular rate, regular rhythm and No murmurs present (Cardio) RATE: regular rate RHYTHM: regular rhythm GI: COMMON NORMALS: Soft to palpation and No hepatosplenomegaly present AUSCULTATION: Yes normoactive bowel sounds PALPATION: Yes Soft to palpation, No Tenderness to palpation present (GI), No Guarding due to palpation present (GI) and Yes No hepatosplenomegaly present OTHER: Peg tube in place, No surrounding erythema, or dishcarge Extremity: COMMON NORMALS: normal to inspection, capillary refill normal, no clubbing, cyanosis or edema, no calf tenderness and no pedal edema Skin: COMMON NORMALS: no rashes or lesions noted GENERAL SKIN EXAM: no rashes or lesions noted Data : 07/28/20 11:35 07/28/20 11:35 A&P Assessment and plan (1) Nausea & vomiting: Status: Acute (2) Acute renal failure: Status: Acute (3) Hypotensive episode: Status: Acute (4) Diabetes mellitus, type II: Status: Acute (5) Hyperlipidemia associated with type 2 diabetes mellitus: Status: Acute Dysphagia s/p J-Tube now with nausea & vomiting - Hx of Vocal cord dysfunction, Cricopharyngeal achalasia - Will resume tube feeding and monitor residuals - Dietary consult - Tube feeding recommendation - CT abd/pelvis - stable Jejunostomy tube, no surrounding fluid collection - No clear evidence of insertion site infection - Will start on Reglan 5 mg per J-tube scheduled q8hr - Zofran PRN for nausea Acute renal insufficiency - Likely pre-renal, no evidence of GI bleed - Creatinine increased to 1.2 - BUN - 96 - NS at 75 cc/hr - Repeat BMP in am - Monitor urine output Hyperkalemia - K 5.8 - Kayexelate 15g per jtube x1 - Repeat K in am - Monitor on tele Suspected UTI - Empirically started on Rocephin 1g daily - Follow up on culture hx of Hypertension, currently hypotensive - Likely due to held tube feeding with GI loss in addition to multiple antihypertensives - Will hold below meds for now and reintroduce gradually - Metoprolol PEG BID - Lisnopril 20 mg PEG daily - Chlorthalidone 25 mg PEG daily Insulin Dependent Diabetes - Sliding scale insulin - BS checks Q6hr while on tube feeding Hx of C-Diff Colitis - Tx with Vancomycin - If recurrence of diarrhea will check stool for cdiff Paroxysmal Atrial Fibrillation with NVR - On Eliquis 5 mg PO Q12hr - Metoprolol 25 mg PEG BID - held due to hypotension - Can re-start at 12.5 mg BID if rate increases Gasteroesophageal reflux disease - Pepcid 20 mg IV BID DVT ppx - Eliquis 5 mg BID Attestations Medical Necessity Statement*: Will require over two midnight stay for eval and treatment of dolores, hyperkalemia and uti Time Spent in Patient Care: Greater than 35 minutes (>than 50% of time spent in counselling and/or direct pt care on unit). Coding Level of Care Code Acute Regional Director Of Admissions for [facility] Fwd Diagnoses Nausea & vomiting R11.2 Acute renal failure N17.9 Hypotensive episode I95.9 Diabetes mellitus, type II E11.9 Hyperlipidemia associated with type 2 diabetes mellitus E11.69; E78.5
[2020-07-28] MEDS: sodium polystyrene sulfonate 15 gm/60 mL Btl J-TUBE (20:45)
[2020-07-28] MEDS: atorvastatin 40 mg Tablet 20 MG PO (20:46)
[2020-07-28] MEDS: apixaban 5 mg Tablet PEG-TUBE (20:46)
[2020-07-28] MEDS: sodium chloride 0.9% 1,000 ML 75 ML IV (20:47)
[2020-07-28] MEDS: cefTRIAXone 1,000 MG in sodium chloride 0.9% (plus) 50 ML 100 MG IV (20:47)
[2020-07-28] MEDS: famotidine 20 mg/2 mL INJ IVP (20:56)
[2020-07-29] VITALS: BP 95/54; PULSE 86; RESP 20; TEMP 36.6; O2SAT 93
[2020-07-29 01:19] LABS: Glucose Point of Care 159 mg/dL (70-110)
[2020-07-29 04:00] VITALS: BP 92/50; PULSE 103; RESP 18; TEMP 37; O2SAT 94
[2020-07-29 06:11] LABS: Basophils # 0.1 10^3/uL (0.0-0.1); Basophils % 0.9 %; Eosinophils # 0.1 10^3/uL (0.0-0.8); Eosinophils % 0.7 %; Hematocrit 34.9 % (37.0-47.0); Hemoglobin 10.4 g/dL (11.5-15.3); Lymphocytes # 0.8 10^3/uL (0.8-4.8); Mean Corpuscular HGB Conc 29.8 g/dL (30.0-36.0); Mean Corpuscular Hemoglobin 28.3 pg (28.0-34.0); Mean Corpuscular Volume 94.8 fL (81-99); Mean Platelet Volume 11.3 fL (7.4-10.4); Monocytes # 0.8 10^3/uL (0.2-0.9); Monocytes % 6.6 %; Neutrophils % 83.3 %; Nucleated Red Blood Cells % 0 %; Platelet Count 273 10^3/cmm (130-400); Red Blood Count 3.68 10^6/uL (4.1-5.3); Red Cell Distribution Width 15.6 % (12.1-15.1); White Blood Count 11.8 10^3/uL (4.0-10.0)
[2020-07-29] MEDS: levothyroxine 100 mcg Tablet PEG-TUBE (06:39)
[2020-07-29 06:43] LABS: Procalcitonin 0.17 ng/mL (0-0.5)
[2020-07-29 06:54] LABS: Alanine Aminotransferase 20 U/L (0-33); Albumin Level 2.4 g/dL (3.5-5.2); Alkaline Phosphatase 100 IU/L (35-105); Anion Gap 11.5 (5-19); Aspartate Amino Transferase 18 U/L (0-32); Blood Urea Nitrogen 76 mg/dL (8-23); Calcium 8.2 mg/dL (8.5-10.5); Carbon Dioxide 25 mmol/L (22-29); Chloride 108 mmol/L (98-107); Globulin 2.8 g/dL (1.3-4.6); Glucose 209 mg/dL (65-115); Magnesium 2.1 mg/dL (1.7-2.3); Osmolality Calculated 319 mOsm/kg (285-295); Potassium 4.5 mmol/L (3.5-5.1); Sodium 140 mmol/L (136-145); Total Bilirubin 0.4 mg/dL (0.15-1.2); Total Protein 5.2 g/dL (6.6-8.7)
[2020-07-29 08:00] VITALS: BP 99/63; PULSE 101; RESP 18; TEMP 36.4; O2SAT 95
[2020-07-29] MEDS: citalopram 20 mg Tablet 10 MG XX (08:57)
[2020-07-29] MEDS: acetaminophen 500 mg Tablet FEED TUBE (08:57)
[2020-07-29] MEDS: apixaban 5 mg Tablet PEG-TUBE ×2 (08:57→21:52)
[2020-07-29] MEDS: cefTRIAXone 1,000 MG in sodium chloride 0.9% (plus) 50 ML 100 MG IV ×2 (08:57→21:53)
[2020-07-29] MEDS: ondansetron 4 MG Tablet PO ×2 (08:57→21:55)
--- NOTE | 2020-07-29 08:57 | PC.NURSE ---
patient reports nausea and headache, PRN tylenol and zofran given per doctors orders see MAR for further details.
[2020-07-29] MEDS: sodium chloride 0.9% 1,000 ML 75 ML IV (08:58)
[2020-07-29] MEDS: insulin glargine 100 units/1 mL 10 UNIT SUBCUT ×2 (09:03→21:54)
[2020-07-29 09:06] LABS: Glucose Point of Care 192 mg/dL (70-110)
[2020-07-29] MEDS: famotidine 20 mg Tablet XX ×2 (09:24→17:02)
--- NOTE | 2020-07-29 09:30 | PC.NURSE ---
no further nausea noted, patient resting comfortably in bed, continue repositions [id number].
--- NOTE | 2020-07-29 10:35 | PC.OT ---
Attempted to see patient in a.m. She declined participation in evaluation due to extreme nausea. Will attempt later when appropriate.
[2020-07-29 12:00] VITALS: BP 96/59; PULSE 80; RESP 18; TEMP 37.1; O2SAT 99
--- NOTE | 2020-07-29 14:08 | PC.NUTR ---
NUTR TF RECOMMENDATIONS: Glucerna on continuous feed with goal rate of 40 ml/hr providing 1152 kcal (87%), 58 g PRO (102%), and 773 ml fluid (58%)(%NEEDS). Suggest starting TF at 20 ml/hr and increase by 10 ml Q6H as tolerated till goal rate is met. Suggest H2O flushes of 75 ml Q4H to approach fluid needs or per physician. BOLUS: 4 cans daily total over 3 feedings with 3/4 cup H2O flush after each feeding.
--- NOTE | 2020-07-29 14:54 | PC.NURSE ---
patient brief changed, large BM noted, cleaned, barrier ointment provided, repositioned with pillows, denies nausea or need for medication at this time.
--- NOTE | 2020-07-29 15:55 | P.PN_ITS ---
Subjective Subjective: Interval history: Noted to have improvement in nausea. No further episodes of vomiting or diarrhea. no fever or chills overnight. Medications: Reviewed: Yes Vitals/I&O/Wt Last Vital Signs Temp 98.7 F 07/29/20 12:00 Pulse 80 07/29/20 12:00 Resp 18 07/29/20 12:00 BP 96/59 07/29/20 12:00 Pulse Ox 99 07/29/20 12:00 07/29/20 07/29/20 07/29/20 06:59 14:59 22:59 Intake Total 913.75 / 913.75 Output Total 250 / 251 Balance -250 / 1799 913.75 / 913.75 Weight last 48 hrs Weight 56.699 kg Physical Exam Const: COMMON NORMALS: no acute distress EXAM LIMITATIONS: altered mental status (Chronic mild dementia) HENMT: COMMON NORMALS: normocephalic, atraumatic and hearing grossly normal bilaterally HEAD & SCALP: normocephalic and atraumatic Neck/C-Spine: COMMON NORMALS: no JVD Resp: COMMON NORMALS: normal respiratory effort, No retractions, No use of accessory muscles and clear to auscultation bilaterally AUSCULTATION: clear to auscultation bilaterally Cardio: COMMON NORMALS: no JVD, regular rate, regular rhythm and No murmurs present (Cardio) RATE: regular rate RHYTHM: regular rhythm GI: COMMON NORMALS: Soft to palpation and No hepatosplenomegaly present AUSCULTATION: Yes normoactive bowel sounds PALPATION: Yes Soft to palpation, No Tenderness to palpation present (GI), No Guarding due to palpation present (GI) and Yes No hepatosplenomegaly present OTHER: Peg tube in place, No surrounding erythema, or dishcarge Extremity: COMMON NORMALS: normal to inspection, capillary refill normal, no clubbing, cyanosis or edema, no calf tenderness and no pedal edema Skin: COMMON NORMALS: no rashes or lesions noted GENERAL SKIN EXAM: no rashes or lesions noted Data : 07/29/20 05:50 07/29/20 05:50 Micro: Microbiology 07/28/20 18:38 Occult Blood (FIT) - Final Stool Routine Collection A&P Assessment and plan (1) Nausea & vomiting: Status: Acute (2) Acute renal failure: Status: Acute (3) Hypotensive episode: Status: Acute (4) Diabetes mellitus, type II: Status: Acute (5) Hyperlipidemia associated with type 2 diabetes mellitus: Status: Acute Dysphagia s/p J-Tube now with nausea & vomiting - Hx of Vocal cord dysfunction, Cricopharyngeal achalasia - CT abd/pelvis - stable Jejunostomy tube, no surrounding fluid collection - No clear evidence of insertion site infection - Dietary consult - Tube feeding recommendation - Resume tube feeding today - Zofran PRN for nausea Acute renal insufficiency - Likely pre-renal, no evidence of GI bleed - Creatinine increased to 1.2 - 1.0 - NS at 75 cc/hr - Saline lock once resumed on tube feeding - Repeat BMP in am - Monitor urine output Hyperkalemia - Resolved - K 5.8 - 4.5 - Kayexelate 15g per jtube x1 on admit - Repeat K in am - Monitor on tele Suspected UTI - Empirically started on Rocephin 1g daily - Follow up on culture - pending hx of Hypertension, currently hypotensive - Likely due to held tube feeding with GI loss in addition to multiple antihypertensives - Will hold below meds for now and reintroduce gradually - Metoprolol PEG BID - Lisinopril 20 mg PEG daily - Chlorthalidone 25 mg PEG daily - Continue to hold PO antihypertensive Insulin Dependent Diabetes - Sliding scale insulin - BS checks Q6hr while on tube feeding Hx of C-Diff Colitis - Tx with Vancomycin - If recurrence of diarrhea will check stool for cdiff - Pending Paroxysmal Atrial Fibrillation with NVR - On Eliquis 5 mg PO Q12hr - Metoprolol 25 mg PEG BID - held due to hypotension - Can re-start at 12.5 mg BID if rate increases Gasteroesophageal reflux disease - Pepcid 20 mg IV BID DVT ppx - Eliquis 5 mg BID Attestations Medical Necessity Statement*: continue hospitalization for management of this urinary tract infection requiring IV antibiotics and nausea. Time Spent in Patient Care: Greater than 35 minutes (>than 50% of time spent in counselling and/or direct pt care on unit) . Coding Level of Care Code Acute C[employer] Machine Applicator for [facility] Fwd Diagnoses Nausea & vomiting R11.2 Acute renal failure N17.9 Hypotensive episode I95.9 Diabetes mellitus, type II E11.9 Hyperlipidemia associated with type 2 diabetes mellitus E11.69; E78.5
[2020-07-29 16:00] VITALS: BP 95/60; PULSE 90; RESP 18; TEMP 36.8; O2SAT 93
--- NOTE | 2020-07-29 16:53 | PC.NURSE ---
Linda tanner called and asked about patients tube feeding diet at halfway, nurse reports patient is on glucerna at 40mL/hr. Dr. Young notified and order to resume feeding at this rate.
[2020-07-29 20:00] VITALS: BP 100/63; PULSE 98; RESP 18; TEMP 37.1; O2SAT 95
[2020-07-29 21:08] LABS: Glucose Point of Care 140 mg/dL (70-110)
[2020-07-29] MEDS: atorvastatin 40 mg Tablet 20 MG PO (21:52)
--- NOTE | 2020-07-29 23:46 | PC.NURSE ---
patient complained of nausea at 2100 rounds , residual checked and noted to be less than 10, zofran administered.
--- NOTE | 2020-07-29 23:48 | PC.NURSE ---
Patient drain sponge changed. Soiled sponge removed, J tube site cleansed with Normal saline, patted dry and new drain sponge applied.
[2020-07-30] VITALS (11 sets, daily range): BP systolic 68–113; BP diastolic 40–71; PULSE 76–129; RESP 16–20; TEMP 36.4–36.9; O2SAT 91–99
[2020-07-30] MEDS: sodium chloride 0.9% 1,000 ML 75 ML IV ×2 (00:12→21:23)
--- NOTE | 2020-07-30 00:40 | PC.NURSE ---
patient brief changed, large bowel movement noted, barrier ointment applied, patient repositioned, call light within reach, patient tolerated well.
[2020-07-30] MEDS: metoprolol tartrate 1 mg/1 mL SDV 5 mL 2.5 MG IV (03:21)
--- NOTE | 2020-07-30 03:33 | PC.NURSE ---
Patient brief changed, large BM noted, blanchable reddness noted on patients magali area, magali care provided, barrier cream applied, patient repositioned, call light within reach, patient tolerated well.
[2020-07-30] MEDS: digoxin 250 mcg/ml INJ 2 mL IVP (04:40)
[2020-07-30 05:16] LABS: Basophils # 0.1 10^3/uL (0.0-0.1); Basophils % 0.6 %; Eosinophils # 0.2 10^3/uL (0.0-0.8); Eosinophils % 1.5 %; Hematocrit 32.7 % (37.0-47.0); Hemoglobin 9.9 g/dL (11.5-15.3); Lymphocytes # 0.9 10^3/uL (0.8-4.8); Lymphocytes % 5.9 %; Mean Corpuscular HGB Conc 30.3 g/dL (30.0-36.0); Mean Corpuscular Hemoglobin 28.4 pg (28.0-34.0); Mean Corpuscular Volume 93.7 fL (81-99); Mean Platelet Volume 11.3 fL (7.4-10.4); Monocytes # 0.7 10^3/uL (0.2-0.9); Monocytes % 4.9 %; Neutrophils # 12.61 10^3/uL (1.8-7.7); Neutrophils % 86.3 %; Nucleated Red Blood Cells % 0 %; Platelet Count 286 10^3/cmm (130-400); Red Blood Count 3.49 10^6/uL (4.1-5.3); Red Cell Distribution Width 15.9 % (12.1-15.1); White Blood Count 14.6 10^3/uL (4.0-10.0)
[2020-07-30 05:38] LABS: Alanine Aminotransferase 17 U/L (0-33); Albumin Level 1.9 g/dL (3.5-5.2); Alkaline Phosphatase 91 IU/L (35-105); Anion Gap 10.6 (5-19); Aspartate Amino Transferase 13 U/L (0-32); Blood Urea Nitrogen 66 mg/dL (8-23); Calcium 7.8 mg/dL (8.5-10.5); Carbon Dioxide 20 mmol/L (22-29); Chloride 116 mmol/L (98-107); Globulin 2.6 g/dL (1.3-4.6); Glucose 215 mg/dL (65-115); Osmolality Calculated 322 mOsm/kg (285-295); Potassium 3.6 mmol/L (3.5-5.1); Sodium 143 mmol/L (136-145); Total Bilirubin 0.3 mg/dL (0.15-1.2); Total Protein 4.5 g/dL (6.6-8.7)
[2020-07-30] MEDS: sodium chloride 0.9% 1,000 ML 999 ML IV (06:56)
[2020-07-30] MEDS: levothyroxine 100 mcg Tablet PEG-TUBE (06:56)
[2020-07-30 07:12] LABS: Glucose Point of Care 147 mg/dL (70-110)
[2020-07-30] MEDS: citalopram 20 mg Tablet 10 MG XX (08:53)
[2020-07-30] MEDS: cefTRIAXone 1,000 MG in sodium chloride 0.9% (plus) 50 ML 100 MG IV ×2 (08:53→21:11)
[2020-07-30] MEDS: apixaban 5 mg Tablet PEG-TUBE ×2 (08:53→21:11)
[2020-07-30] MEDS: famotidine 20 mg Tablet XX ×2 (08:54→18:32)
[2020-07-30] MEDS: insulin glargine 100 units/1 mL 10 UNIT SUBCUT ×2 (08:54→21:11)
[2020-07-30] MEDS: ondansetron 4 MG Tablet PO (10:09)
[2020-07-30] MEDS: metoclopramide 5 mg/mL SDV 2 mL 10 MG IVP ×2 (11:10→18:32)
--- NOTE | 2020-07-30 11:11 | PC.OT ---
Occupational therapy evaluation attempted a while after anti-nausea meds given. Patient started dry heaving when attempting to sit up. Patient was unable to answer evaluation questions or participate due to current status. Will attempt later.
[2020-07-30 12:28] LABS: Glucose Point of Care 70 mg/dL (70-110)
--- NOTE | 2020-07-30 15:00 | P.PN_ITS ---
Subjective Subjective: Interval history: Noted to have improvement in nausea. No further episodes of vomiting or diarrhea. no fever or chills overnight. Noted heart rate fluctuations Medications: Reviewed: Yes Vitals/I&O/Wt Last Vital Signs Temp 97.5 F L 07/31/20 03:21 Pulse 79 07/31/20 03:21 Resp 16 07/31/20 03:21 BP 122/60 07/31/20 03:21 Pulse Ox 95 07/31/20 03:21 07/30/20 07/31/20 07/31/20 22:59 06:59 14:59 Intake Total 983.35 / 1033.35 Balance 983.35 / 1033.35 Physical Exam Const: COMMON NORMALS: no acute distress EXAM LIMITATIONS: altered mental status (Chronic mild dementia) HENMT: COMMON NORMALS: normocephalic, atraumatic and hearing grossly normal bilaterally HEAD & SCALP: normocephalic and atraumatic Neck/C-Spine: COMMON NORMALS: no JVD Resp: COMMON NORMALS: normal respiratory effort, No retractions, No use of accessory muscles and clear to auscultation bilaterally AUSCULTATION: clear to auscultation bilaterally Cardio: COMMON NORMALS: no JVD, regular rate, regular rhythm and No murmurs present (Cardio) RATE: regular rate RHYTHM: regular rhythm GI: COMMON NORMALS: Soft to palpation and No hepatosplenomegaly present AUSCULTATION: Yes normoactive bowel sounds PALPATION: Yes Soft to palpation, No Tenderness to palpation present (GI), No Guarding due to palpation present (GI) and Yes No hepatosplenomegaly present OTHER: Peg tube in place, No s urrounding erythema, or dishcarge Extremity: COMMON NORMALS: normal to inspection, capillary refill normal, no clubbing, cyanosis or edema, no calf tenderness and no pedal edema Skin: COMMON NORMALS: no rashes or lesions noted GENERAL SKIN EXAM: no rashes or lesions noted Data : 07/31/20 04:02 07/31/20 04:02 Micro: Microbiology 07/28/20 12:05 Urine Culture - Final Urine,Clean Catch A&P Assessment and plan (1) Nausea & vomiting: Status: Acute (2) Acute renal failure: Status: Acute (3) Hypotensive episode: Status: Acute (4) Diabetes mellitus, type II: Status: Acute (5) Hyperlipidemia associated with type 2 diabetes mellitus: Status: Acute Dysphagia s/p J-Tube now with nausea & vomiting - Hx of Vocal cord dysfunction, Cricopharyngeal achalasia - CT abd/pelvis - stable Jejunostomy tube, no surrounding fluid collection - No clear evidence of insertion site infection - Dietary consult - Tube feeding recommendation - Resume tube feeding today - Zofran PRN for nausea Acute renal insufficiency - Likely pre-renal, no evidence of GI bleed - Creatinine increased to 1.2 - 1.0 - NS at 75 cc/hr - Saline lock once resumed on tube feeding - Repeat BMP in am - Monitor urine output Hyperkalemia - Resolved - K 5.8 - 4.5 - Kayexelate 15g per jtube x1 on admit - Repeat K in am - Monitor on tele Suspected UTI - Empirically started on Rocephin 1g daily - Follow up on culture - pending hx of Hypertension, currently hypotensive - Likely due to held tube feeding with GI loss in addition to multiple antihypertensives - Will hold below meds for now and reintroduce gradually - Metoprolol PEG BID - Lisinopril 20 mg PEG daily - Chlorthalidone 25 mg PEG daily - Continue to hold PO antihypertensive Insulin Dependent Diabetes - Sliding scale insulin - BS checks Q6hr while on tube feeding Hx of C-Diff Colitis - Tx with Vancomycin - If recurrence of diarrhea will check stool for cdiff - Pending Paroxysmal Atrial Fibrillation with NVR - On Eliquis 5 mg PO Q12hr - Metoprolol 25 mg PEG BID - held due to hypotension - Can re-start at 12.5 mg BID if rate increases Gasteroesophageal reflux disease - Pepcid 20 mg IV BID DVT ppx - Eliquis 5 mg BID Attestations Medical Necessity Statement*: Continue until improvement in nausea Time Spent in Patient Care: Greater than 35 minutes Coding Level of Care Code Acute Pharmaceutical Laboratory Technician for g Fwd Diagnoses Nausea & vomiting R11.2 Acute renal failure N17.9 Hypotensive episode I95.9 Diabetes mellitus, type II E11.9 Hyperlipidemia associated with type 2 diabetes mellitus E11.69; E78.5
[2020-07-30] MEDS: dextrose 50% syringe 50 mL IVP (16:49)
[2020-07-30 16:59] LABS: Glucose Point of Care 47 mg/dL (70-110)
[2020-07-30 16:59] LABS: Glucose Point of Care 54 mg/dL (70-110)
[2020-07-30 17:58] LABS: Glucose Point of Care 92 mg/dL (70-110)
[2020-07-30 20:54] LABS: Glucose Point of Care 99 mg/dL (70-110)
[2020-07-30] MEDS: atorvastatin 40 mg Tablet 20 MG PO (21:11)
[2020-07-31 03:21] VITALS: BP 122/60; PULSE 79; RESP 16; TEMP 36.4; O2SAT 95
[2020-07-31 04:16] LABS: Basophils % 0.3 %; Eosinophils # 0.2 10^3/uL (0.0-0.8); Eosinophils % 1.9 %; Hematocrit 32.9 % (37.0-47.0); Lymphocytes # 1.1 10^3/uL (0.8-4.8); Lymphocytes % 8.8 %; Mean Corpuscular HGB Conc 30.4 g/dL (30.0-36.0); Mean Corpuscular Hemoglobin 28.8 pg (28.0-34.0); Mean Corpuscular Volume 94.8 fL (81-99); Mean Platelet Volume 10.6 fL (7.4-10.4); Monocytes # 0.7 10^3/uL (0.2-0.9); Neutrophils % 81.8 %; Nucleated Red Blood Cells % 0 %; Platelet Count 279 10^3/cmm (130-400); Red Blood Count 3.47 10^6/uL (4.1-5.3); Red Cell Distribution Width 15.9 % (12.1-15.1); White Blood Count 12.1 10^3/uL (4.0-10.0)
[2020-07-31 04:34] LABS: Calcium 7.7 mg/dL (8.5-10.5); Total Bilirubin 0.2 mg/dL (0.15-1.2)
[2020-07-31 05:42] LABS: Alanine Aminotransferase 22 U/L (0-33); Albumin Level 1.8 g/dL (3.5-5.2); Alkaline Phosphatase 126 IU/L (35-105); Anion Gap 10.9 (5-19); Aspartate Amino Transferase 22 U/L (0-32); Blood Urea Nitrogen 47 mg/dL (8-23); Carbon Dioxide 20 mmol/L (22-29); Chloride 117 mmol/L (98-107); Globulin 2.6 g/dL (1.3-4.6); Glucose 143 mg/dL (65-115); Osmolality Calculated 315 mOsm/kg (285-295); Sodium 145 mmol/L (136-145); Total Protein 4.4 g/dL (6.6-8.7)
[2020-07-31] MEDS: levothyroxine 100 mcg Tablet PEG-TUBE (05:50)
[2020-07-31 06:08] LABS: Potassium 2.9 mmol/L (3.5-5.1)
[2020-07-31 06:46] LABS: Glucose Point of Care 122 mg/dL (70-110)
[2020-07-31 07:34] VITALS: BP 130/69; RESP 18; TEMP 36.5; O2SAT 97
--- NOTE | 2020-07-31 08:32 | PC.SOCIAL ---
*IMM* Patient received the Important Message from Medicare. She understood what was explained to her. Copy placed in the chart.
[2020-07-31] MEDS: metoclopramide 5 mg/mL SDV 2 mL 10 MG IVP ×2 (08:39→16:46)
[2020-07-31] MEDS: famotidine 20 mg Tablet XX ×2 (09:06→19:00)
[2020-07-31] MEDS: citalopram 20 mg Tablet 10 MG XX (09:07)
[2020-07-31] MEDS: apixaban 5 mg Tablet PEG-TUBE ×2 (09:07→21:51)
[2020-07-31] MEDS: cefTRIAXone 1,000 MG in sodium chloride 0.9% (plus) 50 ML 100 MG IV (09:07)
[2020-07-31] MEDS: insulin glargine 100 units/1 mL 10 UNIT SUBCUT (09:12)
--- NOTE | 2020-07-31 09:27 | PM.PN ---
Subjective Subjective: Interval history: Patient continued to have dry heaving, did note improvement with reglan. NO fever or chills Low K - replacement ordered. Medications: Reviewed: Yes Vitals/I&O/Wt Last Vital Signs Temp 98.8 F 07/31/20 11:14 Pulse 94 07/31/20 11:14 Resp 18 07/31/20 11:14 BP 106/64 07/31/20 11:14 Pulse Ox 94 07/31/20 11:14 07/30/20 07/31/20 07/31/20 22:59 06:59 14:59 Intake Total 1033.35 / 1083.35 180 / 180 Balance 1033.35 / 1083.35 180 / 180 Physical Exam Const: COMMON NORMALS: no acute distress EXAM LIMITATIONS: altered mental status (Chronic mild dementia) HENMT: COMMON NORMALS: normocephalic, atraumatic and hearing grossly normal bilaterally HEAD & SCALP: normocephalic and atraumatic Neck/C-Spine: COMMON NORMALS: no JVD Resp: COMMON NORMALS: normal respiratory effort, No retractions, No use of accessory muscles and clear to auscultation bilaterally AUSCULTATION: clear to auscultation bilaterally Cardio: COMMON NORMALS: no JVD, regular rate, regular rhythm and No murmurs present (Cardio) RATE: regular rate RHYTHM: regular rhythm GI: COMMON NORMALS: Soft to palpation and No hepatosplenomegaly present AUSCULTATION: Yes normoactive bowel sounds PALPATION: Yes Soft to palpation, No Tenderness to palpation present (GI), No Guarding due to palpation present (GI) and Yes No hepatosplenomegaly present OTHER: Peg tube in place, No surrounding erythema, or dishcarge Extremity: COMMON NORMALS: normal to inspection, capillary refill normal, no clubbing, cyanosis or edema, no calf tenderness and no pedal edema Skin: COMMON NORMALS: no rashes or lesions noted GENERAL SKIN EXAM: no rashes or lesions noted Data : 07/31/20 04:02 07/31/20 04:02 Micro: Microbiology 07/28/20 12:05 Urine Culture - Final Urine,Clean Catch A&P Assessment and plan (1) Nausea & vomiting: Status: Acute (2) Acute renal failure: Status: Acute (3) Hypotensive episode: Status: Acute (4) Diabetes mellitus, type II: Status: Acute (5) Hyperlipidemia associated with type 2 diabetes mellitus: Status: Acute Dysphagia s/p J-Tube now with Intractable Nausea - Hx of Vocal cord dysfunction, Cricopharyngeal achalasia - CT abd/pelvis - stable Jejunostomy tube, no surrounding fluid collection - No clear evidence of insertion site infection - Tube feeding resumed - Reglan 10 mg IV q8hr scheduled - Zofran PRN for nausea Acute renal insufficiency - RESOLVED - Likely pre-renal, no evidence of GI bleed - Creatinine increased to 1.2 - 1.0 - 0/9 - Saline lock once resumed on tube feeding - Repeat BMP in am - Monitor urine output Hypokalemia - KCL 40 Meq IV x 1 now - Repeat K in am - Monitor on tele Ruled out UTI - D/C Rocephin 1g daily - Culture negative hx of Hypertension, currently hypotensive - Likely due to held tube feeding with GI loss in addition to multiple antihypertensives - Will hold below meds for now and reintroduce gradually - Metoprolol PEG BID - Lisinopril 20 mg PEG daily - Chlorthalidone 25 mg PEG daily - Continue to hold PO antihypertensive Insulin Dependent Diabetes - Sliding scale insulin - BS checks Q6hr while on tube feeding Hx of C-Diff Colitis - Tx with Vancomycin - If recurrence of diarrhea will check stool for cdiff - Pending Paroxysmal Atrial Fibrillation with NVR - On Eliquis 5 mg PO Q12hr - Metoprolol 12.5 mg PO BID resumed - Hold if SBP< 90 or HR < 55 Gasteroesophageal reflux disease - Pepcid 20 mg IV BID DVT ppx - Eliquis 5 mg BID Attestations Medical Necessity Statement*: Will require further hospitalization for management of intractable nausea, hypokalemia Time Spent in Patient Care: Greater than 35 minutes (>than 50% of time spent in counselling and/or direct pt care on unit). Coding Level of Care Code Acute Software Test And Validation Engineer for [facility] Fwd Diagnoses Nausea & vomiting R11.2 Acute renal failure N17.9 Hypotensive episode I95.9 Diabetes mellitus, type II E11.9 Hyperlipidemia associated with type 2 diabetes mellitus E11.69; E78.5
[2020-07-31 10:39] LABS: Glucose Point of Care 146 mg/dL (70-110)
[2020-07-31 11:14] VITALS: BP 106/64; PULSE 94; RESP 18; TEMP 37.1; O2SAT 94
[2020-07-31] MEDS: ondansetron 4 MG Tablet PO (12:02)
[2020-07-31 15:49] VITALS: BP 135/75; PULSE 87; RESP 16; TEMP 36.7; O2SAT 96
[2020-07-31] MEDS: lidocaine 1% INJ 20 mL 5 ML IV (16:31)
[2020-07-31] MEDS: potassium chloride premix 100 ML 25 MEQ IV (16:31)
[2020-07-31] MEDS: dextrose 50% syringe 50 mL 25 ML IVP (16:45)
[2020-07-31 17:02] LABS: Glucose Point of Care 69 mg/dL (70-110)
[2020-07-31 17:09] LABS: Glucose Point of Care 62 mg/dL (70-110)
[2020-07-31] MEDS: dextrose 5 % 500 ML 100 ML IV (17:29)
--- NOTE | 2020-07-31 17:35 | PC.NURSE ---
blood sugar at 1700 was 69, jodi kingston gave ivp of D50 after 15 min blood sugar was 62, this nurse continued protocol and started dextrose 5%. Dr Young informed.
[2020-07-31 18:06] LABS: Glucose Point of Care 91 mg/dL (70-110)
[2020-07-31 20:00] VITALS: BP 134/78; PULSE 83; RESP 16; TEMP 36.4; O2SAT 100
[2020-07-31 21:33] LABS: Glucose Point of Care 104 mg/dL (70-110)
[2020-07-31] MEDS: metoprolol tartrate 25 mg Tablet 12.5 MG PO (21:51)
[2020-07-31] MEDS: atorvastatin 40 mg Tablet 20 MG PO (21:51)
[2020-08-01] VITALS (8 sets, daily range): BP systolic 99–154; BP diastolic 55–89; PULSE 66–91; RESP 16–18; TEMP 36.3–36.6; O2SAT 93–100
[2020-08-01] MEDS: metoclopramide 5 mg/mL SDV 2 mL 10 MG IVP ×3 (00:33→18:18)
[2020-08-01 05:09] LABS: Basophils # 0.1 10^3/uL (0.0-0.1); Basophils % 0.8 %; Eosinophils # 0.2 10^3/uL (0.0-0.8); Eosinophils % 1.8 %; Hematocrit 38.4 % (37.0-47.0); Hemoglobin 10.6 g/dL (11.5-15.3); Lymphocytes % 18.8 %; Mean Corpuscular HGB Conc 27.6 g/dL (30.0-36.0); Mean Corpuscular Hemoglobin 28.7 pg (28.0-34.0); Mean Corpuscular Volume 104.1 fL (81-99); Mean Platelet Volume 10.6 fL (7.4-10.4); Monocytes # 1.4 10^3/uL (0.2-0.9); Monocytes % 12.5 %; Neutrophils # 7.02 10^3/uL (1.8-7.7); Neutrophils % 64.9 %; Nucleated Red Blood Cells % 0 %; Platelet Count 279 10^3/cmm (130-400); Red Blood Count 3.69 10^6/uL (4.1-5.3); Red Cell Distribution Width 15.7 % (12.1-15.1); White Blood Count 10.8 10^3/uL (4.0-10.0)
[2020-08-01] MEDS: levothyroxine 100 mcg Tablet PEG-TUBE (06:35)
[2020-08-01 06:56] LABS: Alanine Aminotransferase 22 U/L (0-33); Albumin Level 1.9 g/dL (3.5-5.2); Alkaline Phosphatase 115 IU/L (35-105); Anion Gap 13.6 (5-19); Aspartate Amino Transferase 29 U/L (0-32); Blood Urea Nitrogen 36 mg/dL (8-23); Calcium 7.9 mg/dL (8.5-10.5); Carbon Dioxide 18 mmol/L (22-29); Chloride 116 mmol/L (98-107); Globulin 2.7 g/dL (1.3-4.6); Glucose 150 mg/dL (65-115); Osmolality Calculated 309 mOsm/kg (285-295); Potassium 3.6 mmol/L (3.5-5.1); Sodium 144 mmol/L (136-145); Total Bilirubin 0.3 mg/dL (0.15-1.2); Total Protein 4.6 g/dL (6.6-8.7)
[2020-08-01 07:09] LABS: Glucose Point of Care 142 mg/dL (70-110)
[2020-08-01 07:09] LABS: Glucose Point of Care 120 mg/dL (70-110)
[2020-08-01] MEDS: famotidine 20 mg Tablet XX ×2 (10:18→18:18)
[2020-08-01] MEDS: ondansetron 4 MG Tablet PO (10:18)
[2020-08-01] MEDS: apixaban 5 mg Tablet PEG-TUBE ×2 (10:18→21:14)
[2020-08-01] MEDS: citalopram 20 mg Tablet 10 MG XX (10:19)
[2020-08-01] MEDS: metoprolol tartrate 25 mg Tablet 12.5 MG PO ×2 (10:19→21:08)
[2020-08-01] MEDS: insulin glargine 100 units/1 mL 10 UNIT SUBCUT (10:22)
[2020-08-01 11:36] LABS: Glucose Point of Care 202 mg/dL (70-110)
--- NOTE | 2020-08-01 11:49 | PM.PN ---
Subjective Subjective: Interval history: Patient continued to have diarrhea, nausea and dry heaving. Results yesterday returned positive for C diff colitis. Did not have any fever or chills overnight. Medications: Reviewed: Yes Vitals/I&O/Wt Last Vital Signs Temp 97.4 F L 08/01/20 11:31 Pulse 90 08/01/20 11:31 Resp 18 08/01/20 11:31 BP 132/78 08/01/20 11:31 Pulse Ox 94 08/01/20 11:31 07/31/20 08/01/20 08/01/20 22:59 06:59 14:59 Intake Total 630 / 810 200 / 200 Output Total 0 / 0 Balance 630 / 810 200 / 200 Physical Exam Const: COMMON NORMALS: no acute distress EXAM LIMITATIONS: altered mental status (Chronic mild dementia) HENMT: COMMON NORMALS: normocephalic, atraumatic and hearing grossly normal bilaterally HEAD & SCALP: normocephalic and atraumatic Neck/C-Spine: COMMON NORMALS: no JVD Resp: COMMON NORMALS: normal respiratory effort, No retractions, No use of accessory muscles and clear to auscultation bilaterally AUSCULTATION: clear to auscultation bilaterally Cardio: COMMON NORMALS: no JVD, regular rate, regular rhythm and No murmurs present (Cardio) RATE: regular rate RHYTHM: regular rhythm GI: COMMON NORMALS: Soft to palpation and No hepatosplenomegaly present AUSCULTATION: Yes normoactive bowel sounds PALPATION: Yes Soft to palpation, No Tenderness to palpation present (GI), No Guarding due to palpation present (GI) and Yes No hepatosplenomegaly present OTHER: Peg tube in place, No surrounding erythema, or dishcarge Extremity: COMMON NORMALS: normal to inspection, capillary refill normal, no clubbing, cyanosis or edema, no calf tenderness and no pedal edema Skin: COMMON NORMALS: no rashes or lesions noted GENERAL SKIN EXAM: no rashes or lesions noted Data : 08/01/20 04:22 08/01/20 04:22 A&P Assessment and plan (1) Nausea & vomiting: Status: Acute (2) Acute renal failure: Status: Acute (3) Hypotensive episode: Status: Acute (4) Diabetes mellitus, type II: Status: Acute (5) Hyperlipidemia associated with type 2 diabetes mellitus: Status: Acute Intractable nausea, diarrhea - Found to have C-diff colitis - Started on Vancomycin 125 mg Per J-tube QID - Repeat BMP in am - OK to continue tube feeding - Contact precautions Dysphagia s/p J-Tube - Hx of Vocal cord dysfunction, Cricopharyngeal achalasia - CT abd/pelvis - stable Jejunostomy tube, no surrounding fluid collection - No clear evidence of insertion site infection - Tube feeding resumed at goal - Reglan 10 mg IV q8hr change to PRN - Zofran PRN for nausea Acute renal insufficiency - RESOLVED - Likely pre-renal, no evidence of GI bleed - Creatinine increased to 1.2 - 1.0 - 0/9 - Saline lock once resumed on tube feeding - Repeat BMP in am - Monitor urine output Hypokalemia - Resolved - Replaced - Repeat K in am - Monitor on tele Ruled out UTI - D/C Rocephin 1g daily - Culture negative hx of Hypertension, currently hypotensive - Likely due to held tube feeding with GI loss in addition to multiple antihypertensives - Will hold below meds for now and reintroduce gradually - Metoprolol PEG BID - Metoprolol 12.5 mg Per Jtube resumed - Lisinopril 20 mg PEG daily - Chlorthalidone 25 mg PEG daily - Continue to hold PO antihypertensive Insulin Dependent Diabetes - Sliding scale insulin - BS checks Q6hr while on tube feeding Paroxysmal Atrial Fibrillation with NVR - On Eliquis 5 mg PO Q12hr - Metoprolol 12.5 mg PO BID resumed - Hold if SBP< 90 or HR < 55 - Stable Gasteroesophageal reflux disease - Pepcid 20 mg IV BID DVT ppx - Eliquis 5 mg BID Disposition - Anticipate discharge once stool more formed and improvement in nausea/dry heaving. Attestations Medical Necessity Statement*: Will require further hospitalization for management of c-diff colitis. Time Spent in Patient Care: Greater than 35 minutes (>than 50% of time spent in counselling and/or direct pt care on unit). Coding Level of Care Code Acute Hospital Clinic Assistant for [facility] Fwd Diagnoses Nausea & vomiting R11.2 Acute renal failure N17.9 Hypotensive episode I95.9 Diabetes mellitus, type II E11.9 Hyperlipidemia associated with type 2 diabetes mellitus E11.69; E78.5
[2020-08-01 17:19] LABS: Glucose Point of Care 112 mg/dL (70-110)
[2020-08-01 20:28] LABS: Glucose Point of Care 102 mg/dL (70-110)
[2020-08-01] MEDS: atorvastatin 40 mg Tablet 20 MG PO (21:08)
[2020-08-02] MEDS: metoclopramide 5 mg/mL SDV 2 mL 10 MG IVP ×2 (02:08→10:23)
[2020-08-02 05:14] VITALS: BP 135/77; PULSE 78; RESP 18; TEMP 36.6; O2SAT 98
[2020-08-02 05:20] LABS: Basophils % 0.5 %; Eosinophils # 0.2 10^3/uL (0.0-0.8); Eosinophils % 2.1 %; Hematocrit 36.3 % (37.0-47.0); Hemoglobin 10.5 g/dL (11.5-15.3); Lymphocytes # 1.9 10^3/uL (0.8-4.8); Lymphocytes % 23.1 %; Mean Corpuscular HGB Conc 28.9 g/dL (30.0-36.0); Mean Corpuscular Volume 100.3 fL (81-99); Mean Platelet Volume 10.5 fL (7.4-10.4); Monocytes # 0.9 10^3/uL (0.2-0.9); Monocytes % 10.8 %; Neutrophils # 5.11 10^3/uL (1.8-7.7); Neutrophils % 62.4 %; Nucleated Red Blood Cells % 0 %; Platelet Count 286 10^3/cmm (130-400); Red Blood Count 3.62 10^6/uL (4.1-5.3); Red Cell Distribution Width 15.7 % (12.1-15.1); White Blood Count 8.2 10^3/uL (4.0-10.0)
[2020-08-02 05:46] LABS: Alanine Aminotransferase 28 U/L (0-33); Albumin Level 1.9 g/dL (3.5-5.2); Alkaline Phosphatase 111 IU/L (35-105); Anion Gap 8.4 (5-19); Aspartate Amino Transferase 38 U/L (0-32); Blood Urea Nitrogen 29 mg/dL (8-23); Calcium 7.8 mg/dL (8.5-10.5); Carbon Dioxide 22 mmol/L (22-29); Chloride 116 mmol/L (98-107); Globulin 2.7 g/dL (1.3-4.6); Glucose 154 mg/dL (65-115); Osmolality Calculated 305 mOsm/kg (285-295); Potassium 3.4 mmol/L (3.5-5.1); Sodium 143 mmol/L (136-145); Total Bilirubin 0.3 mg/dL (0.15-1.2); Total Protein 4.6 g/dL (6.6-8.7)
[2020-08-02] MEDS: levothyroxine 100 mcg Tablet PEG-TUBE (06:03)
[2020-08-02 07:14] LABS: Glucose Point of Care 156 mg/dL (70-110)
[2020-08-02 08:00] VITALS: BP 117/72; BP 122/74; PULSE 65; PULSE 77; RESP 16; RESP 17; TEMP 36.6; O2SAT 93
[2020-08-02] MEDS: famotidine 20 mg Tablet XX (10:22)
[2020-08-02] MEDS: ondansetron 4 MG Tablet PO (10:22)
[2020-08-02] MEDS: apixaban 5 mg Tablet PEG-TUBE (10:23)
[2020-08-02] MEDS: citalopram 20 mg Tablet 10 MG XX (10:23)
[2020-08-02] MEDS: metoprolol tartrate 25 mg Tablet 12.5 MG PO (10:23)
[2020-08-02] MEDS: insulin glargine 100 units/1 mL 10 UNIT SUBCUT (10:24)
--- NOTE | 2020-08-02 11:46 | PC.SOCIAL ---
IMM Updated Updated pt's daughter Juana, on Pg 2 IMM. No questions voiced. Signed, dated, & timed copy in chart.
[2020-08-02 12:00] VITALS: BP 117/72; PULSE 65; RESP 17; TEMP 36.6; O2SAT 98
[2020-08-02] MEDS: potassium chloride ER 20 mEq Tablet PO (14:15)
--- NOTE | 2020-08-02 15:45 | PC.OT ---
OT NOTE: OT TREATMENT WITHHELD TODAY DUE TO PATIENT SCHEDULED DISCHARGE
[2020-08-02 16:00] VITALS: BP 123/73; PULSE 79; RESP 17; TEMP 36.4; O2SAT 96
--- NOTE | 2020-08-02 16:03 | PM.DCS ---
Discharge Providers Date of Admission: 07/28/20 14:22 Date of Discharge: August 02, 2020 Attending Provider at Admission: Ricco Young Attending Provider at Discharge: Ricco Young Primary Care Provider: AMY Cordova Diagnoses at Discharge Discharge Diagnosis (1) Nausea & vomiting: Status: Acute (2) Acute renal failure: Status: Acute (3) Hypotensive episode: Status: Acute (4) Diabetes mellitus, type II: Status: Acute (5) Hyperlipidemia associated with type 2 diabetes mellitus: Status: Acute Reason for Visit Reason for Visit: NAUSEA Hospital Course Hospital Course 80-year-old female with a past medical history significant for reported vocal cord paralysis s/p laryngoscopy with b/l true vocal cord injection/Laryngoplasty on 02/2020, insulin-dependent diabetes mellitus, diabetic neuropathy, hypertension, gastroesophageal reflux disease, dyslipidemia, hypothyroidism, gastric bypass, cholecystectomy and brain tumor which was initialy resected however noted to have recurrence s/p whole brain radiation x 1 ( 1 yr prior) , dysphagia with recurrant aspiration s/p PEG tube who presented to ER with nausea, vomitig and diarrhea. Patient denied any fever or chills. Had noted improvement in diarrhea frequency. No chest pain or dyspnea. Laboratory workup on arrival showed a WBC of 11.2, hemoglobin of 11.0, hematocrit of 36.3 and a platelet count of 281. INR 1.51. Sodium 133, potassium 5.8, chloride 99, bicarb 29, BUN 96 and creatinine of 1.2. This had increased from prior creatinine in June of 0.5. Glucose was elevated at 236. AST of 20, ALT of 25, alkaline phosphatase of 123 and a CK of 10. Lactic acid of 1.1. imaging studies included a CT abdomen pelvis which showed stable jejunostomy tube without evidence of surrounding fluid collection or abscess. Chest x-ray was negative for any acute cardiopulmonary abnormality. Vitals on arrival : BP 93/58, HR of 86, RR of 16, Temp of 97.5. Patient was given NS 1L bolus x 2, zofran 4 mg IV x 1 and admitted to hospital. Patient was initially started on IV Rocephin for suspected urinary tract infection. Cultures were negative and this was ruled out. Also during this time patient had diarrhea which had persisted throughout hospitalization. C diff was sent on admission and reported on 07/31/2020. At this time patient was initiated on oral vancomycin. Patient did not have any evidence of allergic reaction however at the time of discharge family and outpatient pharmacist raise concern for possible allergic reaction to vancomycin in the past. Her stools were significantly more formed and decreased in frequency. Due to this she was prescribed fidaxomicin 200 mg q.12 hours for 10 days. Additional medication changes included holding Lantus due to hypoglycemic episodes, decreasing Eliquis to 2.5 mg q.12 hours which was discussed with outpatient pharmacist and holding any antidiarrheals. Also advised to hold antihypertensives other than metoprolol 12.5 mg oral b.I.d. due to hypotensive episodes. Patient was wanting to be discharged stating that she would recover better at home. Hospital bed was also arranged has patient is a significant aspiration risk and would require a 30 degree elevation at the head of bed to prevent aspiration. Patient has 2 feeds were resumed which he tolerated. Home care was also arranged. Physical Exam Const: COMMON NORMALS: no acute distress EXAM LIMITATIONS: altered mental status (Chronic mild dementia) HENMT: COMMON NORMALS: normocephalic, atraumatic and hearing grossly normal bilaterally HEAD & SCALP: normocephalic and atraumatic Neck/C-Spine: COMMON NORMALS: no JVD Resp: COMMON NORMALS: normal respiratory effort, No retractions, No use of accessory muscles and clear to auscultation bilaterally AUSCULTATION: clear to auscultation bilaterally Cardio: COMMON NORMALS: no JVD, regular rate, regular rhythm and No murmurs present (Cardio) RATE: regular rate RHYTHM: regular rhythm GI: COMMON NORMALS: Soft to palpation and No hepatosplenomegaly present AUSCULTATION: Yes normoactive bowel sounds PALPATION: Yes Soft to palpation, No Tenderness to palpation present (GI), No Guarding due to palpation present (GI) and Yes No hepatosplenomegaly present OTHER: Peg tube in place, No surrounding erythema, or dishcarge Extremity: COMMON NORMALS: normal to inspection, capillary refill normal, no clubbing, cyanosis or edema, no calf tenderness and no pedal edema Skin: COMMON NORMALS: no rashes or lesions noted GENERAL SKIN EXAM: no rashes or lesions noted Discharge Data Data Completed and Pending: Completed Studies During Hospitalization Category Date Time Status CT abdomen pelvis w con* [id number] Stat Cat Scan 07/28/20 10:56 Completed XR chest 1V yenifer ble [id number] Stat Exams 07/28/20 10:56 Completed Labs from last 24 hours 08/02/20 08/02/20 08/02/20 06:54 05:01 05:01 WBC 8.2 RBC 3.62 L Hgb 10.5 L Hct 36.3 L MCV 100.3 H MCH 29.0 MCHC 28.9 L RDW 15.7 H Plt Count 286 MPV 10.5 H Neut % (Auto) 62.4 Lymph % (Auto) 23.1 [place] % (Auto) 10.8 Eos % (Auto) 2.1 Baso % (Auto) 0.5 Neut # (Auto) 5.11 Lymph # (Auto) 1.9 [place] # (Auto) 0.9 Eos # (Auto) 0.2 Baso # (Auto) 0.0 Nucleated RBC % (a uto) 0 Nucleated RBCs # 0.0 Sodium 143 Potassium 3.4 L Chloride 116 H Carbon Dioxide 22 Anion Gap 8.4 BUN 29 H Creatinine 0.7 GFR Calculation Not Reportable Glucose 154 H POC Glucose 156 H Calculated Osmolal ity 305 H Calcium 7.8 L Total Bilirubin 0.3 AST 38 H ALT 28 Alkaline Phosphata se 111 H Total Protein 4.6 L Albumin 1.9 L Globulin 2.7 08/01/20 08/01/20 20:08 17:16 WBC RBC Hgb Hct MCV MCH MCHC RDW Plt Count MPV Neut % (Auto) Lymph % (Auto) [place] % (Auto) Eos % (Auto) Baso % (Auto) Neut # (Auto) Lymph # (Auto) [place] # (Auto) Eos # (Auto) Baso # (Auto) Nucleated RBC % (a uto) Nucleated RBCs # Sodium Potassium Chloride Carbon Dioxide Anion Gap BUN Creatinine GFR Calculation Glucose POC Glucose 102 112 H Calculated Osmolal ity Calcium Total Bilirubin AST ALT Alkaline Phosphata se Total Protein Albumin Globulin Vitals: Last Vital Signs Temp 97.8 F 08/02/20 12:00 Pulse 65 08/02/20 12:00 Resp 17 08/02/20 12:00 BP 117/72 08/02/20 12:00 Pulse Ox 98 08/02/20 12:00 Discharge Plan Discharge Patient Disposition: Home Health Service Condition: Stable Prescriptions: New fidaxomicin 200 mg tablet 200 mg feeding tube Q12H 10 Days Qty: 20 RF: 0 Eliquis 2.5 mg tablet 2.5 mg PO Q12H Qty: 60 RF: 0 Continued bisacodyl 10 mg Suppository 10 mg IA DAILY PRN (Reason: Constipation) RF: 0 Enema 19-7 gram/118 mL Enema 118 ml IA DAILY PRN (Reason: Constipation) RF: 0 acetaminophen 500 mg Tablet 500 mg feeding tube Q6H PRN (Reason: Pain) Qty: 30 RF: 0 levothyroxine [Levoxyl] 100 mcg Tablet 100 mcg peg-tube DAILY@06 Qty: 30 RF: 0 famotidine 20 mg Tablet 20 mg peg-tube BEDTIME Qty: 30 RF: 0 magnesium hydroxide [Milk of Magnesia] 400 mg/5 mL Suspension 30 ml feeding tube DAILY PRN (Reason: Constipation) Qty: 0 RF: 0 ergocalciferol (vitamin D2) 1,250 mcg (50,000 unit) capsule 50,000 unit feeding tube Q7D Qty: 0 RF: 0 Humulin R Regular U-100 Insuln 100 unit/mL Solution See Rx Instructions .ROUTE .COMPLEX RF: 0 Vitamin C 500 mg Tablet 500 mg PO DAILY RF: 0 atorvastatin 40 mg Tablet 20 mg PO BEDTIME Qty: 30 RF: 0 citalopram 10 mg Tablet 10 mg feeding tube DAILY 30 Days RF: 0 Zofran 4 mg Tablet 4 mg PO Q6H PRN (Reason: Nausea) Qty: 20 RF: 0 Changed metoprolol tartrate 25 mg tablet 12.5 mg feeding tube Q12H Qty: 30 RF: 0 Discontinued Eliquis 5 mg Tablet 5 mg peg-tube Q12H Qty: 60 RF: 0 chlorthalidone 25 mg Tablet 25 mg feeding tube DAILY@08 Qty: 30 RF: 0 lisinopril 40 mg tablet 40 mg feeding tube DAILY@08 Qty: 0 RF: 0 Lantus U-100 Insulin 100 unit/mL Solution 10 unit SUBCUT BID RF: 0 loperamide [Imodium] 2 mg Capsule 2 mg PO Q4H PRN (Reason: Constipation) RF: 0 Discharge Orders: Discharge Order (Routine); Ordered 08/02/20 Ordered By: Ricco Young Other Ambulatory Orders: DME: Hospital Bed (Order) Location: None Selected Ordered By: Ricco Young DME: Miscellaneous (Order) Location: None Selected Ordered By: Ricco Young Referrals: [facility] [Outside] [facility] [Outside] GERALDO Johnson FNP [Primary Care Provider] - 08/04/20 10:20 am Discharge Diet: Resume prior tube feeds Discharge Activity: Increase activity as tolerated Patient Instructions: Clostridium Difficile, Dehydration - Adult, Fidaxomicin (By mouth), How to Use and Care for Your PEG Tube (GEN), Hand Hygiene (DC) Activity Restrictions/Additional Instructions: Return to hospital if any recurrence of watery diarrhea, hypotension, nausea or vomiting Discharge Attestations Time Spent in Discharge Care*: greater than 30 min Specific Discharge Activities: educating patient, educating and/or supporting family/caregiver, discussing with pcp/other providers, discussing with special education case manager/social workers/dc planners, documenting/other paperwork and evaluating patient/reviewing data Status at Discharge: Cognitive status at discharge: cognitively intact, Behavioral status at discharge: cooperative, Functional status at discharge: bed bound Overall status at discharge: patient is progressing back to baseline Quality Metrics Clinical Quality Measures During this hospital stay, did patient experience: None Coding Level of Care Code Acute Pattern Drum Maker for [facility] Fwd Diagnoses Nausea & vomiting R11.2 Acute renal failure N17.9 Hypotensive episode I95.9 Diabetes mellitus, type II E11.9 Hyperlipidemia associated with type 2 diabetes mellitus E11.69; E78.5
[2020-08-02 18:13] VITALS: BP 123/73; PULSE 79; RESP 17; TEMP 36.4; O2SAT 96
[2020-08-03 10:01] LABS: Miscellaneous Test E
--- NOTE | 2020-08-03 10:24 | PC.SOCIAL ---
Discussed critical result of C Diff positive with Dr Young.he indicates pt was placed on Fidaxomicin for that reason and will cover. Updated Daughter Juana that test was positive for C Diff on stool and verified the above medication was picked up. Juana her daughter indicates they do have this medication. We discussed the importance of her completing the medication in its entirety. Daughter verbalized understanding. She was updated that GERALDO Johnson has access to records and they can review with her at next appt. Daughter verbalized understanding and has no questions.
== END 2020-08-02 17:45 | disposition home health service (06) | DRG 372 ==
LOC: ER 11:21 → MEDSURG 16:43
PROVIDERS: Admitting Provider Hospitalist; Emergency Provider Family Medicine; PCP Nurse Practitioner Family; Visit Provider Hospitalist
DX: A04.71 Enterocolitis due to Clostridium difficile, recurrent (principal); N17.9 Acute kidney failure, unspecified; E11.65 Type 2 diabetes mellitus with hyperglycemia; E11.42 Type 2 diabetes mellitus with diabetic polyneuropathy; Z79.4 Long term (current) use of insulin; I10 Essential (primary) hypertension; K21.9 Gastro-esophageal reflux disease without esophagitis; E78.5 Hyperlipidemia, unspecified; E03.9 Hypothyroidism, unspecified; Z98.84 Bariatric surgery status; Z92.3 Personal history of irradiation; R13.10 Dysphagia, unspecified; Z93.1 Gastrostomy status; E55.9 Vitamin D deficiency, unspecified; Z87.891 Personal history of nicotine dependence; I95.9 Hypotension, unspecified; E87.5 Hyperkalemia; I48.0 Paroxysmal atrial fibrillation; Z87.01 Personal history of pneumonia (recurrent)
CPT/HCPCS: 12345; 36415; 36416; 71045; 74177; 80053; 81001; 82274; 82550; 82962; 83605; 83735; 84145; 85025; 85610; 85730; 87086; 87493; 93005; 96372; 97161; 97166; 97535; 99283; J0696; J1160; J1815 ×2; J2405; J2765; J3370; J3480; J3490; J7030; Q0162; Q9967

== ENCOUNTER → 2020-08-14 09:27 | Outpatient (BNVA) | payer MEDICARE, OTHER, SELFPAY | PROVIDERS: PCP Nurse Practitioner Family; Visit Provider Nurse Practitioner Family | DX: R19.7 Diarrhea, unspecified (principal) | CPT/HCPCS: 87493 ==

== ENCOUNTER → 2020-08-21 12:05 | Outpatient (BNVA) | payer MEDICARE, OTHER, SELFPAY | PROVIDERS: PCP Nurse Practitioner Family; Visit Provider Nurse Practitioner Family | DX: A04.72 Enterocolitis due to Clostridium difficile, not specified as recurrent (principal) | CPT/HCPCS: 87493 ==

== ENCOUNTER 2020-09-15 18:25 | Emergency (ER) | payer MEDICARE, OTHER, SELFPAY ==
[2020-09-15 18:33] VITALS: BP 115/80; PULSE 104; RESP 16; TEMP 37.1; O2SAT 97; BMI 20.2
--- NOTE | 2020-09-15 18:53 | CTR_ITS ---
PROCEDURE INFORMATION: Exam: CT Abdomen And Pelvis With Contrast Exam date and time: 09/15/2020 7:51 PM Age: 80 years old Clinical indication: Abdominal pain; Generalized; Prior surgery; Surgery type: Gastric bypass, appy, gb, hyst, feeding tube; Additional info: C diff, abdominal pain and distension TECHNIQUE: Imaging protocol: Computed tomography of the abdomen and pelvis with contrast. Radiation optimization: All CT scans at this facility use at least one of these dose optimization techniques: automated exposure control; mA and/or kV adjustment per patient size (includes targeted exams where dose is matched to clinical indication); or iterative reconstruction. Contrast material: OMNI 300; Contrast volume: 95 ml; Contrast route: INTRAVENOUS (IV); COMPARISON: 1. CT abdomen pelvis w con* [id number] 07/28/2020 12:[address] abdomen pelvis w con* [id number] 06/09/2020 1:43:04 PM RADIATION DOSE METRICS: Total DLP (mGy-cm): 1200.37 FINDINGS: Tubes, catheters and devices: Jejunostomy tube is present. Lungs: There is some mild dependent atelectasis at the lung bases. Pleural spaces: There are small bilateral pleural effusions more on the right than on the left. Liver: Normal. No mass. Gallbladder and bile ducts: There has been a cholecystectomy. There is moderate dilatation of the biliary tract with common bile duct measuring 16 mm and moderate intrahepatic biliary tract dilatation . This is not unusual finding post cholecystectomy, however the degree of biliary tract dilatation is increased compared with 07/28/2020 and is similar to 06/09/2020 Pancreas: Pancreas is extremely atrophic and fatty replaced. Spleen: The spleen demonstrates punctate calcifications, consistent with remote granulomatous organism exposure. Adrenal glands: The adrenal glands are normal. Kidneys and ureters: There is a small cyst in the left kidney. There is no evidence of hydronephrosis. There is no evidence of renal or ureteral calcifications. Stomach and bowel: There has been a gastric stapling and bypass. No evidence for bowel obstruction. There is mild wall thickening of the descending and sigmoid colon which could represent some mild colitis. Appendix: Not Identified Intraperitoneal space: Unremarkable. No free air. No significant fluid collection. Vasculature: The aorta demonstrates moderate atherosclerotic calcification. There is no evidence of an abdominal aortic aneurysm. There is some atherosclerotic calcification at the origins of the celiac and superior mesenteric artery. There is atherosclerotic calcification in the proximal mid superior mesenteric artery without stenosis. Lymph nodes: Unremarkable. No enlarged lymph nodes. Urinary bladder: Unremarkable as visualized. Reproductive: There has been a hysterectomy. Bones/joints: The lumbar spine demonstrates mild degenerative changes at multiple levels. Soft tissues: There is some large calcifications seen incidentally in the right breast, probably large calcified fibroadenomas. CT/CT abdomen pelvis w con* [id number] IMPRESSION: 1. Question of mild colitis of the descending colon. 2. Increasing biliary tract dilatation. 3. Small bilateral pleural effusions. 4. Stable postoperative findings COMMENTS: Consistent with the [employer]'s Incidental Findings Committee white paper (J Am Shree Radiol 2018): Any incidental renal lesion less than 1 cm or classified as too small to characterize, or any incidental cystic renal lesion characterized as simple-appearing, is likely benign. No follow-up imaging is recommended for these lesions per consensus recommendations based on imaging criteria. Radiation Dose CTDIVOL = (mGy): DLP = 1200.37 (mGy-cm)
[2020-09-15 19:32] LABS: Basophils # 0.1 10^3/uL (0.0-0.1); Basophils % 0.5 %; Eosinophils % 0.1 %; Hematocrit 43.8 % (37.0-47.0); Hemoglobin 13.5 g/dL (11.5-15.3); Lymphocytes # 1.3 10^3/uL (0.8-4.8); Lymphocytes % 11.6 %; Mean Corpuscular HGB Conc 30.8 g/dL (30.0-36.0); Mean Corpuscular Hemoglobin 29.6 pg (28.0-34.0); Mean Corpuscular Volume 96.1 fL (81-99); Mean Platelet Volume 11.6 fL (7.4-10.4); Monocytes # 0.6 10^3/uL (0.2-0.9); Neutrophils # 9.14 10^3/uL (1.8-7.7); Neutrophils % 82.4 %; Nucleated Red Blood Cells % 0 %; Platelet Count 243 10^3/cmm (130-400); Red Blood Count 4.56 10^6/uL (4.1-5.3); Red Cell Distribution Width 14.7 % (12.1-15.1); White Blood Count 11.1 10^3/uL (4.0-10.0)
[2020-09-15] MEDS: sodium chloride 0.9% 1,000 ML 999 ML IV (19:35)
--- NOTE | 2020-09-15 19:39 | ED_ITS ---
HPI - Nausea/Vomiting/Diarrhea General: Chief complaint: Nausea/Vomiting/Diarrhea Stated complaint: Diarrhea/Dehydration Time Seen by Provider: 09/15/20 18:41 Source: patient Mode of arrival: ambulatory Limitations: no limitations History of Present Illness: HPI Narrative: This 80 year old female has a history of brain cancer and following radiation to her brain she sustained e sophageal injury and dysmotility. She therefore aspirates if she eats or drinks anything and now has a PEG tube for all feeds. The daughter states that the patient has been getting frequent episodes of C. difficile and she says about every 3 weeks she gets bouts of severe watery diarrhea. She had another episode currently and the daughter took a sample of her stool to the clinic. She however complains of abdominal pain and distention which is new for her. She denies any vomiting. Denies any fever. She does have some dizziness. MD elicited complaint: nausea, diarrhea and abdominal pain Pertinent past history: other (PEG tube and c.diff) Description of diarrhea: watery Associated nausea: Yes Associated abdominal pain: Yes Location of pain: Diffuse Pain consistency: constant Severity: moderate Quality: cramping Exacerbating factors: none Relieving factors: none Associated symtoms: Reports fatigue and nausea; Denies altered mental status, anxiety, bloating, change in vision, chest pain, cough, diaphoresis, decreased urine output, dizziness, dysuria, epistaxis, fecal incontinence, fevers/chills, headache(s), anorexia, malaise, myalgias, numbness, palpitations, rash, short of breath, syncope, tenesmus or tinnitus Review of Systems General: Reports: 10 or more systems reviewed and unremarkable except in HPI and below Const: Reports: fatigue; Denies: malaise or diaphoresis Eyes: Denies: change in vision ENMT: Denies: tinnitus or epistaxis Card: Denies: chest pain, palpitations or syncope Resp: Denies: dyspnea, productive cough or non-productive cough GI: Reports: nausea; Denies: bloating or fecal incontinence : Denies: dysuria Musc: Denies: neck pain, back pain or extremity swelling Skin/Breast: Denies: rash, pruritus or erythema Neuro: Denies: headache(s) or dizziness Psych: Denies: anxiety Endo: Denies: polyuria, polydipsia or tired all the time PFSH ED PFSH: Medical History At risk for aspiration related to tube feeding Brain tumor Cricopharyngeal achalasia Diabetes mellitus, type II Diabetic polyneuropathy Diarrhea Essential hypertension, benign G tube feedings GERD (gastroesophageal reflux disease) GERD (gastroesophageal reflux disease) Hyperlipidemia associated with type 2 diabetes mellitus Hypertension Patient has been controlled with oral blood pressure medications. Hypothyroid Smell, impaired Taste absent Vitamin D deficiency Patient has history of Vitamin D deficiency. Surgical History H/O brain surgery Brain Tumor removed 2011 History of bladder surgery S/P appendectomy S/P arthroscopy of left shoulder S/P cataract surgery S/P cholecystectomy S/P gastric bypass S/P vaginal hysterectomy Status post corneal transplant Social History Smoking and tobacco status: former smoker Second hand smoke exposure: No Smoking risk assessment/counseling performed?: No Alcohol intake: never Desire information about alcohol rehabilitation?: No Counseling given: No Desire information about substance/drug rehabilitation?: No Counseling given: No Physical Exam Const: COMMON NORMALS: no acute distress, average body habitus, patient oriented x3, no limitations, healthy appearing, alert and well nourished EXAM LIMITATIONS: no altered mental status HENMT: COMMON NORMALS: normocephalic, atraumatic and moist oral mucous membranes HEAD & SCALP: normocephalic and atraumatic Neck/C-Spine: COMMON NORMALS: no meningeal signs and no JVD Resp: COMMON NORMALS: normal respiratory effort, No retractions, No use of accessory muscles, clear to auscultation bilaterally and percussion normal AUSCULTATION: clear to auscultation bilaterally PERCUSSION: percussion normal Cardio: COMMON NORMALS: no JVD, regular rate, regular rhythm, S1 normal heart sound present, S2 normal heart sound present, No gallops present (Cardio), No clicks present (Cardio), No murmurs present (Cardio), No rub (Cardio) and Peripheral pulses 2+ throughout RATE: regular rate RHYTHM: regular rhythm HEART SOUNDS: S1 normal heart sound present and S2 normal heart sound present PERIPHERAL PULSES: Peripheral pulses 2+ throughout GI: COMMON NORMALS: Normal to inspection, nondistended, normoactive bowel sounds present, Soft to palpation, non-tender, No hepatosplenomegaly present, no masses and no bruits PALPATION: Yes Soft to palpation and Yes No hepatosplenomegaly present Extremity: COMMON NORMALS: normal to inspection, full ROM, capillary refill normal, no calf tenderness and no pedal edema Neuro: COMMON NORMALS: patient oriented x3 SENSORIUM/ORIENTATION: Yes alert MENINGEAL SIGNS: Yes no meningeal signs Skin: COMMON NORMALS: no rashes or lesions noted, no wounds, turgor normal, no jaundice, no petechiae and no mottling GENERAL SKIN EXAM: no rashes or lesions noted and turgor normal Course Consultations: Consultation #1: Dr. Belle at [facility] in [place] kindly accepted the patient to his service Time: 22:30 Vital Signs: Vital signs: Vital Signs Temperature 98.7 F 09/15/20 18:33 Pulse Rate 85 09/15/20 22:38 Respiratory Rate 18 09/15/20 22:38 Blood Pressure 146/74 09/15/20 22:38 Pulse Oximetry 95 09/15/20 22:38 MDM - Nausea/Vomiting/Diarrhea MDM Narrative: Medical decision making narrative: 80-year-old female who presents to the emergency department with abdominal pain and diarrhea. Evaluation in the emergency department shows that she has elevated liver enzymes and intra hepatic and extrahepatic duct dilatation and CBD dilation of about 16 mm. This is increased compared to the CT scan done 2 months ago. She will therefore need an ERCP and is being transferred to [facility] in [place] for this. Medical Records: Attestation: I reviewed the patient's medical records. Lab Data: Attestation: I reviewed the patient's lab results. Labs: Lab Results 09/15/20 09/15/20 09/15/20 Range/Units 19:24 19:24 19:24 WBC 11.1 H (4.0-10.0) 10^3/ uL RBC 4.56 (4.1-5.3) 10^6/u L Hgb 13.5 (11.5-15.3) g/dL Hct 43.8 (37.0-47.0) % MCV 96.1 (81-99) fL MCH 29.6 (28.0-34.0) pg MCHC 30.8 (30.0-36.0) g/dL RDW 14.7 (12.1-15.1) % Plt Count 243 (130-400) 10^3/c mm MPV 11.6 H (7.4-10.4) fL Neut % (Auto) 82.4 % Lymph % (Auto) 11.6 % [place] % (Auto) 5.0 % Eos % (Auto) 0.1 % Baso % (Auto) 0.5 % Neut # (Auto) 9.14 H (1.8-7.7) 10^3/u L Lymph # (Auto) 1.3 (0.8-4.8) 10^3/u L [place] # (Auto) 0.6 (0.2-0.9) 10^3/u L Eos # (Auto) 0.0 (0.0-0.8) 10^3/u L Baso # (Auto) 0.1 (0.0-0.1) 10^3/u L Nucleated RBC % (a uto) 0 % Nucleated RBCs # 0.0 /100WBC Sodium 136 (136-145) mmol/L Potassium 4.2 (3.5-5.1) mmol/L Chloride 101 (98-107) mmol/L Carbon Dioxide 25 (22-29) mmol/L Anion Gap 14.2 (5-19) BUN 32 H (8-23) mg/dL Creatinine 0.6 (0.5-0.9) mg/dL GFR Calculation Not Reportable Glucose 210 H (65-115) mg/dL Calculated Osmolal ity 295 (285-295) mOsm/k g Lactate 2.1 (0.5-2.2) mmol/L Calcium 8.5 (8.5-10.5) mg/dL Total Bilirubin 0.9 (0.15-1.2) mg/dL AST 156 H (0-32) U/L ALT 141 H (0-33) U/L Alkaline Phosphata se 195 H (35-105) IU/L Total Protein 6.6 (6.6-8.7) g/dL Albumin 3.5 (3.5-5.2) g/dL Globulin 3.1 (1.3-4.6) g/dL Lipase 6 L (13-60) U/L Imaging Data^: CT Abd/Pel: Attestation: I personally reviewed and interpreted this imaging study as follows: Radiologist's impression: [facility] [address] [address] Scan Report Signed Patient: Kaur Garland #: [id number] : 1940Acct#:[id number] Age/Sex: 80 / FADM Date: 09/15/20 Loc: ERRoom/Bed: Attending Dr: Ordering Provider/Ordering MD: Otoniel Hamlin MD, [facility] Date of Service: 09/15/20 Procedure(s): CT abdomen pelvis w con* [id number] Accession Number(s): [id number] Report Number: [id number] PROCEDURE INFORMATION: Exam: CT Abdomen And Pelvis With Contrast Exam date and time: 09/15/2020 7:51 PM Age: 80 years old Clinical indication: Abdominal pain; Generalized; Prior surgery; Surgery type: Gastric bypass, appy, gb, hyst, feeding tube; Additional info: C diff, abdominal pain and distension TECHNIQUE: Imaging protocol: Computed tomography of the abdomen and pelvis with contrast. Radiation optimization: All CT scans at this facility use at least one of these dose optimization techniques: automated exposure control; mA and/or kV adjustment per patient size (includes targeted exams where dose is matched to clinical indication); or iterative reconstruction. Contrast material: OMNI 300; Contrast volume: 95 ml; Contrast route: INTRAVENOUS (IV); COMPARISON: 1. CT abdomen pelvis w con* [id number] 07/28/2020 12:[address] abdomen pelvis w con* [id number] 06/09/2020 1:43:04 PM RADIATION DOSE METRICS: Total DLP (mGy-cm): 1200.37 FINDINGS: Tubes, catheters and devices: Jejunostomy tube is present. Lungs: There is some mild dependent atelectasis at the lung bases. Pleural spaces: There are small bilateral pleural effusions more on the right than on the left. Liver: Normal. No mass. Gallbladder and bile ducts: There has been a cholecystectomy. There is moderate dilatation of the biliary tract with common bile duct measuring 16 mm and moderate intrahepatic biliary tract dilatation . This is not unusual finding post cholecystectomy, however the degree of biliary tract dilatation is increased compared with 07/28/2020 and is similar to 06/09/2020 Pancreas: Pancreas is extremely atrophic and fatty replaced. Spleen: The spleen demonstrates punctate calcifications, consistent with remote granulomatous organism exposure. Adrenal glands: The adrenal glands are normal. Kidneys and ureters: There is a small cyst in the left kidney. There is no evidence of hydronephrosis. There is no evidence of renal or ureteral calcifications. Stomach and bowel: There has been a gastric stapling and bypass. No evidence for bowel obstruction. There is mild wall thickening of the descending and sigmoid colon which could represent some mild colitis. Appendix: Not Identified Intraperitoneal space: Unremarkable. No free air. No significant fluid collection. Vasculature: The aorta demonstrates moderate atherosclerotic calcification. There is no evidence of an abdominal aortic aneurysm. There is some atherosclerotic calcification at the origins of the celiac and superior mesenteric artery. There is atherosclerotic calcification in the proximal mid superior mesenteric artery without stenosis. Lymph nodes: Unremarkable. No enlarged lymph nodes. Urinary bladder: Unremarkable as visualized. Reproductive: There has been a hysterectomy. Bones/joints: The lumbar spine demonstrates mild degenerative changes at multiple levels. Soft tissues: There is some large calcifications seen incidentally in the right breast, probably large calcified fibroadenomas. CT/CT abdomen pelvis w con* [id number] IMPRESSION: 1. Question of mild colitis of the descending colon. 2. Increasing biliary tract dilatation. 3. Small bilateral pleural effusions. 4. Stable postoperative findings COMMENTS: Consistent with the [place] [employer]'s Incidental Findings Committee white paper (J Am Shree Radiol 2018): Any incidental renal lesion less than 1 cm or classified as too small to characterize, or any incidental cystic renal lesion characterized as simple-appearing, is likely benign. No follow-up imaging is recommended for these lesions per consensus recommendations based on imaging criteria. Radiation Dose CTDIVOL = (mGy): DLP = 1200.37 (mGy-cm) Dictated By:Fidencio Palencia Signed By:Jeremiah Palenciaigned Date/Time:09/15/202111 DD/ 10 Discharge Plan Discharge Patient Disposition: Xfer Short-Term Hosp Clinical Impression: Colitis, Dilation of biliary tract, Transaminitis Condition: Stable Referrals: Elizabeth,GERALDO, AUT[employer]OT[employer] FINANCE MANAGER [Primary Care Provider] - Coding Level of Care Code ED Logger All Round for Chg Fwd Exam Comprehensive
[2020-09-15 19:46] LABS: Alanine Aminotransferase 141 U/L (0-33); Albumin Level 3.5 g/dL (3.5-5.2); Alkaline Phosphatase 195 IU/L (35-105); Anion Gap 14.2 (5-19); Aspartate Amino Transferase 156 U/L (0-32); Blood Urea Nitrogen 32 mg/dL (8-23); Calcium 8.5 mg/dL (8.5-10.5); Carbon Dioxide 25 mmol/L (22-29); Chloride 101 mmol/L (98-107); Globulin 3.1 g/dL (1.3-4.6); Glucose 210 mg/dL (65-115); Lipase 6 U/L (13-60); Osmolality Calculated 295 mOsm/kg (285-295); Potassium 4.2 mmol/L (3.5-5.1); Sodium 136 mmol/L (136-145); Total Bilirubin 0.9 mg/dL (0.15-1.2); Total Protein 6.6 g/dL (6.6-8.7)
[2020-09-15 19:47] LABS: Lactate (Lactic Acid level) 2.1 mmol/L (0.5-2.2)
[2020-09-15 19:59] VITALS: BP 131/61; RESP 16; O2SAT 95
[2020-09-15] MEDS: iohexol 300 mg/mL 100 mL Btl IV (20:18)
[2020-09-15 21:03] VITALS: BP 135/70; RESP 16; O2SAT 95
[2020-09-15 22:38] VITALS: BP 146/74; PULSE 85; RESP 18; O2SAT 95
[2020-09-15] MEDS: cefepime 1,000 MG in sodium chloride 0.9% (plus) 50 ML 100 MG IV (23:01)
[2020-09-15 23:39] VITALS: BP 145/71; PULSE 72; RESP 18; O2SAT 95
[2020-09-16 00:31] VITALS: BP 141/67; PULSE 82; RESP 14; O2SAT 96
[2020-09-16 02:08] VITALS: BP 155/91; PULSE 82; RESP 14; O2SAT 96
[2020-09-16 02:28] LABS: Protein Urine 1+ (Negative); Specific Gravity, Urine 1.012 (1.005-1.030); Urine Color Yellow (Yellow); pH Urine 5 (5-7)
[2020-09-16 02:29] LABS: Add Urine Microscopic? YES; Bilirubin Urine 1+ (Negative); Blood Urine Trace (Negative); Glucose Urine UA Norm (Normal); Ketones Urine 1+ (Negative); Leukocyte Esterase Urine 1+ (Negative); Nitrate Urine Positive (Negative); Urobilinogen Urine Norm (Negative)
[2020-09-16 02:52] LABS: Add Urine Culture? No; Bacteria Urine 4+ /hpf; Squamous Epithelial Cell Urine 25-40 /hpf (0-5); WBC Urine >100 /hpf (0-5)
[2020-09-16 03:33] VITALS: BP 151/71; PULSE 82; RESP 18; O2SAT 96
== END 2020-09-16 03:44 | disposition short-term general hospital (02) ==
PROVIDERS: Emergency Provider Family Medicine; PCP Nurse Practitioner Family
DX: K52.9 Noninfective gastroenteritis and colitis, unspecified (principal); R74.01 Elevation of levels of liver transaminase levels; E11.42 Type 2 diabetes mellitus with diabetic polyneuropathy; I10 Essential (primary) hypertension; E78.5 Hyperlipidemia, unspecified; Z87.891 Personal history of nicotine dependence
CPT/HCPCS: 74177; 80053; 81001; 83605; 83690; 85025; 87040; 87493; 96365; 99285; J0692; J7030; Q9967